=== PATIENT | female | born 1965 | race Caucasian/White ===

== ENCOUNTER 2017-06-21 11:00 | Outpatient (RCR) | payer OTHER, SELFPAY ==
--- NOTE | 2017-03-16 16:15 | HP.PTEVAL_ITS ---
Patient's Visit Information YVES INMAN is a 51 year old F referred to Physical Therapy by Kiara Justice with a diagnosis of Left Hip. Date of Evaluation: 03/16/17 Physical Therapist: Mary Lou Scott - Visit Plan Frequency: 2x /Week Duration: 4 Weeks Plan: Dry Needling and Aquatic Therapy for core s/s. - Subjective Subjective: 3 years ago she was having to use a walker due to what they thought was back pain- had several injections, normal EMG- 1/5 years of pain and was diagnosed with L5-S1 radiculopathy. Ended up with a torn hip labrum on the left oneal with radiating pain. Had surgery in December [address] Cordero and she had no idea the recovery. She can now walk but does her hip exercises at least 2x a week or it pops. She has hamstring tightness and glut tightness and her PCP sent her here for dry needling. Still had pain down the leg when her hip is really tight but not all the time and its nerve pain when it happens. Agg: stair climbing and walking long distances. Worst: 5/10 Best: 0/10 Eases: massage (every 3 weeks), tennis ball in her gluts. From surgery patient feels that she is 40% better. Sleep: disturbed toss/turn a lot at night. Surgeon has discharged her and suggested PT and aquatic therapy. - Objective Posture: FH, RS, Increased kyphosis- can correct with verbal cues. Gait: no deviation notes. HR/TR: able without incidence. SLS: 30 sec but incresed muscle activation left>right. ROM: WFL in all planes. Strength: Ankle: 5/5, Knee: 5/5, Hip: 4/5. Core: fair minus. FABBIR: positive, FELIX: Positive. Flexibility: HS: moderate, Gastroc: moderate - Goals Goal 1:: Patient will be I with HEP and progression Goal Time Frame: 4-6 Weeks Goal 2:: Patient will maintain proper posture t/o tx session to demo increased core s/s. Goal Time Frame: 4-6 Weeks Goal 3:: Patient will report 0/10 pain for 1 week Goal Time Frame: 4-6 Weeks Goal 4:: Patient will demo negative special tests for hip tightness Goal Time Frame: 4-6 Weeks - Rehabilitation Potential Physical Therapy Diagnosis: Patient present with hypmobility- she has decreased strength and muscular endurnace Rehabilitation Potential: Good - Anticipated Interventions Patient/Client Instruction: Educate patient on: Benefits of Fitness Program For the Purpose of:: To increase tolerance to activity/condition/position Therapeutic Exercise to Include: Strength training, Endurance training, Balance training, Body mechanics, Postural training, Flexibilty training, Gait and locomotor training, Dynamic Lumbar Stabilization For the Purpose of:: To improve muscle performance and motor function Manual Therapy Techniques to Include: Functional dry needling, Soft tissue mobilization For the Purpose of:: To improve nutrient delivery to tissue TENS: Yes Cryotherapy (ice pack, ice massage): Yes Thermo therapy (hot pack): Yes Ultrasound (thermal/non thermal): Yes For the Purpose of:: To decrease pain Thank you for the opportunity to evaluate your patient. For Medicare and Medicare HMO plans, please review the plan of care and approve it. It will need to be FAXED BACK to us at [phone] for Medicare purposes. Please let me know if there are questions or concerns regarding this plan of care. Physician Signature: Date:
--- NOTE | 2017-04-13 11:27 | HP.PTREVAL_ITS ---
Kiara Justice, It has been my pleasure to treat YVES INMAN over the last 10 visits for Left Hip. Please see the progress note below for an update on the physical therapy plan of care! Subjective: In pain from Tuesday did a lot more in the pool and it was just to much and then stood for 14 hours in [place] for an event on Tuesday so she is flared up today. Before the flare up she was making progress. The needling helpiing and was working towards goals in the pool. Wants to be able to stand from commode without the use of her hands and going up the stairs without pain. Feels that she is 30% towards her goals- but was able to picture herself being able to do land exercises again. Objective/Function: Patient was able to complete without incidence. She does have some bruising along her right hip but it is not painful. She had less pain at end of session- Posture is improving throughout physical therapy- she has incresase strength by one manual muscle grade. Plan Plan: Cont with POC- 2x a week for pool and 1 x for aquatics Goals Goal 1:: Patient will be I with HEP and progression Goal Time Frame: 4-6 Weeks Goal Progress: Progressing Goal 2:: Patient will maintain proper posture t/o tx session to demo increased core s/s. Goal Time Frame: 4-6 Weeks Goal Progress: Progressing Goal 3:: Patient will report 0/10 pain for 1 week Goal Time Frame: 4-6 Weeks Goal Progress: Progressing Goal 4:: Patient will demo negative special tests for hip tightness Goal Time Frame: 4-6 Weeks Goal Progress: Progressing Anticipated Interventions Patient/Client Instruction: Educate patient on: Benefits of Fitness Program For the Purpose of:: To increase tolerance to activity/condition/position Therapeutic Exercise to Include: Strength training, Endurance training, Balance training, Body mechanics, Postural training, Flexibilty training, Gait and locomotor training, Dynamic Lumbar Stabilization For the Purpose of:: To improve muscle performance and motor function Manual Therapy Techniques to Include: Functional dry needling, Soft tissue mobilization For the Purpose of:: To improve nutrient delivery to tissue TENS: Yes Cryotherapy (ice pack, ice massage): Yes Thermo therapy (hot pack): Yes Ultrasound (thermal/non thermal): Yes For the Purpose of:: To decrease pain Please do not hesitate to contact me at [phone] by phone or Fax: if you have questions or concerns regarding this new plan of care! Sincerely, Mary Lou Scott
== END 2017-06-21 11:30 | disposition home or self-care (01) ==
LOC: PT 11:00
PROVIDERS: Family Provider Internal Medicine; PCP Internal Medicine; Visit Provider Internal Medicine
DX: M25.552 Pain in left hip (principal); M79.605 Pain in left leg
CPT/HCPCS: 97113; 97140; 97161; 97530

== ENCOUNTER → 2017-10-25 08:48 | Outpatient (CLI) | payer OTHER, SELFPAY ==
[2017-10-25 10:51] LABS: ALB/GLOB Ratio 1.3 RATIO (0.9-2.4); AST(SGOT) 14 U/L (15-37); Alanine Aminotransfer ALT/SGPT 21 U/L (13-56); Albumin, Serum 3.8 g/dL (3.2-5.0); Alkaline Phosphatase 94 U/L (45-117); Anion Gap 8 (5-15); BUN 16 mg/dL (7-18); BUN/Creat Ratio 22.1 RATIO (10-20); Calcium,Total 8.7 mg/dL (8.5-10.1); Chloride 106 mmol/L (98-107); Cholesterol 243 mg/dL (200); Creatinine, Serum 0.72 mg/dL (0.55-1.02); EST Glomerular Filtration Rate 90 mL/min (>60); Est Glom Filt Rate - Afr Amer 109 mL/min (>60); Glucose 86 mg/dL (74-106); High Density Lipoprotein 73 mg/dL; Potassium 4.2 mmol/L (3.5-5.1); Protein, Total 6.8 g/dL (6.4-8.2); Sodium Level 142 mmol/L (136-145); Thyroid Stim Hormone (TSH) 1.89 uIU/mL (0.358-3.74); Triglycerides 60 mg/dL; Very Low Density Lipoprotein 12 mg/dL (5-40)
[2017-10-26 09:44] LABS: PTHIN 33.3 pg/mL (18.4-80.1)
[2017-10-26 09:53] LABS: Vitamin D,25 Hydroxy 52.6 ng/mL (29.95-100.01)
[2017-10-26 16:11] LABS: Endomysial Antibody IgA Negative (Negative); Immunoglobulin A 114 mg/dL (87-352)
[2017-10-27 12:52] LABS: t-Transglutaminase IgA <2 U/mL (0-3)
== END ==
PROVIDERS: Family Provider Internal Medicine; PCP Internal Medicine; Visit Provider Internal Medicine
DX: R10.84 Generalized abdominal pain (principal); E04.2 Nontoxic multinodular goiter; E55.9 Vitamin D deficiency, unspecified; E78.2 Mixed hyperlipidemia; R68.82 Decreased libido; E21.5 Disorder of parathyroid gland, unspecified
CPT/HCPCS: 36415; 80053; 80061; 82306; 82627; 82784; 83516; 83970; 84443; 86255; 82626

== ENCOUNTER 2017-12-28 16:30 | Outpatient (RCR) | payer SELFPAY ==
--- NOTE | 2017-12-19 13:45 | HP.PTEVAL_ITS ---
Patient's Visit Information YVES INMAN is a 52 year old F referred to Physical Therapy by Out of Town Doctor with a diagnosis of L hip pain. Date of Evaluation: 12/14/17 Physical Therapist: Mian Mayo - Visit Plan Frequency: 1x/Week Duration: 4 Weeks Plan: DN to inferior glute, ischial tuberosity, piriformis. - Subjective Subjective: Pt. is here today for her initial evaluation with diagnosis of L hip pain. Pt. is known to this PT from previous PT episodes. 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 Pt. reports having improved symptoms since starting PT at alternate facility with light core stability exercises. Pt. has had injections into her glute without improvement. Pt. denies N/T and no groin pain. Pt. did have MRI of hip labrum without issues , no tear noted. Pt. continues to have pain with prolonged sitting and with aggressive exercises. Pt. is hopeful to break up her scar tissue with DN reducing symptoms. - Pain L posterior hip Pain Intensity (Out of 10): 2 Pain Intensity Range: 1, 4 - Objective POSTURE: PT. has normal posture in sitting and standing. Pt. has slight increased lumbar lordosis. PALPATION: Pt. has increased tenderness at inferior L glute, at ischial tuberosity. NO lumbar spine issues. NEUROLOGICAL: Normal, all intact. ROM: Pt. has normal ROM of lumbar spine. Slight reduction in hip IR on L side. normal HS length and hip flexor length. - Goals Goal 1:: Pt. to be I with HEP. Goal Time Frame: 4-6 Weeks Goal 2:: Pt. to have icnreased hip IR without increase in symptoms. Goal Time Frame: 4-6 Weeks Goal 3:: Pt. to be able to sit without issues for unlimited time. - Rehabilitation Potential Physical Therapy Diagnosis: Pt. has signs and symptoms consitent with L hip pain. Pt. and physician are hopeful to decrease L gluteal scar tissue with DN allowing for reduce pressure to sciatic nerve. Rehabilitation Potential: Fair - Anticipated Interventions Patient/Client Instruction: Educate patient on: Condition, Plan of Care, Risk Factors, Benefits of Fitness Program For the Purpose of:: To improve health and function, To foster healthy habits, To improve decision making, To facilitate caregiver knowledge, To improve self management, To prevent re-injury, To improve ability to perform tasks related to life management, To improve tolerance to ADL's Manual Therapy Techniques to Include: Functional dry needling, Soft tissue mobilization For the Purpose of:: To improve health of tissue, To decrease soft tissue restriction, To increase flexibility/ROM Thank you for the opportunity to evaluate your patient. For Medicare and Medicare HMO plans, please review the plan of care and approve it. It will need to be FAXED BACK to us at [phone] for Medicare purposes. Please let me know if there are questions or concerns regarding this plan of care. Physician Signature: Date:
--- NOTE | 2018-04-28 14:07 | HP.PT.NRP ---
HP - Discharge Summary (1) - Patient Information YVES INMAN was seen in my office for initial evaluation on 12/14/17. The following Plan of Care was established for this patient: Initial Frequency: 1x/Week Initial Duration: 4 Weeks - Anticipated Interventions Patient/Client Instruction: Educate patient on: Condition, Plan of Care, Risk Factors, Benefits of Fitness Program For the Purpose of:: To improve health and function, To foster healthy habits, To improve decision making, To facilitate caregiver knowledge, To improve self management, To prevent re-injury, To improve ability to perform tasks related to life management, To improve tolerance to ADL's Manual Therapy Techniques to Include: Functional dry needling, Soft tissue mobilization For the Purpose of:: To improve health of tissue, To decrease soft tissue restriction, To increase flexibility/ROM This patient was last seen in our office 12/28/17. Pertinent comments regarding their Physical therapy will appear below: Pt. was seen for self pay dry needling of her hip. Pt. was doing well, but did not attend her last visit. Pt. has not been seen in ~4 months and will be DC from PT at this point in time. At this point I will be discontinuing this patient from physical therapy. I would be happy to see this patient again in the future if found appropriate by the physician. Thank you! Mian Mayo
== END 2017-12-28 19:00 | disposition home or self-care (01) ==
LOC: PT 16:30
PROVIDERS: Family Provider Internal Medicine; PCP Internal Medicine
DX: R69 Illness, unspecified (principal)

== ENCOUNTER 2018-05-08 19:56 | Observation (INO) | payer OTHER, SELFPAY ==
[2018-05-08] VITALS (7 sets, daily range): BP systolic 118–169; BP diastolic 79–111; PULSE 83–106; RESP 12–23; TEMP 36.5; O2SAT 94–100; BMI 28.8
--- NOTE | 2018-05-08 20:15 | RAD_ITS ---
STUDY: X-RAY CHEST REASON FOR EXAM: Female, 52 years old. Left arm numbness TECHNIQUE: Frontal and lateral views of the chest. COMPARISON: None. FINDINGS: Lungs are hyperaerated. The lungs are clear and expanded. There is no demonstrated pleural abnormality. Normal size heart. Normal mediastinum and terry. Normal visualized pulmonary arteries. Normal visualized aortic arch and descending thoracic aorta. Normal visualized thoracic spine. Normal visualized ribs, clavicles, and shoulders. There is no demonstrated abnormality of the visualized soft tissue structures of the upper abdomen. IMPRESSION: COPD otherwise Normal x-ray examination of the chest. Electronically Signed: Elio Garvin MD at 21:31 EST , Service support , RAD/Chest PA and Lateral
--- NOTE | 2018-05-08 20:15 | EKG12_ITS ---
Test Reason : Blood Pressure : / mmHG Vent. Rate : 095 BPM Atrial Rate : 095 BPM P-R Int : 146 ms QRS Dur : 078 ms QT Int : 368 ms P-R-T Axes : 059 042 041 degrees QTc Int : 462 ms Normal sinus rhythm Possible Left atrial enlargement Nonspecific T wave abnormality Prolonged QT Abnormal ECG Confirmed by JORGE WATTS, JAILYN ([id number]), writer editor SIDDHARTH COOK ([id number]) on 05/11/2018 3:36:23 PM Referred By: BEVERLY Confirmed By:JAILYN PATEL MD
--- NOTE | 2018-05-08 20:28 | CT_ITS ---
STUDY: CT BRAIN WITHOUT CONTRAST REASON FOR EXAM: Female, 52 years old. Left-sided facial numbness and weakness RADIATION DOSAGE (If Supplied By Facility): CTDIvol = ( 44.99 ) mGy, DLP = ( 745.49 ) mGycm TECHNIQUE: Transaxial CT imaging of the brain was performed without administration of intravenous contrast material. Individualized dose optimization techniques were used for this CT. COMPARISON: MR brain December 07, 2019 3916 FINDINGS: Normal soft tissue structures. Normal calvarium. Normal size ventricles and extra-axial spaces for the patient's age. Normal white matter tracts of the cerebral hemispheres. Normal basal ganglia and thalami. Normal brainstem. Normal cerebellum. There is no intracranial hemorrhage. There are no findings of an acute ischemic infarction. Normal visualized paranasal sinuses. CT/Brain/Head without Contrast IMPRESSION: Normal unenhanced CT scan of the brain. Electronically Signed: Elio Garvin MD at 21:17 EST , Service support ,
[2018-05-08 20:34] LABS: Absolute Lymphocyte Count 3.83 X10^3/ul (0.83-4.51); Absolute Neutrophil Count 2.3 X10^3/uL (2.0-7.7); Basophil# 0.04 X10^3/uL; Basophil% 0.6 % (0-1); Eosinophil# 0.14 X10^3/uL; Hematocrit 42.5 % (37-47); Hemoglobin 14.3 g/dl (12.0-15.0); International Normalized Ratio 0.9; Lymphocyte # 3.83 X10^3/ul (4.0); Lymphocyte % 55.8 % (19-41); Mean Corp Hgb Conc 33.6 g/gl (32-36); Mean Corpuscular Hgb 31.9 pg (27.0-32.0); Mean Corpuscular Volume 94.9 fL (81-99); Mean Platelet Vol. 10.8 fl (6.2-12.0); Monocyte# 0.53 X10^3/uL; Monocyte% 7.7 % (0-10); Neutrophil # 2.31 X10^3/uL (2.7-7.7); Neutrophil % 33.8 % (47-70); Partial Thromboplast Time 26.8 Seconds (24.1-36.2); Platelet Count 215 K/mm3 (150-450); RBC Distribution Width CV 12.2 % (11.6-14.6); RBC Distribution Width SD 41.7 fl (35.1-43.9); Red Blood Count 4.48 M/mm3 (4.2-5.4); White Blood Count 6.9 K/mm3 (4.4-11.0)
[2018-05-08 20:37] LABS: POSITIVE COUNT NO; POSITIVE DIFFERENTIAL NO; POSITIVE MORPHOLOGY NO
[2018-05-08 20:38] LABS: Anion Gap 7 (5-15); BUN 14 mg/dL (7-18); BUN/Creat Ratio 15.1 RATIO (10-20); Calcium,Total 9.1 mg/dL (8.5-10.1); Chloride 101 mmol/L (98-107); Creatinine, Serum 0.93 mg/dL (0.55-1.02); EST Glomerular Filtration Rate 68 mL/min (>60); Est Glom Filt Rate - Afr Amer 82 mL/min (>60); Glucose 101 mg/dL (74-106); Potassium 3.4 mmol/L (3.5-5.1); Sodium Level 137 mmol/L (136-145)
[2018-05-08] MEDS: 0.9% Normal Saline 1,000 ML 50 ML IV (20:43)
[2018-05-08 20:51] LABS: Bedside Glucose 113 mg/dL (70-110)
--- NOTE | 2018-05-08 21:42 | ED.RN ---
PER DR. JOINER NO LONGER NEED TO DO NIH SCALE ASSESSMENT.
--- NOTE | 2018-05-08 22:53 | ED.RN ---
DR ROSALES PAGED FOR DR JOINER
--- NOTE | 2018-05-08 23:00 | ED.VISSUMM ---
- ER Visit Summary Date of Service: 05/08/18 Chief Complaint: Paresthesias History of Present Illness: The patient is a 52 F who reports left TMJ pain for the past couple days. She did not feel well yesterday and had a headache around the right judaism area. Today she noted some tingling and numbness to her left face. She also noted some slight tingling to her left forearm. She has not had any weakness or difficulty with speech. She reports her sinuses feel congested and full. Physical Examination: Blood pressure on arrival is 169/111, other vitals normal. Patient sitting upright in bed no acute distress. Head neck examination was TMs to be clear bilaterally. Posterior pharynx examination is normal. No tenderness of the mastoid air cells. Heart is regular rate and rhythm. Lungs sounds clear. Abdomen is soft nontender. Neuro exam reveals an NIH score of 1 for decreased sensation to light touch. This is noted over the left forearm and left forehead only. Test Results: EKG is sinus at 95 with diffuse 1/[address] depression. CBC and chemistry studies significant only for potassium 3.4. Coags normal. CT head is normal. Two-view chest x-ray is normal. Emergency Department Course and Treatment: Patient was given IV fluids. Repeat evaluation reveals very minimal remaining symptoms. Blood pressure is 127/83. We discussed possibility of stroke and further workup. I did speak with the patient's primary care physician. At this time we are in agreement to air on the side of caution and bring her in for further evaluation including MRI. Treatment Plan: [] Disposition: Admit Impression: Left facial paresthesias This note was generated with [employer] dictation software. It may contain incorrect words, spelling, and punctuation that were not noted in review of the chart prior to signing ED Disposition - Plan for ED Patient: Disposition: Acute Care Hospital [facility] Chief Complaint: Neuro S/Sx
--- NOTE | 2018-05-08 23:14 | PCM.HP.STD ---
Problem List (1) Paresthesia of left arm Status: Acute (2) Lt facial numbness Status: Acute History of Present Illness Date of Admission: 05/08/18 Chief Complaint: left facial numbness, left arm weakness The patient is a 52 year old female patient with chief complaint of left facial numbness and left arm weakness. The onset of this was earlier today. 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 The numbness in her face is described in a distribution that emanates from the TMJ area. She later developed a sensation of weakness in her left arm so she came to the ER for evaluation. Initial NIH was [address] scan head is normal. She says hse has had some neck pain recently as well. She will be kept overnight for observation and MRI of head and neck in am. Past Medical History Allergies latex Allergy (Verified 05/08/18 20:12) Hives meloxicam Allergy (Verified 05/08/18 20:12) Anaphylaxis nickel Allergy (Verified 05/08/18 20:12) Hives esomeprazole [From Nexium] Adverse Reaction (Verified 05/08/18 20:21) Upset Stomach Smoking Status: Never smoker - *Family History Maternal History Items: No pertinent history Review of Systems Constitutional: Denies: Chills, Fever, Weight Change HEENT: Denies: Head Aches, Sinus Congestion, Sinus Drainage Cardiovascular: Denies: Chest Pain, Palpitations Respiratory: Denies: Cough, Shortness of breath at rest, Sputum production Gastrointestinal: Denies: Abdominal Pain, Nausea, Vomiting Genitourinary: Denies: Dysuria Musculoskeletal: Denies: Joint Pain, Joint Tenderness Skin: Denies: Rash, Wounds Neurological: Reports: Focal weakness, Numbness, Tingling Psychiatric: Denies: Anxiety, Depression, Homicidal Ideations, Suicidal Ideations Hematologic/ Lymphatic: Denies: Easy Bruising, Easy Bleeding VTE Information - Inpt Only VTE Present on Admission: No VTE Mechan Device Prophylaxis: None VTE Pharm Prophylaxis ordered?: Yes Patient Problems: Active and Suspected Problems Paresthesia of left arm (Acute) Lt facial numbness (Acute) - Physical Exam General: Alert, Oriented x3, Cooperative HEENT: Atraumatic, PERRLA, EOMI, Normocephalic Neck: Supple, No JVD, Negative Carotid Bruits Lungs: Clear to auscultation, Normal air movement Cardiovascular: Regular rate, No murmurs Abdomen: Bowel Sounds Present, Soft, Non Tender Extremities: No edema, Capillary Refill Less than 3 Seconds Skin: No rashes, No breakdown Musculoskeletal: No Tenderness to Palpation of Joints or Extremities Neurological: Cranial nerves II-XII grossly intact Psych/Mental Status: Normal Affect, Appropriate Vital Signs Temp Pulse Resp BP Pulse Ox 97.7 F L 94 16 127/83 H 95 05/08/18 19:57 05/08/18 22:23 05/08/18 22:23 05/08/18 22:23 05/08/18 22:23 Oxygen Delivery Method Room Air Weight: 173 lb 4.533 oz Body Mass Index (BMI) 28.8 Finger Stick Blood Glucose 113 Laboratory Tests Past 24 Hrs 05/08/18 05/08/18 05/08/18 20:05 20:05 20:05 WBC 6.9 RBC 4.48 Hgb 14.3 Hct 42.5 MCV 94.9 MCH 31.9 MCHC 33.6 RDW 12.2 RDW Differential 41.7 Plt Count 215 MPV 10.8 Immature Gran % (Auto) 0.100 Neut % (Auto) 33.8 L Lymph % (Auto) 55.[address] [place] % (Auto) 7.7 Eos % (Auto) 2.0 Baso % (Auto) 0.6 Absolute Neuts (auto) 2.3 Absolute Lymphs (auto) 3.83 Total Counted Not Reportable PT 12.0 INR 0.9 APTT 26.8 Sodium 137 Potassium 3.4 L Chloride 101 Carbon Dioxide 29.0 Anion Gap 7 BUN 14 Creatinine 0.93 Estim Creat Clear Calc 64.40 Est GFR (MDRD) Af Amer 82 Est GFR (MDRD) Non-Af 68 BUN/Creatinine Ratio 15.1 Glucose 101 Calcium 9.1 POC Glucose 05/08/18 20:35 POC Glucose 113 H Assessment/Plan All Active Problems Paresthesia of left arm (Acute) Lt facial numbness (Acute) Plan - admit to PCU for observation - neuro checks q 4 hrs - aspirin per routine - MRI head and neck in am - continue routine home medications - LMWH for DVT prophylaxis Code Visit OBSV E&M: 77228 Initial observation care L2
[2018-05-09] VITALS (11 sets, daily range): BP systolic 100–119; BP diastolic 61–78; PULSE 70–91; RESP 16–18; TEMP 36.6–37.2; O2SAT 94–96; BMI 28.0
--- NOTE | 2018-05-09 00:21 | MRI_ITS ---
STUDY: MRI BRAIN WITHOUT CONTRAST REASON FOR EXAM: Female, 52 years old. Numbness and tingling in left face. Weakness in left arm. Headache. Blurred vision. TECHNIQUE: Standardized multiplanar fat and water weighted pulse sequences were obtained. COMPARISON: 12/06/2016. FINDINGS: No restricted diffusion to suspect acute or subacute ischemic infarct. No focal signal abnormalities throughout the brain parenchyma. All of the pulse sequences are normal. Normal size of the ventricles and extra-axial spaces for the patient's age. Normal white matter tracts of the supratentorial brain. Normal bilateral basal ganglia. Normal thalami. There is no extra-axial fluid accumulation. Normal flow voids within the major intracranial circulation suggesting patency by spin echo criteria. Normal sella turcica, pituitary gland, infundibular stalk, optic chiasm and hypothalamus. Normal tectal plate and pineal gland. Normal midbrain, sandra and medulla. Normal cerebellum. Normal basal cisterns. Normal bilateral temporal bones. Normal bilateral internal auditory canals. No demonstrated orbital abnormality, within the constraints of a routine brain study. Air-fluid level in the left sphenoid sinus is unchanged. Benign mucus retention cyst in the left maxillary sinus is unchanged. Normal calvarium and skull base. Normal visualized soft tissue structures. Normal visualized upper cervical spine. MRI/Brain without Contrast IMPRESSION: 1. Normal MRI of the brain without contrast. 2. Persistent air-fluid level in the left sphenoid sinus is suspicious for acute sinusitis. 3. Small benign mucus retention cyst in the left maxillary sinus. 4. No interval change when compared to 12/06/2016. Electronically Signed: Avtar Allen MD at 12:55 EST , Service support ,
--- NOTE | 2018-05-09 00:21 | MRI_ITS ---
STUDY: MRA NECK WITHOUT CONTRAST REASON FOR EXAM: Female, 52 years old. Numbness and tingling left facial and weakness in left arm. Headache. Left blurred vision. TECHNIQUE: Source images were obtained, MIPs were performed. The study was performed unenhanced. COMPARISON: None. FINDINGS: RIGHT CAROTID ARTERIES: Normal right common carotid artery (CCA). Normal right internal carotid bulb. Normal origin of the right internal carotid (ICA) artery without a hemodynamically significant stenosis. Normal visualized cervical portion of the right internal carotid artery. Normal origin of the right external carotid artery (ECA). LEFT CAROTID ARTERIES: Normal left common carotid artery (CCA). Normal left internal carotid bulb. Normal origin of the left internal carotid (ICA) artery without a hemodynamically significant stenosis. Normal visualized cervical portion of the left internal carotid artery. Normal origin of the left external carotid artery (ECA). VERTEBRAL ARTERIES: Normal antegrade flow within the bilateral vertebral artery without a hemodynamically significant stenosis. The left vertebral artery is dominant. MRI/MRA Neck without Contrast IMPRESSION: Normal bilateral cervical carotid and vertebral arteries. Electronically Signed: Avtar Allen MD at 10:42 EST , Service support ,
[2018-05-09 07:22] LABS: Cholesterol 246 mg/dL (200); High Density Lipoprotein 67 mg/dL; Triglycerides 100 mg/dL; Very Low Density Lipoprotein 20 mg/dL (5-40)
[2018-05-09] MEDS: Acetaminophen 325 MG Tablet 650 MG PO (10:57)
[2018-05-09] MEDS: Aspirin 81 MG TAB.CHEW PO (10:57)
[2018-05-09] MEDS: 0.9% NaCl Peripheral Flush Adult/Peds IV (10:58)
--- NOTE | 2018-05-09 14:46 | CT_ITS ---
STUDY: CTA OF THE BRAIN REASON FOR EXAM: Female, 52 years old. Headache RADIATION DOSAGE (If Supplied By Facility): CTDIvol = ( 17.32 ) mGy, DLP = ( 390.41 ) mGycm TECHNIQUE: CT angiography was performed with a multi-detector CT scanner. Data acquisition was obtained from the skull base through the vertex following intravenous administration of 100 ml of Isovue-370. MIP images were reconstructed from the axial data set. Post-processing of the angiographic images was performed, with multiplanar reformation and 3D reconstruction. Individualized dose optimization techniques were used for this CT. COMPARISON: None. FINDINGS: Normal bilateral petrous carotid arteries. Normal right cavernous carotid artery with a normal supraclinoid bifurcation. Normal left cavernous carotid artery with a normal supraclinoid bifurcation. Normal right A1 segments of the anterior cerebral artery. Normal left A1 segments of the anterior cerebral artery. Normal intact anterior communicating artery (ACOM). Normal bilateral A2 segments of the anterior cerebral arteries. Normal right M1 and M2 segments of the middle cerebral arteries, with a normal M1 bifurcation. Normal left M1 and M2 segments of the middle cerebral arteries, with a normal M1 bifurcation. Normal right posterior communicating artery (PCOM). Normal left posterior communicating artery (PCOM). Normal bilateral vertebral arteries. Normal basilar artery with a normal basilar bifurcation. The visualized bilateral superior cerebellar (SCA) arteries are normal. Normal bilateral P1, P2 and visualized P3 segments of the posterior cerebral arteries. There is no demonstrated aneurysm of the [place] of [place]. There is no demonstrated abnormality of the visualized brain. CT/CTA Head W/WO Contrast IMPRESSION: Normal [place] of [place] without a demonstrated aneurysm or hemodynamically significant stenosis. Electronically Signed: Lamin Parada MD at 15:33 EST , Service support ,
[2018-05-09] MEDS: Acetaminophen/Butalbital/Caffe 1 Tablet 2 TABLET PO (15:34)
--- NOTE | 2018-05-09 15:44 | DCINST_ITS ---
- Discharge Diagnoses Current Active Problems: Current Active and Chronic Problems Paresthesia of left arm (Acute) Lt facial numbness (Acute) You will use the following diet at home:: No restrictions Your food should be the consistency of: Regular Your liquids should be the consistency of: Regular/Thin Discharge Activity: Return to Normal Activity Weight Bearing Status: Full weight bearing Allergies/Adverse Reactions: Allergies latex Allergy (Verified 05/08/18 20:12) Hives meloxicam Allergy (Verified 05/08/18 20:12) Anaphylaxis nickel Allergy (Verified 05/08/18 20:12) Hives esomeprazole [From Nexium] Adverse Reaction (Verified 05/08/18 20:21) Upset Stomach thimerosal Adverse Reaction (Verified 05/09/18 00:39) Angioedema Medications to take at Discharge Acetaminophen [Tylenol Tablet] 650 mg PO Q4H PRN PRN tablet 05/09/18 Valacyclovir HCl [Valtrex] 500 mg PO DAILY 05/09/18 Primary Care Physician: Kiara Justice DO [Primary Care Provider] - Please follow up with your Primary Care Physician in: in one week Test Results: Test results from this visit will be discussed in further detail at your follow- up appointment, if applicable.
--- NOTE | 2018-05-10 10:30 | PCM.DC.SUM ---
Discharge Date and Diagnosis Date of Admission: 05/08/18 Date of Discharge: 05/09/18 - Primary Discharge Diagnosis #1 left-sided facial paresthesia-etiology unknown #2 hypokalemia #3 cephalgia-type unknown Hospital Course and Treatment Operations: None Procedures: None Summary of Care Provided: The patient is a 52 year old F seen in the emergency room at [facility] with complaints of paresthesias over the left side of her face. She also complained of cephalgia. Workup in the emergency room included an EKG which showed a normal sinus rhythm along with diffuse 1/[address] depression in multiple leads, CBC and chemistry studies were significant for potassium of 3.4-, CT of the head was unremarkable, chest x-ray was unremarkable. Initially the patient was hypertensive in the emergency room but repeat blood pressure was 127/83. Patient was placed and observation status on PCU, an MRI of the brain and an MRA of the neck were obtained and were unremarkable. MRA of the head however was not carried out and in place of this, patient had a CTA of her head which was unremarkable. The exact cause of her left facial paresthesias was unknown. Patient was given Fioricet for her headache. She was given oral potassium replacement. On 05/09/18, patient was seen and examined: On examination she appeared in good health and spirits. Vital signs as documented. Skin warm and dry and without overt rashes. Neck without JVD. Lungs clear. Heart exam notable for regular rhythm, normal sounds and absence of murmurs, rubs or gallops. Abdomen unremarkable and without evidence of organomegaly, masses, or abdominal aortic enlargement. Extremities nonedematous. Neuro: Cranial nerves II through XII are grossly intact, light touch and pinprick sensation is intact, no focal motor deficits were noted. Psych: Patient is alert and oriented x3, she does not appear anxious or depressed. On 05/09/18, patient was seen and examined and felt to be in stable condition for discharge home - Physical Exam Vital Signs Temp Pulse Resp BP Pulse Ox 98.1 F 70 16 106/68 96 05/09/18 16:25 05/09/18 16:25 05/09/18 16:25 05/09/18 16:25 05/09/18 16:25 Oxygen Delivery Method Room Air Weight: 76.4 kg Body Mass Index (BMI) 28.0 Finger Stick Blood Glucose 113 Intake and Output for Last 24 Hours 05/08/18 05/09/18 05/10/18 23:59 23:59 23:59 Intake Total 1130 / 1130 Balance 1130 / 1130 Discharge Activity: Return to Normal Activity Weight Bearing Status: Full weight bearing Home Medications: Medications to take at Discharge Acetaminophen [Tylenol Tablet] 650 mg PO Q4H PRN PRN tablet 05/09/18 Valacyclovir HCl [Valtrex] 500 mg PO DAILY 05/09/18 Primary Care Physician: Kiara Justice DO [Primary Care Provider] - Please follow up with your Primary Care Physician in: in one week Disposition: Home Minutes spent on discharge:: 30 Patient Condition:: Stable Medical Necessity - Tobacco Use Smoking Status: Never smoker Meaningful Use Info Meaningful Use Diagnoses (Choose all that apply): None applicable Code Visit OBSV E&M: 60841 Observation care discharge
== END 2018-05-09 15:43 | disposition home or self-care (01) ==
LOC: ED 20:33 → PCU 23:37
PROVIDERS: Admitting Provider Family Medicine; Emergency Provider Emergency Medicine; Family Provider Internal Medicine; PCP Internal Medicine; Visit Provider Internal Medicine
DX: R20.2 Paresthesia of skin (principal); E87.6 Hypokalemia; R51 Headache; R29.701 NIHSS score 1; M54.2 Cervicalgia; R53.1 Weakness
CPT/HCPCS: 36415; 70450; 70496; 70547; 70551; 71046; 80048; 80061; 82962; 85025; 85610; 85730; 93005; 99218; 99283; J7030; Q9967; A4216; G0378

== ENCOUNTER → 2018-06-06 10:49 | Outpatient (CLI) | payer OTHER, SELFPAY ==
[2018-05-09 00:28] VITALS: BMI 28.0
--- NOTE | 2018-06-06 10:53 | RAD_ITS ---
STUDY: X-RAY CHEST REASON FOR EXAM: Female, 52 years old. Follow-up COPD TECHNIQUE: Frontal and lateral views of the chest were obtained. COMPARISON: May 08, 2018 FINDINGS: The lungs are hyperinflated. There are no focal airspace opacities. There is no demonstrated pleural abnormality. The cardiac silhouette is normal in size. The mediastinum and hilar regions are unremarkable. Normal visualized pulmonary arteries. Normal visualized aortic arch and descending thoracic aorta. The thoracic spine is unremarkable. The visualized ribs, clavicles, and shoulders are unremarkable. There is no demonstrated abnormality of the visualized upper abdomen. RAD/Chest PA and Lateral IMPRESSION: No acute cardiopulmonary abnormalities. Stable hyperinflation. Electronically Signed: Carlene Azul MD at 23:58 EST Tel Direct: [phone], Service support ,
== END ==
PROVIDERS: Family Provider Internal Medicine; PCP Internal Medicine; Referring Provider Internal Medicine; Visit Provider Internal Medicine
DX: R91.8 Other nonspecific abnormal finding of lung field (principal)
CPT/HCPCS: 71046

== ENCOUNTER → 2019-01-18 08:51 | Outpatient (CLI) | payer OTHER, SELFPAY ==
[2018-05-09 00:28] VITALS: BMI 28.0
[2019-01-18 10:38] LABS: ALB/GLOB Ratio 1.2 RATIO (0.9-2.4); AST(SGOT) 13 U/L (15-37); Alanine Aminotransfer ALT/SGPT 21 U/L (13-56); Albumin, Serum 3.7 g/dL (3.2-5.0); Alkaline Phosphatase 95 U/L (45-117); Anion Gap 6 (5-15); BUN 16 mg/dL (7-18); BUN/Creat Ratio 21.7 RATIO (10-20); Chloride 105 mmol/L (98-107); Cholesterol 237 mg/dL (200); Creatinine, Serum 0.74 mg/dL (0.55-1.02); EST Glomerular Filtration Rate 88 mL/min (>60); Est Glom Filt Rate - Afr Amer 106 mL/min (>60); Globulin 3.2 g/dL (2.2-4.2); Glucose 98 mg/dL (74-106); High Density Lipoprotein 72 mg/dL; Potassium 4.2 mmol/L (3.5-5.1); Protein, Total 6.9 g/dL (6.4-8.2); Sodium Level 140 mmol/L (136-145); Thyroid Stim Hormone (TSH) 1.02 uIU/mL (0.358-3.74); Triglycerides 72 mg/dL; Very Low Density Lipoprotein 14 mg/dL (5-40)
== END ==
PROVIDERS: Family Provider Internal Medicine; PCP Internal Medicine; Referring Provider Internal Medicine Endocrinology, Diabetes & Metabolism; Visit Provider Internal Medicine Endocrinology, Diabetes & Metabolism
DX: E04.2 Nontoxic multinodular goiter (principal); E78.2 Mixed hyperlipidemia; E55.9 Vitamin D deficiency, unspecified
CPT/HCPCS: 36415; 80053; 80061; 82306; 84443

== ENCOUNTER → 2019-03-01 08:34 | Outpatient (CLI) | payer OTHER, SELFPAY ==
--- NOTE | 2019-03-01 08:36 | BI_ITS ---
MAMMOGRAPHY - BILATERAL SCREENING REASON FOR EXAM: Female, 53 years old. Routine annual screening examination. PERTINENT HISTORY: Non-contributory. TECHNIQUE: Digital bilateral breast rachel (3D mammographic acquisition) in the CC and MLO projections. 2-D mediolateral oblique (MLO) and craniocaudad (CC) views of both breasts were obtained. CAD: Full Field Digital Mammography with Computer Added Detection was performed. COMPARISON: Comparison is made with prior examination dated December 09, 2016. FINDINGS: Breast Composition: The breasts are heterogeneously dense, which may obscure small masses. There are no dominant masses or suspicious calcifications. Stable appearance of the benign appearing bilateral axillary lymph nodes. No other significant abnormalities are identified. There has been no significant change since the prior study. BI/SCREEN MAMM (CAD) W/RACHEL BILAT IMPRESSION: Stable bilateral screening mammogram. Yearly follow-up mammogram recommended. (A) ASSESSMENT CATEGORY: BIRADS Category 2: Benign. A letter regarding these results will be sent to the patient by the facility within 30 days. Approximately 10% of breast cancers are not detected by mammography. A normal mammogram should not delay biopsy of a clinically suspicious abnormality. [id number] Electronically Signed: Martir Guerrero, at 10:22 EDT , Service support ,
== END ==
PROVIDERS: Family Provider Internal Medicine; PCP Internal Medicine; Referring Provider Obstetrics & Gynecology; Visit Provider Obstetrics & Gynecology
DX: Z12.31 Encounter for screening mammogram for malignant neoplasm of breast (principal)
CPT/HCPCS: 77063; 77067

== ENCOUNTER 2019-07-06 12:01 | Inpatient (IN) | payer OTHER, SELFPAY ==
[2019-07-06] VITALS (10 sets, daily range): BP systolic 106–137; BP diastolic 67–87; PULSE 62–95; RESP 13–18; TEMP 36.5–36.8; O2SAT 96–100; BMI 29.1; BMI 29.5
--- NOTE | 2019-07-06 13:22 | EKG12_ITS ---
Test Reason : DIZZINESS Blood Pressure : / mmHG Vent. Rate : 053 BPM Atrial Rate : 053 BPM P-R Int : 158 ms QRS Dur : 084 ms QT Int : 414 ms P-R-T Axes : 064 050 039 degrees QTc Int : 388 ms Sinus bradycardia Otherwise normal ECG Confirmed by JORGE WATTS, JAILYN ([id number]), photography editor ELLI SUTHERLAND ([id number]) on 07/10/2019 9:03:48 AM Referred By: EFREN Confirmed By:JAILYN PATEL MD
--- NOTE | 2019-07-06 13:27 | CT_ITS ---
STUDY: CTA HEAD AND NECK WITH CONTRAST REASON FOR EXAM: Female, 53 years old. DIZZY, LT FACIAL NUMBNESS, LT ARM N/T, NECK PAIN, POSS INJURY TO NECK DEC . NEURO DEFICITS RADIATION DOSAGE (If Supplied By Facility): CTDIvol = ( 27.71 ) mGy, DLP = ( 1353.82 ) mGycm TECHNIQUE: CT angiography was performed with a multi-detector CT scanner. Data acquisition was obtained from the skull base through the vertex following intravenous administration of 100ML ISOVUE 370. MIP images were reconstructed from the axial data set. Post-processing of the angiographic images was performed, with multiplanar reformation and 3D reconstruction. Individualized dose optimization techniques were used for this CT. COMPARISON: MRA dated May 09, 2018 and CTA of the head dated May 09, 2018 FINDINGS: There are coarse calcifications associated with low-attenuation foci within the right lobe of the thyroid gland. There is persistent opacification of the sphenoid sinuses consistent with a history of sinusitis. There is a stable rounded opacity within the left maxillary sinus which likely reflects a mucous retention cyst or polyp. Normal bilateral petrous carotid arteries. Normal right cavernous carotid artery with a normal supraclinoid bifurcation. Normal left cavernous carotid artery with a normal supraclinoid bifurcation. Normal right A1 segments of the anterior cerebral artery. Normal left A1 segments of the anterior cerebral artery. Normal intact anterior communicating artery (ACOM). Normal bilateral A2 segments of the anterior cerebral arteries. Normal right M1 and M2 segments of the middle cerebral arteries, with a normal M1 bifurcation. Normal left M1 and M2 segments of the middle cerebral arteries, with a normal M1 bifurcation. Normal right posterior communicating artery (PCOM). Normal left posterior communicating artery (PCOM). Normal bilateral vertebral arteries. Normal basilar artery with a normal basilar bifurcation. The visualized bilateral superior cerebellar (SCA) arteries are normal. Normal bilateral P1, P2 and visualized P3 segments of the posterior cerebral arteries. There is no demonstrated aneurysm of the morongo of [place]. There is no demonstrated abnormality of the visualized brain. AORTIC ARCH: Normal visualized aortic arch. Normal origins of the brachiocephalic, left common carotid, and left subclavian arteries. RIGHT CAROTID ARTERIES: Normal right common carotid artery (CCA). Normal right common carotid bulb. Normal origin of the right internal carotid (ICA) artery without a hemodynamically significant stenosis. Normal visualized cervical portion of the right internal carotid artery. Normal origin of the right external carotid artery (ECA). LEFT CAROTID ARTERIES: Normal left common carotid artery (CCA). Normal left common carotid bulb. Normal origin of the left internal carotid (ICA) artery without a hemodynamically significant stenosis. Normal visualized cervical portion of the left internal carotid artery. Normal origin of the left external carotid artery (ECA). VERTEBRAL ARTERIES: Normal bilateral vertebral arteries. CT/CTA Head AND Neck W/ Contrast IMPRESSION: Within normal limits CTA Head and neck with contrast. Electronically Signed: Dory Zepeda MD at 15:15 EST Tel , Service support ,
--- NOTE | 2019-07-06 13:28 | ED.DCSUM_ITS ---
History of Present Illness Chief Complaint: Dizziness Detail of Chief Complaint: aubree lyon -- see below Informant: Patient Current Severity: Mild Maximum Severity: Severe Associated Symptoms: Headache - off and on x 3 weeks; bitemporal. Negative for: Nausea, Vomiting, Chest Pain Narrative: Patient states she potentially had a neck injury about 3 weeks ago [facility] she sat in the chair at the sink/basin and they extended her neck into the basin to wash it, as usual, but she states that it was uncomfortable and she was looking forward to it ending. There were no acute neurologic symptoms at that point, but after walking out she noticed some type of snap-feeling and pain and she points to her left TMJ and neck area around her ear. Since then, she has been noticing trouble with word finding. She thought she laid on her pillow wrong and then wanted to buy a new pillow because it was uncomfortable, she wrote down the word pillow and it came out total. She also wrote some other things down and they all came out different. She has had numbness under her chin for the past 3 weeks. Yesterday evening, she woke up and her right upper extremity was heavy and numb and she remembers thinking why is there someone else's arm in my bed? She then realized it was hers and it seemed . Since last night she is also had some off balance/vertigo symptoms without any hari spinning. Headaches have been off and on. She went to the chiropractor a couple times and had her C1 and C2 adjusted in the past 3 weeks, since the initial episode of discomfort. She denies any loss of consciousness or or involvement in her legs although she admits she has had off-and-on numbness below the left knee for longer than this due to a different medical issue. She denies having a history of migraines. No head injury. No history of seizures or obvious seizure activity. Past Medical History - Allergies and Home Meds Allergies/Adverse Reactions: Allergies latex Allergy (Verified 07/06/19 12:06) Hives meloxicam Allergy (Verified 07/06/19 12:06) Anaphylaxis nickel Allergy (Verified 07/06/19 12:06) Hives esomeprazole [From Nexium] Adverse Reaction (Verified 07/06/19 12:06) Upset Stomach thimerosal Adverse Reaction (Verified 07/06/19 12:06) Angioedema Primary Care Physician: Kiara Justice DO [Primary Care Provider] - Past Medical History: None Lives: Spouse/ Significant Other Smoking Status: Never smoker - Family History Maternal Family History: Reports: No pertinent history Review of Systems General: Denies: Chills, Fever, Sweats Eyes: Reports: Visual changes - bilaterally - This morning prior to coming, she looked down at her contacts and 1 of them did not appear to be there but a short while later it clearly was present. She cannot tell where this visual disturbance was but it seemed like she was having trouble with part of her vis ual field temporarily., - - No eye pain. Denies: Diplopia ENT: Denies: Bilateral ear pain, Rhinorrhea, Sore throat Cardiovascular: Denies: Chest pain, Palpitations Respiratory: Denies: Dyspnea, Cough, Dyspnea on exertion Gastrointestinal: Denies: Abdominal pain, Nausea, Vomiting, Diarrhea, Melena, Hematochezia Genitourinary: Denies: Dysuria, Hematuria, Frequency Musculoskeletal: Reports: Neck pain. Denies: Back pain, Extremity Pain Skin: Denies: Rash, Wounds Neurological: Reports: Headache, Numbness - Beneath the chin and mildly left side of face, - - Speech difficulty. See HPI.. Denies: Weakness STROKE Vital Signs/Narrative: Vital Signs Temp Pulse Resp BP Pulse Ox 07/06/19 12:02 97.8 F 95 18 137/87 H 98 Inital Vital Signs reviewed: Yes - NIHSS Initial 1a Level of Consciousness: 0 1b LOC Questions (Score 2 if aphasic/stupor): 0 1c LOC Commands (Only score 1st attempt): 0 2 Best Gaze (If aphasic, use reflexive mvmts.): 0 3 Visual: 0 4 Facial Palsy: 0 5 Motor Arm Right (UN = amputation/fusion): 0 5 Motor Arm Left: 0 6 Motor Leg Right: 0 6 Motor Leg Left: 0 7 Limb ataxia (Only + if out of proportion): 0 8 Sensory (Aphasia/stupor=0 or 1, coma=2): 1 9 Best Language: 0 10 Dysarthria (mute, coma=2, intubated=UN): 0 11 Extinction and Inattention (only scored if +): 0 Total Score: 1 General: Well nourished, Well developed Head: Normocephalic, Atraumatic Eyes: Perrl, EOMI ENT: Moist mucous membranes, No rhinorrhea Neck: Supple, Nontender, - - no carotid bruits Cardiovascular: Regular rate, Regular rhythm, No murmurs Respiratory: No distress, CTA bilaterally, Chest nontender Abdomen: Soft, Nontender, Nondistended, Normal bowel sounds Back: Nontender, Normal Inspection Extremities: Nontender, No edema. Negative for: Calf Tenderness Skin: Normal color, No rash, No Trauma Neurological: Alert, Oriented x3, Cranial nerves II-XII grossly intact, Normal Strength, Normal Sensation, Normal DTR Psychological: Normal affect, Normal Mood Diagnostic/Tx/Re-eval Impressions Head/Neck CTA 07/06/19 13:27 IMPRESSION: Within normal limits CTA Head and neck with contrast. Electronically Signed: Dory Zepeda MD at 15:15 EST Tel , Service support , Chest X-Ray 07/06/19 13:30 IMPRESSION: No acute cardiopulmonary process. Electronically Signed: Dory Zepeda MD at 14:36 EST Tel , Service support , 07/06/19 13:27 CTA Head AND Neck W/ Contrast [CT] Stat 07/06/19 13:30 Chest 1 View [RAD] Stat Laboratory Results 07/06/19 07/06/19 07/06/19 13:43 13:50 13:50 WBC 5.8 RBC 4.36 Hgb 13.7 Hct 41.8 MCV 95.9 MCH 31.4 MCHC 32.8 RDW Std Deviation 44.0 H RDW Coeff of Gabriel 12.2 Plt Count 215 MPV 10.9 Immature Gran % (Auto) 0.300 Neut % (Auto) 51.2 Lymph % (Auto) 40.2 [place] % (Auto) 6.8 Eos % (Auto) 1.0 Baso % (Auto) 0.5 Absolute Neuts (auto) 2.9 Absolute Lymphs (auto) 2.31 Nucleated RBC % 0 PT 13.1 INR 1.0 APTT 26.1 Sodium Potassium Chloride Carbon Dioxide Anion Gap BUN Creatinine Estim Creat Clear Calc Est GFR (MDRD) Af Amer Est GFR (MDRD) Non-Af BUN/Creatinine Ratio Glucose Calcium Troponin I POC Glucose 78 07/06/19 13:50 WBC RBC Hgb Hct MCV MCH MCHC RDW Std Deviation RDW Coeff of Gabriel Plt Count MPV Immature Gran % (Auto) Neut % (Auto) Lymph % (Auto) [place] % (Auto) Eos % (Auto) Baso % (Auto) Absolute Neuts (auto) Absolute Lymphs (auto) Nucleated RBC % PT INR APTT Sodium 140 Potassium 4.4 Chloride 107 Carbon Dioxide 30.0 Anion Gap 3 L BUN 16 Creatinine 0.80 Estim Creat Clear Calc 74.02 Est GFR (MDRD) Af Amer 97 Est GFR (MDRD) Non-Af 80 BUN/Creatinine Ratio 20.0 Glucose 91 Calcium 9.5 Troponin I < 0.015 POC Glucose - Rhythm Strip Rhythm Strip: Sinus Rhythm Rate: 53 Ectopy: None - EKG Initial EKG Interpretation: Sinus Rhythm, No Acute Injury Pattern - normal EKG - Medical Decision Making Stroke Team Activated: No - currently no neuro deficits Was Patient considered for Endovascular Intervention?: No - neg CTA Initial work-up included CT angiography is negative. Consulted neurology given the symptoms. Differential includes stroke, migraine, subclinical seizure activity, and other neurologic disorders. They agree she should have an MRI with and without contrast in addition to checking folate, B12, TSH levels, and agree with further observation as an inpatient. Discussed with hospitalist. She is outside of TPA windows and had negative CTA so does not require consideration for intervention at this time. We suspect acute stroke is less likely here given the duration of some of the symptoms and negative plain CT and CT angiography. When further discussion her symptoms with the , he states that she has constantly been wanting things to be quiet and turning the lights off in rooms, signifying this may be migraine in nature. ED Disposition - Plan for ED Patient: Disposition: Acute Care Hospital [facility] Diagnosis: Cephalgia, Word finding difficulty Referrals: Kiara Justice DO [Primary Care Provider] -
--- NOTE | 2019-07-06 13:28 | ED.RN ---
PATIENT STATES SINCE June HAS BEEN HAVING EPISODES OF APHASIA AND BEING UNABLE TO COMPREHEND THINGS SHE READS. PATIENT STATES I KNOW THERE ARE WORDS THERE BUT I DON'T KNOW WHAT THEY SAY.
--- NOTE | 2019-07-06 13:30 | RAD_ITS ---
STUDY: X-RAY CHEST REASON FOR EXAM: Female, 53 years old. DIZZINESS TECHNIQUE: Single frontal view of the chest. COMPARISON: June 06, 2018 FINDINGS: There is no new focal consolidation. There is a stable calcified nodule within the left mid lung. Normal size heart. Normal mediastinum and terry. Normal visualized pulmonary arteries. Normal visualized aortic arch and descending thoracic aorta. Normal visualized thoracic spine. Normal visualized ribs, clavicles, and shoulders. There is no demonstrated abnormality of the visualized soft tissue structures of the upper abdomen. RAD/Chest 1 View IMPRESSION: No acute cardiopulmonary process. Electronically Signed: Dory Zepeda MD at 14:36 EST Tel , Service support ,
[2019-07-06] MEDS: 0.9% Normal Saline 1,000 ML 999 ML IV (13:48)
[2019-07-06 13:55] LABS: Bedside Glucose 78 mg/dL (70-110)
[2019-07-06 13:59] LABS: Absolute Lymphocyte Count 2.31 X10^3/uL (0.83-4.51); Absolute Neutrophil Count 2.9 X10^3/uL (2.0-7.7); Basophil# 0.03 X10^3/uL; Basophil% 0.5 % (0-1); Eosinophil# 0.06 X10^3/uL; Hematocrit 41.8 % (37-47); Hemoglobin 13.7 g/dL (12.0-15.0); Lymphocyte # 2.31 X10^3/ul (4.0); Lymphocyte % 40.2 % (19-41); Mean Corp Hgb Conc 32.8 g/dL (32-36); Mean Corpuscular Hgb 31.4 pg (27.0-32.0); Mean Corpuscular Volume 95.9 fL (81-99); Mean Platelet Vol. 10.9 fl (6.2-12.0); Monocyte# 0.39 X10^3/uL; Monocyte% 6.8 % (0-10); NRBC Flagged by Analyzer 0 % (0-5); Neutrophil # 2.94 X10^3/uL (2.7-7.7); Neutrophil % 51.2 % (47-70); Platelet Count 215 K/mm3 (150-450); RBC Distribution Width CV 12.2 % (11.6-14.6); Red Blood Count 4.36 M/mm3 (4.2-5.4); White Blood Count 5.8 K/mm3 (4.4-11.0)
[2019-07-06 14:09] LABS: Prothrombin Time (Protime)PT. 13.1 SECONDS (11.7-14.9)
[2019-07-06 14:10] LABS: Partial Thromboplast Time 26.1 Seconds (24.1-36.2)
[2019-07-06 14:16] LABS: Anion Gap 3 (5-15); BUN 16 mg/dL (7-18); Calcium,Total 9.5 mg/dL (8.5-10.1); Chloride 107 mmol/L (98-107); EST Glomerular Filtration Rate 80 mL/min (>60); Est Glom Filt Rate - Afr Amer 97 mL/min (>60); Estimated Creatinine Clearance 74.02 ml/min; Glucose 91 mg/dL (74-106); Potassium 4.4 mmol/L (3.5-5.1); Sodium Level 140 mmol/L (136-145)
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
--- NOTE | 2019-07-06 17:28 | NURSING ---
124 OBS HEADACHE, INTERMITTENT APSHASIA
--- NOTE | 2019-07-06 17:52 | MRI_ITS ---
STUDY: MRI CERVICAL SPINE WITH AND WITHOUT CONTRAST REASON FOR EXAM: Female, 53 years old. Dysarthria, H/A neck pain, left arm weakness TECHNIQUE: Standardized fat and water weighted pulse sequences were obtained in the sagittal and axial following administration of Pt received 16ml Dotarem via IV. COMPARISON: None FINDINGS: Normal foramen magnum and brainstem-cervical cord junction. Normal craniovertebral junction. Normal anterior atlantoaxial articulation. Normal odontoid process. Normal cervical lordosis. Normal vertebral bodies and posterior osseous elements. C2-3: Normal endplates. Normal disc height, signal and morphology. Normal central canal and intervertebral neural foramina. C3-4: Normal endplates. Normal disc height, signal and morphology. Normal central canal and intervertebral neural foramina. C4-5: Mild endplate spurring.. Normal disc height, signal and morphology. Normal central canal and intervertebral neural foramina. C5-6: Narrowed disc space and endplate spurring. Mild bulging disc osteophyte complex.. Mild narrowing of the central canal. Moderate right neuroforaminal stenosis and more severe narrowing on the left secondary to disc and bony hypertrophy C6-7: Narrowed disc space and mild bulging disc osteophyte complex. Mild narrowing of the central canal. Moderate right neuroforaminal stenosis and moderate to severe narrowing on the left secondary to disc and bony hypertrophy. C7-T1: Normal endplates. Normal disc height, signal and morphology. Normal central canal and intervertebral neural foramina. Normal cervical cord. Normal visualized soft tissue structures. No enhancing lesions are observed following contrast injection MRI/Spine Cervical W/WO Contrast IMPRESSION: No evidence for acute fracture or other significant bony pathology. Mild spondylosis most severe at C5-6 and C6-7. Spinal stenosis at C5-6 and C6-7 greater on the left secondary to disc disease and bony hypertrophy Electronically Signed: Dru Chance MD at 21:14 EST , Service support ,
--- NOTE | 2019-07-06 17:52 | MRI_ITS ---
We are attempting to reach an attending provider to discuss findings. An addendum with communication details will be sent when the communication is complete. STUDY: MRI BRAIN WITH AND WITHOUT CONTRAST REASON FOR EXAM: Female, 53 years old. H/A, dysarthria,dizziness TECHNIQUE: Standardized multiplanar fat and water weighted pulse sequences were obtained. Pt received 16ml Dotarem via IV was administered for the contrast portion of the examination. COMPARISON: MRI of the brain May 09, 2018 FINDINGS: Normal size of the ventricles and extra-axial spaces for the patient''s age. There is very subtle gliosis in the left medial temporal lobe and frontal temporal region demonstrating restricted diffusion consistent with acute ischemic changes.. Normal bilateral basal ganglia. Normal thalami. There is no extra-axial fluid accumulation. Normal flow voids within the major intracranial circulation suggesting patency by spin echo criteria. Normal venous enhancement. There is no enhancing intra-axial or extra-axial abnormality. Normal sella turcica, pituitary gland, infundibular stalk, optic chiasm and hypothalamus. Normal tectal plate and pineal gland. Normal midbrain, sandra and medulla. Normal cerebellum. Normal basal cisterns. Normal bilateral temporal bones. Normal bilateral internal auditory canals. No demonstrated orbital abnormality, within the constraints of a routine brain study. Small mucous retention cyst in left maxillary sinus and minor mucosal thickening of the ethmoid air cells with moderate mucosal thickening left sphenoid sinus. Normal calvarium and skull base. Normal visualized soft tissue structures. Normal visualized upper cervical spine. MRI/Brain W/WO Contrast IMPRESSION: Findings consistent with mild focal acute ischemic changes in the medial left temporal lobe and left frontal temporal region. Electronically Signed: Dru Chance MD at 20:42 EST , Service support ,
[2019-07-06] MEDS: Ketorolac 15 MG/ML Vial IV ×2 (18:29→22:54)
[2019-07-06] MEDS: 0.9% Normal Saline 1,000 ML 125 ML IV (18:29)
[2019-07-06 18:35] LABS: Vitamin B12 726 pg/mL (211-911)
[2019-07-06 19:11] LABS: Magnesium 2.3 mg/dL (1.6-2.6); Thyroid Stim Hormone (TSH) 1.51 uIU/mL (0.358-3.74)
[2019-07-06] MEDS: Atorvastatin Calcium 80 MG Tablet PO (22:54)
[2019-07-06] MEDS: Clopidogrel Bisulfate 75 MG Tablet PO (22:54)
[2019-07-06] MEDS: Acyclovir 200 MG Capsule 400 MG PO (22:54)
[2019-07-06] MEDS: Aspirin 81 MG TAB.CHEW PO (22:54)
--- NOTE | 2019-07-06 23:14 | PCM.PN.BLA ---
Progress Note Discussed MRI results of findings consistent with mild focal acute ischemic changes in the medial left temporal lobe and left frontal region of patient. Will start patient on aspirin Plavix and high intensity statin. STROKE Vital Signs/Narrative: Vital Signs Temp Pulse Resp BP Pulse Ox 07/06/19 20:39 98.3 F 78 16 116/80 100 07/06/19 20:32 74
[2019-07-07] VITALS (11 sets, daily range): BP systolic 115–122; BP diastolic 63–83; PULSE 70–99; RESP 12–18; TEMP 36.6–36.8; O2SAT 94–98; BMI 29.5
--- NOTE | 2019-07-07 03:55 | NURSING ---
entered room to check on patient, patient awake and tearful about new diagnosis of stroke, provided emotional support and prayer with patient. Provided handout and discussion with patient regarding stroke, therapy, and new medications. Patient in agreeance with POC, will cont to monitor.
[2019-07-07] MEDS: Ketorolac 15 MG/ML Vial IV (05:54)
[2019-07-07] MEDS: 0.9% Normal Saline 1,000 ML 125 ML IV ×3 (06:06→21:00)
[2019-07-07 06:55] LABS: Absolute Lymphocyte Count 3.41 X10^3/uL (0.83-4.51); Basophil# 0.03 X10^3/uL; Basophil% 0.5 % (0-1); Eosinophil# 0.11 X10^3/uL; Eosinophils% 1.8 % (0-5); Hematocrit 36.5 % (37-47); Hemoglobin 11.8 g/dL (12.0-15.0); Lymphocyte # 3.41 X10^3/ul (4.0); Lymphocyte % 56.6 % (19-41); Mean Corp Hgb Conc 32.3 g/dL (32-36); Mean Corpuscular Hgb 31.1 pg (27.0-32.0); Mean Corpuscular Volume 96.1 fL (81-99); Mean Platelet Vol. 10.7 fl (6.2-12.0); Monocyte# 0.45 X10^3/uL; Monocyte% 7.5 % (0-10); NRBC Flagged by Analyzer 0 % (0-5); Neutrophil # 2.02 X10^3/uL (2.7-7.7); Neutrophil % 33.4 % (47-70); Platelet Count 189 K/mm3 (150-450); RBC Distribution Width CV 12.5 % (11.6-14.6); RBC Distribution Width SD 43.8 fl (35.1-43.9)
[2019-07-07 07:40] LABS: ALB/GLOB Ratio 1.1 RATIO (0.9-2.4); AST(SGOT) 19 U/L (15-37); Alanine Aminotransfer ALT/SGPT 36 U/L (13-56); Albumin, Serum 3.1 g/dL (3.2-5.0); Alkaline Phosphatase 77 U/L (45-117); Anion Gap 6 (5-15); BUN 13 mg/dL (7-18); BUN/Creat Ratio 18.6 RATIO (10-20); Calcium,Total 8.1 mg/dL (8.5-10.1); Chloride 110 mmol/L (98-107); Cholesterol 250 mg/dL (200); EST Glomerular Filtration Rate 93 mL/min (>60); Est Glom Filt Rate - Afr Amer 113 mL/min (>60); Globulin 2.9 g/dL (2.2-4.2); Glucose 88 mg/dL (74-106); High Density Lipoprotein 65 mg/dL; Potassium 4.1 mmol/L (3.5-5.1); Sodium Level 142 mmol/L (136-145); Triglycerides 68 mg/dL; Very Low Density Lipoprotein 14 mg/dL (5-40)
--- NOTE | 2019-07-07 08:41 | ECHOD_ITS ---
Reason For Study: TIA/CVA Procedure This was a 2D Doppler, Color Flow transthoracic echocardiogram. Exam performed portable in patient room. Left Ventricle Normal LV size. Left ventricular systolic function is normal. The estimated ejection fraction is 60 %. No regional wall motion abnormalities noted. Right Ventricle Normal RV size. Normal systolic function. Atria Normal left atrium. Normal right atrium. Bubble contrast study negative for right to left interatrial shunt. Mitral Valve Normal mitral valve. Tricuspid Valve Normal tricuspid valve. Aortic Valve Normal aortic valve. Pulmonic Valve Normal pulmonic valve. Great Vessels Normal aortic root. The pulmonary artery is normal size. Normal inferior vena cava. Pericardium/Pleural No pericardial effusion. Medication Performed a rapid injection of agitated mix of 9 cc saline and 1cc air to assess for atrial septal defect. MMode/2D Measurements & Calculations LVIDd: 4.5 cm IVSd: 1.0 cm Ao root diam: 2.8 cm LVIDs: 3.1 cm LVPWd: 0.92 cm RVDd: 3.1 cm FS: 30.4 % LAV(MOD-bp): 37.3 ml LVAd ap4: 25.8 cm2 SV(MOD-sp4): 44.5 ml LAV(MOD-bp) Indexed: 19.9 ml/m2 EDV(MOD-sp4): 74.6 ml LAV(MOD-sp2): 45.3 ml EDV(sp4-el): 76.6 ml LAV(MOD-sp4): 30.6 ml LVAs ap4: 14.6 cm2 ESV(MOD-sp4): 30.2 ml ESV(sp4-el): 29.7 ml EF(MOD-sp4): 59.6 % EF(sp4-el): 61.3 % SV(sp4-el): 47.0 ml LA A4 area: 13.6 cm2 LA dimension(2D): 3.2 cm RA A4 area: 13.1 cm2 Doppler Measurements & Calculations MV E max klaus: 91.6 cm/sec Lat Peak E' Klaus: 11.2 cm/sec Med Peak E' Klaus: 13.7 cm/sec MV A max klaus: 80.2 cm/sec E/E' lat: 8.2 E/E' med: 6.7 MV E/A: 1.1 Ao V2 max: 126.7 cm/sec LV V1 max: 107.0 cm/sec PA V2 max: 82.8 cm/sec Ao max P.4 mmHg LV V1 max P.6 mmHg Ao V2 mean: 93.3 cm/sec Ao mean P.7 mmHg Ao V2 VTI: 28.8 cm TR max klaus: 196.8 cm/sec TR max P.5 mmHg Interpretation Summary Normal LV size. Left ventricular systolic function is normal. The estimated ejection fraction is 60 %. Bubble contrast study negative for right to left interatrial shunt. Structurally normal valves. Ordering Physician: Jacinta Leary Referring Physician: Kiara Justice Performed By: Roberta Chambers, AGNIESZKA, RVT
[2019-07-07] MEDS: Enoxaparin 40 MG/0.4 ML Syringe SC (09:01)
[2019-07-07] MEDS: Acyclovir 200 MG Capsule 400 MG PO ×2 (09:01→21:01)
[2019-07-07] MEDS: Clopidogrel Bisulfate 75 MG Tablet PO (09:05)
[2019-07-07] MEDS: Aspirin 81 MG TAB.CHEW PO (09:05)
--- NOTE | 2019-07-07 13:15 | PN_ITS ---
<Jacinta Leary - Last Filed: 07/07/19 13:30> Patient Problems: Active and Suspected Problems Cephalgia (Acute) Word finding difficulty (Acute) Subjective: Patient seen and examined. Family at bedside. MRI demonstrating acute left temporal and left frontal infarcts. Discussed findings and plan of care with patient and family. Patient denies new neurologic symptoms overnight. - Physical Exam Vitals/I&O's: Vital Signs Temp Pulse Resp BP Pulse Ox 97.8 F 70 12 118/81 H 95 07/07/19 13:00 07/07/19 13:00 07/07/19 13:00 07/07/19 13:00 07/07/19 13:00 Oxygen Delivery Method Room Air Weight: 179 lb 12.8 oz Body Mass Index (BMI) 29.5 Finger Stick Blood Glucose 78 Intake and Output for Last 24 Hours 07/05/19 07/06/19 07/07/19 23:59 23:59 23:59 Intake Total 1268.33 / 1268.33 2492.92 / 2492.92 Balance 1268.33 / 1268.33 2492.92 / 2492.92 General: Alert, Oriented x3, Cooperative HEENT: Atraumatic, PERRLA, EOMI, Normocephalic Neck: Supple, No JVD, Negative Carotid Bruits Lungs: Clear to auscultation, Normal air movement Cardiovascular: Regular rate, Regular Rhythm, Normal S1, Normal S2, No murmurs Abdomen: Bowel Sounds Present, Soft, Non Tender, Non-Distended Extremities: No clubbing, No cyanosis, No edema, Capillary Refill Less than 3 Se conds Skin: No rashes, No breakdown Musculoskeletal: No Tenderness to Palpation of Joints or Extremities Neurological: Cranial nerves II-XII grossly intact, Neuro grossly intact Psych/Mental Status: Normal Affect, Appropriate Laboratory Results 07/06/19 13:43: POC Glucose 78 07/06/19 13:50: WBC 5.8, RBC 4.36, Hgb 13.7, Hct 41.8, MCV 95.9, MCH 31.4, MCHC 32.8, RDW Std Deviation 44.0 H, RDW Coeff of Gabriel 12.2, Plt Count 215, MPV 10.9, Immature Gran % (Auto) 0.300, Neut % (Auto) 51.2, Lymph % (Auto) 40.2, [place] % (Auto) 6.8, Eos % (Auto) 1.0, Baso % (Auto) 0.5, Absolute Neuts (auto) 2.9, Absolute Lymphs (auto) 2.31, Nucleated RBC % 0 07/06/19 13:50: PT 13.1, INR 1.0, APTT 26.1 07/06/19 13:50: Sodium 140, Potassium 4.4, Chloride 107, Carbon Dioxide 30.0, A nion Gap 3 L, BUN 16, Creatinine 0.80, Estim Creat Clear Calc 74.02, Est GFR (MDRD) Af Amer 97, Est GFR (MDRD) Non-Af 80, BUN/Creatinine Ratio 20.0, Glucose 91, Calcium 9.5, Troponin I < 0.015 07/06/19 13:50: Magnesium 2.3, Folate 52.20, TSH 1.51 07/06/19 13:50: Vitamin B12 726 07/07/19 06:27: WBC 6.0, RBC 3.80 L, Hgb 11.8 L, Hct 36.5 L, MCV 96.1, MCH 31.1, MCHC 32.3, RDW Std Deviation 43.8, RDW Coeff of Gabriel 12.5, Plt Count 189, MPV 1 0.7, Immature Gran % (Auto) 0.200, Neut % (Auto) 33.4 L, Lymph % (Auto) 56.6 H, [place] % (Auto) 7.5, Eos % (Auto) 1.8, Baso % (Auto) 0.5, Absolute Neuts (auto) 2.0, Absolute Lymphs (auto) 3.41, Nucleated RBC % 0 07/07/19 06:27: Sodium 142, Potassium 4.1, Chloride 110 H, Carbon Dioxide 26.0, Anion Gap 6, BUN 13, Creatinine 0.70, Estim Creat Clear Calc 84.60, Est GFR (MDRD) Af Amer 113, Est GFR (MDRD) Non-Af 93, BUN/Creatinine Ratio 18.6, Glucose 88, Calcium 8.1 L, Total Bilirubin 0.50, AST 19, ALT 36, Alkaline Phosphatase 77, Total Protein 6.0 L, Albumin 3.1 L, Globulin 2.9, Albumin/Globulin Ratio 1.1, Triglycerides 68, Cholesterol 250 H, LDL Cholesterol 171 H, VLDL Cholesterol 14, HDL Cholesterol 65 Current Medications Acetaminophen (Tylenol) 650 mg PO Q6H PRN PRN PRN Reason: Non-cardiac pain (-04/12) Acyclovir (Zovirax) 400 mg PO BID [facility] Last Admin: 07/07/19 09:01 Dose: 400 mg Documented by: Al Hydroxide/Mg Hydroxide (Mylanta Ii) 15 - 30 ml PO Q4H PRN PRN PRN Reason: INDIGESTION Albuterol Sulfate (Ventolin Aerosols) 2.5 mg INHALATION Q2H PRN PRN PRN Reason: dyspnea, wheezing Aspirin (Aspirin, Baby) 81 mg PO DAILY@0800 [facility] Last Admin: 07/07/19 09:05 Dose: 81 mg Documented by: Atorvastatin Calcium (Lipitor) 80 mg PO QHS [facility] Last Admin: 07/06/19 22:54 Dose: 80 mg Documented by: Clopidogrel Bisulfate (Plavix) 75 mg PO DAILY [facility] Last Admin: 07/07/19 09:05 Dose: 75 mg Documented by: Enoxaparin Sodium (Lovenox) 40 mg SC DAILY [facility] Last Admin: 07/07/19 09:01 Dose: 40 mg Documented by: Glucagon () 1 mg IM .X1 PRN PRN Reason: Hypoglycemia Guaifenesin (Robitussin) 20 ml PO Q4H PRN PRN PRN Reason: COUGH Hydralazine HCl (Apresoline Iv) 10 mg IV Q4H PRN PRN PRN Reason: SBP > 160 Sodium Chloride () 1,000 mls @ 125 mls/hr IV .Q8H [facility] Last Admin: 07/07/19 13:15 Dose: 125 mls/hr Documented by: Dextrose (Dextrose 10%-Water) 250 mls @ 999 mls/hr IV .Q16M PRN; Protocol PRN Reason: HYPOGLYCEMIA Magnesium Hydroxide (Milk Of Magnesia) 30 ml PO DAILY PRN PRN Reason: Constipation Melatonin (Melatonin) 3 mg PO QHS PRN PRN PRN Reason: INSOMNIA Ondansetron HCl (Zofran) 4 mg IV Q8H PRN PRN PRN Reason: NAUSEA/VOMITING Sodium Chloride () 10 - 40 ml IV UD PRN PRN Reason: SALINE FLUSH Throat Lozenges (Cepacol Sore Throat Lozenge) 1 lozenge MUCOUS MEM Q2H PRN PRN PRN Reason: Sore Throat/Cough Medical Necessity - Tobacco Use Smoking Status: Never smoker Tobacco Use: Non-smoker Assessment/Plan All Active Problems Paresthesia of left arm (Acute) Lt facial numbness (Acute) Cephalgia (Acute) Word finding difficulty (Acute) 1. Acute stroke-MRI demonstrates small acute ischemia left temporal and posterior frontal lobe. CTA of head and neck on admission normal. Echocardiogram demonstrates an EF of 60%, bubble contrast study negative for right to left intra-atrial shunt. Follow-up tele-neurology consult placed given MRI findings. Neurology recommending dual antiplatelet therapy with aspirin and Plavix for 90 days followed by aspirin alone. Continue high-dose statin. Additionally recommending TYLOR, hypercoagulable work-up and event recorder at discharge. Also of concern is patient's numbness of chin area. Recommend follow-up as outpatient with neurology as well as PCP as this may represent other underlying concerns such as malignancy per neurology. PT/OT/ST. 2. Cephalgia-improved. Do not feel this is related to #1. Continue as needed Tylenol. 3. Chronic neck pain/cervical radiculopathy-MRI of cervical spine shows mild spondylosis most severe at C5-C6 and C6-C7. Spinal stenosis at C5-C6 and C6-C7 greater on the left. Continue outpatient follow-up. Recommend referral to spine surgeon as outpatient. 4. Thyroid nodules-on iodine supplementation. TSH within normal limits. 5. Hyperlipidemia-initiated on high-dose statin. DVT prophylaxis-Lovenox subcu This patient was seen by CAPRI Li under the supervision of Dr. Berumen. <Mando Berumen - Last Filed: 07/07/19 13:51> - Physical Exam Vitals/I&O's: Vital Signs Temp Pulse Resp BP Pulse Ox 97.8 F 70 12 118/81 H 95 07/07/19 13:00 07/07/19 13:00 07/07/19 13:00 07/07/19 13:00 07/07/19 13:00 Oxygen Delivery Method Room Air Weight: 81.556 kg Body Mass Index (BMI) 29.5 Finger Stick Blood Glucose 78 Intake and Output for Last 24 Hours 07/05/19 07/06/19 07/07/19 23:59 23:59 23:59 Intake Total 1268.33 / 1268.33 2492.92 / 2492.92 Balance 1268.33 / 1268.33 2492.92 / 2492.92 Laboratory Results 07/06/19 13:43: POC Glucose 78 07/06/19 13:50: WBC 5.8, RBC 4.36, Hgb 13.7, Hct 41.8, MCV 95.9, MCH 31.4, MCHC 32.8, RDW Std Deviation 44.0 H, RDW Coeff of Gabriel 12.2, Plt Count 215, MPV 10.9, Immature Gran % (Auto) 0.300, Neut % (Auto) 51.2, Lymph % (Auto) 40.2, [place] % (Auto) 6.8, Eos % (Auto) 1.0, Baso % (Auto) 0.5, Absolute Neuts (auto) 2.9, Absolute Lymphs (auto) 2.31, Nucleated RBC % 0 07/06/19 13:50: PT 13.1, INR 1.0, APTT 26.1 07/06/19 13:50: Sodium 140, Potassium 4.4, Chloride 107, Carbon Dioxide 30.0, Anion Gap 3 L, BUN 16, Creatinine 0.80, Estim Creat Clear Calc 74.02, Est GFR (MDRD) Af Amer 97, Est GFR (MDRD) Non-Af 80, BUN/Creatinine Ratio 20.0, Glucose 91, Calcium 9.5, Troponin I < 0.015 07/06/19 13:50: Magnesium 2.3, Folate 52.20, TSH 1.51 07/06/19 13:50: Vitamin B12 726 07/07/19 06:27: WBC 6.0, RBC 3.80 L, Hgb 11.8 L, Hct 36.5 L, MCV 96.1, MCH 31.1, MCHC 32.3, RDW Std Deviation 43.8, RDW Coeff of Gabriel 12.5, Plt Count 189, MPV 10.7, Immature Gran % (Auto) 0.200, Neut % (Auto) 33.4 L, Lymph % (Auto) 56.6 H, [place] % (Auto) 7.5, Eos % (Auto) 1.8, Baso % (Auto) 0.5, Absolute Neuts (auto) 2.0, Absolute Lymphs (auto) 3.41, Nucleated RBC % 0 07/07/19 06:27: Sodium 142, Potassium 4.1, Chloride 110 H, Carbon Dioxide 26.0, Anion Gap 6, BUN 13, Creatinine 0.70, Estim Creat Clear Calc 84.60, Est GFR (MDRD) Af Amer 113, Est GFR (MDRD) Non-Af 93, BUN/Creatinine Ratio 18.6, Glucose 88, Calcium 8.1 L, Total Bilirubin 0.50, AST 19, ALT 36, Alkaline Phosphatase 77, Total Protein 6.0 L, Albumin 3.1 L, Globulin 2.9, Albumin/Globulin Ratio 1.1, Triglycerides 68, Cholesterol 250 H, LDL Cholesterol 171 H, VLDL Cholesterol 14, HDL Cholesterol 65 Current Medications Acetaminophen (Tylenol) 650 mg PO Q6H PRN PRN PRN Reason: Non-cardiac pain (-04/12) Last Admin: 07/07/19 13:17 Dose: 650 mg Documented by: Acyclovir (Zovirax) 400 mg PO BID [facility] Last Admin: 07/07/19 09:01 Dose: 400 mg Documented by: Al Hydroxide/Mg Hydroxide (Mylanta Ii) 15 - 30 ml PO Q4H PRN PRN PRN Reason: INDIGESTION Albuterol Sulfate (Ventolin Aerosols) 2.5 mg INHALATION Q2H PRN PRN PRN Reason: dyspnea, wheezing Aspirin (Aspirin, Baby) 81 mg PO DAILY@0800 [facility] Last Admin: 07/07/19 09:05 Dose: 81 mg Documented by: Atorvastatin Calcium (Lipitor) 80 mg PO QHS [facility] Last Admin: 07/06/19 22:54 Dose: 80 mg Documented by: Clopidogrel Bisulfate (Plavix) 75 mg PO DAILY [facility] Last Admin: 07/07/19 09:05 Dose: 75 mg Documented by: Enoxaparin Sodium (Lovenox) 40 mg SC DAILY [facility] Last Admin: 07/07/19 09:01 Dose: 40 mg Documented by: Glucagon () 1 mg IM .X1 PRN PRN Reason: Hypoglycemia Guaifenesin (Robitussin) 20 ml PO Q4H PRN PRN PRN Reason: COUGH Hydralazine HCl (Apresoline Iv) 10 mg IV Q4H PRN PRN PRN Reason: SBP > 160 Sodium Chloride () 1,000 mls @ 125 mls/hr IV .Q8H [facility] Last Admin: 07/07/19 13:15 Dose: 125 mls/hr Documented by: Dextrose (Dextrose 10%-Water) 250 mls @ 999 mls/hr IV .Q16M PRN; Protocol PRN Reason: HYPOGLYCEMIA Magnesium Hydroxide (Milk Of Magnesia) 30 ml PO DAILY PRN PRN Reason: Constipation Melatonin (Melatonin) 3 mg PO QHS PRN PRN PRN Reason: INSOMNIA Ondansetron HCl (Zofran) 4 mg IV Q8H PRN PRN PRN Reason: NAUSEA/VOMITING Sodium Chloride () 10 - 40 ml IV UD PRN PRN Reason: SALINE FLUSH Throat Lozenges (Cepacol Sore Throat Lozenge) 1 lozenge MUCOUS MEM Q2H PRN PRN PRN Reason: Sore Throat/Cough Assessment/Plan This patient was seen in conjunction with CAPRI Li . I have i ndependently interviewed and examined the patient and reviewed pertinent historical, laboratory, and other data. Please refer to CAPRI Li note for details of this patient's presentation, findings, and recommendations. I have reviewed CAPRI Li note and concur with documented findings. In brief, patient is a 53-year-old admitted with neck pain, subjective right up per extremity weakness as well as speech difficulty. MRI obtained demonstrated Findings consistent with mild focal acute ischemic changes in the medial left temporal lobe and left frontal temporal region admitted to monitored bed where patient is currently undergoing evaluation Physical Examination: GENERAL: cooperative HEENT: Atraumatic; EYES; Anicteric, Normal Conjunctiva NECK; supple, normal thyroid, RESPIRATORY: Diminished to auscultation CARDIOVASCULAR: Regular S1 S2, GI: soft, normoactive bowel sounds, MUSCULOSKELETAL: no muscle waisting NEURO: Awake; no lateralizing signs. SKIN: No Rash PSYCH; Flat affect Assessment: 1. Acute ischemic CVA 2. Spinal stenosis involving the cervical spine 3. Dyslipidemia 4. Thyroid nodules Recommendations: 1. I have discussed the results of my overview and impressions with the patient 2. Options for management were reviewed Clinical Impression(s) from Imaging Studies Head/Neck CTA 07/06/19 13:27 IMPRESSION: Within normal limits CTA Head and neck with contrast. Electronically Signed: Dory Zepeda MD at 15:15 EST Tel , Service support , Chest X-Ray 07/06/19 13:30 IMPRESSION: No acute cardiopulmonary process. Electronically Signed: Dory Zepeda MD at 14:36 EST Tel , Service support , Brain MRI 07/06/19 17:52 IMPRESSION: Findings consistent with mild focal acute ischemic changes in the medial left temporal lobe and left frontal temporal region. Electronically Signed: Dru Chance MD at 20:42 EST , Service support , ADDENDUM: 07/06/192055 IMPRESSION: Findings consistent with mild focal acute ischemic changes in the medial left temporal lobe and left frontal temporal region. N.B. : The above information has been verbally conveyed by Dru Chance MD to [employer] passenger train- MINI Lopez, on 07/06/2019 20:49:05 (ET). Electronically Signed: Dru Chance MD at 20:42 EST , Service support , Cervical Spine MRI 07/06/19 17:52 IMPRESSION: No evidence for acute fracture or other significant bony pathology. Mild spondylosis most severe at C5-6 and C6-7. Spinal stenosis at C5-6 and C6-7 greater on the left secondary to disc disease and bony hypertrophy Electronically Signed: Dru Chance MD at 21:14 EST , Service support , Code Visit Inpatient E&M: 65191 Subs Hosp L3
[2019-07-07] MEDS: Acetaminophen 325 MG Tablet 650 MG PO ×2 (13:17→20:58)
--- NOTE | 2019-07-07 13:30 | ECHOTEE_ITS ---
Reason For Study: TIA/ CVA Medication TYLOR probe 6VT-D (SN [id number]) passed without difficulty. No complications were noted. Cetacaine Topical [place] given X3 orally. Versed 1.0 mg given slow IVP. Fentanyl 50 mcg given slow IVP. Performed a rapid injection of agitated mix of 9 cc saline and 1cc air to assess for atrial septal defect. Left Ventricle Normal LV size. Left ventricular systolic function is normal. The estimated ejection fraction is 60 %. No regional wall motion abnormalities noted. Right Ventricle Normal RV size. Normal systolic function. Atria Patent foramen ovale. Normal left atrium. No thrombus is detected in the left atrial appendage. Normal right atrium. Mitral Valve Normal mitral valve. Trivial eccentric mitral valve insufficiency. Tricuspid Valve Normal tricuspid valve. Aortic Valve Normal aortic valve. Trisinus/trileaflet aortic valve. Pulmonic Valve Normal pulmonic valve. Vessels Normal aortic root. Pericardium No pericardial effusion. Interpretation Summary No cardiac source of emboli noted. Normal LV size. Left ventricular systolic function is normal. The estimated ejection fraction is 60 %. Patent foramen ovale. Ordering Physician: Jacinta Leary Referring Physician: JUSTIN ROSALES Performed By: Bonnie Brody, AGNIESZKA, RVT
[2019-07-07 16:12] LABS: Amphetamine Urine VISTA NEGATIVE (<1000 ng/mL); Barbiturate Urine VISTA NEGATIVE (< 200 ng/mL); Benzodiazepine Urine VISTA NEGATIVE (< 200 ng/mL); Cocaine Urine VISTA NEGATIVE (< 300 ng/mL); Ecstacy Urine VISTA NEGATIVE (< 500 ng/mL); Methadone Urine VISTA NEGATIVE (< 300 ng/mL); PCP Urine VISTA NEGATIVE (< 25 ng/mL); THC Urine VISTA NEGATIVE (< 50 ng/mL); Vista UDS pH Range 6
--- NOTE | 2019-07-07 18:44 | CASEMGMT ---
Social Work Consult: Positive for Stroke, completing PHQ-9 Informant: Self Referral Met with patient in room. Introduced self as well as delinquency prevention social worker role. Broached topic of emotions and how a stroke can affect mood and change a person's life. 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 Patient noted to have difficulty finding words at times but able to understand and communicate with this delinquency prevention social worker. Patient stating to have support from family and friends. Patient stating to have been tearful yesterday but to now have hope. Patient stating to have started to be hopeful after speaking with the neurologist. Plan is for patient to return to the community with continued outpatient speech therapy. Patient unsure where patient would like to go for speech therapy services. Spoke with patient for some time offering verbal and emotional support. Patient presenting with a positive affect. Patient with a PHQ-9 score of 08/30. Encouraged patient to continue to be open with family and friends. Patient stating main frustration is speech and difficulty finding works at times. Mustapha Brannon MSW, LIZZETH
[2019-07-07] MEDS: Atorvastatin Calcium 80 MG Tablet PO (21:00)
[2019-07-08] VITALS (9 sets, daily range): BP systolic 97–120; BP diastolic 63–75; PULSE 60–86; RESP 16–18; TEMP 36.6–37.1; O2SAT 95–98; BMI 29.5
[2019-07-08] MEDS: 0.9% Normal Saline 1,000 ML 125 ML IV ×3 (04:49→21:40)
[2019-07-08] MEDS: Acyclovir 200 MG Capsule 400 MG PO ×2 (09:09→21:41)
[2019-07-08] MEDS: Clopidogrel Bisulfate 75 MG Tablet PO (09:09)
[2019-07-08] MEDS: Aspirin 81 MG TAB.CHEW PO (09:10)
[2019-07-08] MEDS: Enoxaparin 40 MG/0.4 ML Syringe SC (09:10)
--- NOTE | 2019-07-08 11:37 | PCM.PROGNOTE ---
<Jacinta Leary - Last Filed: 07/08/19 11:41> Patient Problems: Active and Suspected Problems Cephalgia (Acute) Word finding difficulty (Acute) Subjective: Patient seen and examined. Reports she feels overall improved and has better mental clarity. Requesting referral to [facility] neurology at discharge for outpatient follow-up. Plan for TYLOR in a.m. - Physical Exam Vitals/I&O's: Vital Signs Temp Pulse Resp BP Pulse Ox 97.8 F 60 16 120/75 96 07/08/19 09:00 07/08/19 09:00 07/08/19 09:00 07/08/19 09:00 07/08/19 09:00 Oxygen Delivery Method Room Air Weight: 179 lb 12.8 oz Body Mass Index (BMI) 29.5 Finger Stick Blood Glucose 78 Intake and Output for Last 24 Hours 07/06/19 07/07/19 07/08/19 23:59 23:59 23:59 Intake Total 1268.33 / 1268.33 3821.67 / 4061.67 1217.08 / 1217.08 Balance 1268.33 / 1268.33 3821.67 / 4061.67 1217.08 / 1217.08 General: Alert, Oriented x3, Cooperative HEENT: Atraumatic, PERRLA, EOMI, Normocephalic Neck: Supple, No JVD, Negative Carotid Bruits Lungs: Clear to auscultation, Normal air movement Cardiovascular: Regular rate, Regular Rhythm, Normal S1, Normal S2, No murmurs Abdomen: Bowel Sounds Present, Soft, Non Tender, Non-Distended Extremities: No clubbing, No cyanosis, No edema, Capillary Refill Less than 3 Seconds Skin: No rashes, No breakdown Musculoskeletal: No Tenderness to Palpation of Joints or Extremities Neurological: Cranial nerves II-XII grossly intact, Neuro grossly intact Psych/Mental Status: Normal Affect, Appropriate Laboratory Results 07/07/19 15:30: Urine Opiates Screen NEGATIVE, Urine Methadone Screen NEGATIVE, Ur Barbiturates Screen NEGATIVE, Ur Phencyclidine Scrn NEGATIVE, Ur Amphetamines Screen NEGATIVE, U Methamphetamin-MDMA NEGATIVE, U Benzodiazepines Scrn NEGATIVE, Urine Cocaine Screen NEGATIVE, U Cannabinoids Screen NEGATIVE, Ur Drug Screen Comment 07/07/19 16:45: Protein C Antigen Pending, Functional Protein C Pending, Prot C Funct Activity Pending, Antithrombin III Ag Pending, Func Antithrombin III Pending, Factor V Leiden Mutat Pending, Beta-2-GPI IgG Ab Pending, Beta-2-GPI IgA Ab Pending, Beta-2-GPI IgM Ab Pending, Anti-Cardiolipin IgG Ab Pending, Anti-Cardiolipin IgM Ab Pending, Factor II DNA Analysis Pending Current Medications Acetaminophen (Tylenol) 650 mg PO Q6H PRN PRN PRN Reason: Non-cardiac pain (-04/12) Last Admin: 07/07/19 20:58 Dose: 650 mg Documented by: Acyclovir (Zovirax) 400 mg PO BID [facility] Last Admin: 07/08/19 09:09 Dose: 400 mg Documented by: Al Hydroxide/Mg Hydroxide (Mylanta Ii) 15 - 30 ml PO Q4H PRN PRN PRN Reason: INDIGESTION Albuterol Sulfate (Ventolin Aerosols) 2.5 mg INHALATION Q2H PRN PRN PRN Reason: dyspnea, wheezing Aspirin (Aspirin, Baby) 81 mg PO DAILY@0800 [facility] Last Admin: 07/08/19 09:10 Dose: 81 mg Documented by: Atorvastatin Calcium (Lipitor) 80 mg PO QHS [facility] Last Admin: 07/07/19 21:00 Dose: 80 mg Documented by: Clopidogrel Bisulfate (Plavix) 75 mg PO DAILY [facility] Last Admin: 07/08/19 09:09 Dose: 75 mg Documented by: Enoxaparin Sodium (Lovenox) 40 mg SC DAILY [facility] Last Admin: 07/08/19 09:10 Dose: 40 mg Documented by: Glucagon () 1 mg IM .X1 PRN PRN Reason: Hypoglycemia Guaifenesin (Robitussin) 20 ml PO Q4H PRN PRN PRN Reason: COUGH Hydralazine HCl (Apresoline Iv) 10 mg IV Q4H PRN PRN PRN Reason: SBP > 160 Sodium Chloride () 1,000 mls @ 125 mls/hr IV .Q8H [facility] Last Admin: 07/08/19 04:49 Dose: 125 mls/hr Documented by: Dextrose (Dextrose 10%-Water) 250 mls @ 999 mls/hr IV .Q16M PRN; Protocol PRN Reason: HYPOGLYCEMIA Magnesium Hydroxide (Milk Of Magnesia) 30 ml PO DAILY PRN PRN Reason: Constipation Melatonin (Melatonin) 3 mg PO QHS PRN PRN PRN Reason: INSOMNIA Ondansetron HCl (Zofran) 4 mg IV Q8H PRN PRN PRN Reason: NAUSEA/VOMITING Sodium Chloride () 10 - 40 ml IV UD PRN PRN Reason: SALINE FLUSH Throat Lozenges (Cepacol Sore Throat Lozenge) 1 lozenge MUCOUS MEM Q2H PRN PRN PRN Reason: Sore Throat/Cough Medical Necessity - Tobacco Use Smoking Status: Never smoker Tobacco Use: Non-smoker Assessment/Plan All Active Problems Paresthesia of left arm (Acute) Lt facial numbness (Acute) Cephalgia (Acute) Word finding difficulty (Acute) 1. Acute ischemic stroke-MRI demonstrates small acute ischemia left temporal and posterior frontal lobe. CTA of head and neck on admission normal. Echocardiogram demonstrates an EF of 60%, bubble contrast study negative for right to left intra-atrial shunt. Follow-up tele-neurology consult placed given MRI findings. Neurology recommending dual antiplatelet therapy with aspirin and Plavix for 90 days followed by aspirin alone. Continue high-dose statin. Additionally recommending TYLOR, hypercoagulable work-up and event recorder at discharge. Also of concern is patient's numbness of chin area. Recommend follow-up as outpatient with neurology as well as PCP as this may represent other underlying concerns such as malignancy per neurology. PT/OT/ST. Anticipate discharge home tomorrow following TYLOR and placement of event recorder. 2. Cephalgia-improved. Do not feel this is related to #1. Continue as needed Tylenol. 3. Chronic neck pain/cervical radiculopathy-MRI of cervical spine shows mild spondylosis most severe at C5-C6 and C6-C7. Spinal stenosis at C5-C6 and C6-C7 greater on the left. Continue outpatient follow-up. Patient has followed with spine surgeon in the past for lumbar issues. Recommended returning for further follow-up. 4. Thyroid nodules-on iodine supplementation. TSH within normal limits. 5. Hyperlipidemia-initiated on high-dose statin. DVT prophylaxis-Lovenox subcu This patient was seen by CAPRI Li under the supervision of Dr. Berumen. <Mando Berumen - Last Filed: 07/08/19 12:16> - Physical Exam Vitals/I&O's: Vital Signs Temp Pulse Resp BP Pulse Ox 97.8 F 60 16 120/75 96 07/08/19 09:00 07/08/19 09:00 07/08/19 09:00 07/08/19 09:00 07/08/19 09:00 Oxygen Delivery Method Room Air Weight: 81.556 kg Body Mass Index (BMI) 29.5 Finger Stick Blood Glucose 78 Intake and Output for Last 24 Hours 07/06/19 07/07/19 07/08/19 23:59 23:59 23:59 Intake Total 1268.33 / 1268.33 3821.67 / 4061.67 1457.08 / 1457.08 Balance 1268.33 / 1268.33 3821.67 / 4061.67 1457.08 / 1457.08 Laboratory Results 07/07/19 15:30: Urine Opiates Screen NEGATIVE, Urine Methadone Screen NEGATIVE, Ur Barbiturates Screen NEGATIVE, Ur Phencyclidine Scrn NEGATIVE, Ur Amphetamines Screen NEGATIVE, U Methamphetamin-MDMA NEGATIVE, U Benzodiazepines Scrn NEGATIVE, Urine Cocaine Screen NEGATIVE, U Cannabinoids Screen NEGATIVE, Ur Drug Screen Comment 07/07/19 16:45: Protein C Antigen Pending, Functional Protein C Pending, Prot C Funct Activity Pending, Antithrombin III Ag Pending, Func Antithrombin III Pending, Factor V Leiden Mutat Pending, Beta-2-GPI IgG Ab Pending, Beta-2-GPI IgA Ab Pending, Beta-2-GPI IgM Ab Pending, Anti-Cardiolipin IgG Ab Pending, Anti-Cardiolipin IgM Ab Pending, Factor II DNA Analysis Pending Current Medications Acetaminophen (Tylenol) 650 mg PO Q6H PRN PRN PRN Reason: Non-cardiac pain (4-04/12) Last Admin: 07/07/19 20:58 Dose: 650 mg Documented by: Acyclovir (Zovirax) 400 mg PO BID [facility] Last Admin: 07/08/19 09:09 Dose: 400 mg Documented by: Al Hydroxide/Mg Hydroxide (Mylanta Ii) 15 - 30 ml PO Q4H PRN PRN PRN Reason: INDIGESTION Albuterol Sulfate (Ventolin Aerosols) 2.5 mg INHALATION Q2H PRN PRN PRN Reason: dyspnea, wheezing Aspirin (Aspirin, Baby) 81 mg PO DAILY@0800 [facility] Last Admin: 07/08/19 09:10 Dose: 81 mg Documented by: Atorvastatin Calcium (Lipitor) 80 mg PO QHS [facility] Last Admin: 07/07/19 21:00 Dose: 80 mg Documented by: Clopidogrel Bisulfate (Plavix) 75 mg PO DAILY [facility] Last Admin: 07/08/19 09:09 Dose: 75 mg Documented by: Enoxaparin Sodium (Lovenox) 40 mg SC DAILY [facility] Last Admin: 07/08/19 09:10 Dose: 40 mg Documented by: Glucagon () 1 mg IM .X1 PRN PRN Reason: Hypoglycemia Guaifenesin (Robitussin) 20 ml PO Q4H PRN PRN PRN Reason: COUGH Hydralazine HCl (Apresoline Iv) 10 mg IV Q4H PRN PRN PRN Reason: SBP > 160 Sodium Chloride () 1,000 mls @ 125 mls/hr IV .Q8H [facility] Last Admin: 07/08/19 04:49 Dose: 125 mls/hr Documented by: Dextrose (Dextrose 10%-Water) 250 mls @ 999 mls/hr IV .Q16M PRN; Protocol PRN Reason: HYPOGLYCEMIA Magnesium Hydroxide (Milk Of Magnesia) 30 ml PO DAILY PRN PRN Reason: Constipation Melatonin (Melatonin) 3 mg PO QHS PRN PRN PRN Reason: INSOMNIA Ondansetron HCl (Zofran) 4 mg IV Q8H PRN PRN PRN Reason: NAUSEA/VOMITING Sodium Chloride () 10 - 40 ml IV UD PRN PRN Reason: SALINE FLUSH Throat Lozenges (Cepacol Sore Throat Lozenge) 1 lozenge MUCOUS MEM Q2H PRN PRN PRN Reason: Sore Throat/Cough Assessment/Plan This patient was seen in conjunction with CAPRI Li . I have independently interviewed and examined the patient and reviewed pertinent historical, laboratory, and other data. Please refer to CAPRI Li note for details of this patient's presentation, findings, and recommendations. I have reviewed CAPRI Li note and concur with documented findings. In brief, patient is a 53-year-old admitted with neck pain, subjective right upper extremity weakness as well as speech difficulty. MRI obtained demonstrated Findings consistent with mild focal acute ischemic changes in the medial left temporal lobe and left frontal temporal region admitted to monitored bed where patient is currently undergoing evaluation 07/08/2019: Patient seen admitted improvement in his symptoms including his subjective right upper extremity weakness. She was also seen in consultation by telemetry neurology recommendations reviewed. Patient to undergo TYLOR on 07/09/2019. Physical Examination: GENERAL: cooperative HEENT: Atraumatic; EYES; Anicteric, Normal Conjunctiva NECK; supple, normal thyroid, RESPIRATORY: Diminished to auscultation CARDIOVASCULAR: Regular S1 S2, GI: soft, normoactive bowel sounds, MUSCULOSKELETAL: no muscle waisting NEURO: Awake; no lateralizing signs. SKIN: No Rash PSYCH; Flat affect Assessment: 1. Acute ischemic CVA 2. Spinal stenosis involving the cervical spine 3. Dyslipidemia 4. Thyroid nodules Recommendations: 1. I have discussed the results of my overview and impressions with the patient 2. Options for management were reviewed Code Visit Inpatient E&M: 93043 Subs Hosp L2
[2019-07-08] MEDS: Acetaminophen 325 MG Tablet 650 MG PO (18:53)
[2019-07-08] MEDS: Atorvastatin Calcium 80 MG Tablet PO (21:41)
[2019-07-09] VITALS (7 sets, daily range): BP systolic 122–147; BP diastolic 74–80; PULSE 57–68; RESP 16–18; TEMP 36.7–37.2; O2SAT 98–100
[2019-07-09] MEDS: 0.9% Normal Saline 1,000 ML 125 ML IV (05:08)
--- NOTE | 2019-07-09 11:23 | CASEMGMT ---
This RN CM to room to complete CM assessment and pt is out of the dept at this time. Will attempt again later. SStaten RN CM
--- NOTE | 2019-07-09 11:52 | DCINST_ITS ---
- Discharge Diagnoses Current Active Problems: Current Active and Chronic Problems 1. Acute left temporal and left frontal stroke 2. Hyperlipidemia You will use the following diet at home:: No restrictions Discharge Activity: Return to Normal Activity Call your doctor if you observe: Numbness or Tingling, Chest pain, Increased palpitations (irregular heartbeat) Additional Instructions: You requested follow up with neurology at [facility]. There are multiple neuro providers at [facility] and you may choose an alternative provider other than the physician listed below if you choose. Allergies/Adverse Reactions: Allergies latex Allergy (Verified 07/06/19 12:06) Hives meloxicam Allergy (Verified 07/06/19 12:06) Anaphylaxis nickel Allergy (Verified 07/06/19 12:06) Hives esomeprazole [From Nexium] Adverse Reaction (Verified 07/06/19 12:06) Upset Stomach thimerosal Adverse Reaction (Verified 07/06/19 12:06) Angioedema Medications to take at Discharge Valacyclovir HCl [Valtrex] 500 mg PO DAILY 05/09/18 Acetaminophen [Tylenol Arthritis] 650 mg PO Q4H PRN PRN 07/06/19 Cholecalciferol (Vitamin D3) [Vitamin D3] 2,000 unit PO DAILY 07/06/19 Fish Oil/Dha/Epa [Fish Oil 1,200 mg Fish Oil] 3 cap PO DAILY 07/06/19 Iodine [Kelp] 300 mcg PO DAILY 07/06/19 L.acidoph,Paracasei, B.lactis [Probiotic] 1 cap PO DAILY 07/06/19 Multivitamins,Therapeutic [Multivitamin] 1 tab PO DAILY 07/06/19 Turmeric/Turmeric Root Extract [Turmeric 500 mg Capsule] 1 cap PO BID 07/06/19 Vitamin B Complex [B Complex] 1 tab PO DAILY 07/06/19 Aspirin [Aspirin, Baby] 81 mg PO DAILY@0800 #60 tab.chew 07/09/19 Atorvastatin Calcium [Lipitor] 80 mg PO QHS #60 tab 07/09/19 Clopidogrel Bisulfate [Plavix] 75 mg PO DAILY #60 tab 07/09/19 The following prescriptions were given: Aspirin [Aspirin, Baby] 81 mg PO DAILY@0800 #60 tab.chew Transmission Status: Pending to [facility]/pharmacy #[id number] Atorvastatin Calcium [Lipitor] 80 mg PO QHS #60 tab Transmission Status: Pending to [facility]pharmacy #[id number] Clopidogrel Bisulfate [Plavix] 75 mg PO DAILY #60 tab Transmission Status: Pending to [facility]acy #[id number] Orders to be completed after discharge: 30-Day Event Recorder [[facility]] Location: None Selected Primary Care Physician: Kiara Justice DO [Primary Care Provider] - Please follow up with your Primary Care Physician in: 1 Week Test Results: Test results from this visit will be discussed in further detail at your follow- up appointment, if applicable. Please Follow Up With: Dr. Zenobia Velasquez - [facility] neuro [facility] When: [phone]- call for follow up 1-2 weeks Please Follow Up With: Dr. Michael Hernandez When: Call for follow up regarding cervical spine stenosis- non-urgent Proposed Discharge Date: 07/09/19
--- NOTE | 2019-07-09 12:02 | DS.PCM_ITS ---
<Jacinta Leary - Last Filed: 07/09/19 12:16> Discharge Date and Diagnosis Date of Admission: 07/06/19 Date of Discharge: 07/09/19 - Primary Discharge Diagnosis Active and Suspected Problems 1. Acute ischemic stroke 2. Cephalgia 3. Chronic neck pain/cervical radiculopathy/spinal stenosis 4. Thyroid nodules 5. Hyperlipidemia Hospital Course and Treatment Imaging Results: Diagnostic Data Head/Neck CTA 07/06/19 13:27 IMPRESSION: Within normal limits CTA Head and neck with contrast. Electronically Signed: Dory Zepeda MD at 15:15 EST Tel , Service support , Chest X-Ray 07/06/19 13:30 IMPRESSION: No acute cardiopulmonary process. Electronically Signed: Dory Zepeda MD at 14:36 EST Tel , Service support , Brain MRI 07/06/19 17:52 IMPRESSION: Findings consistent with mild focal acute ischemic changes in the medial left temporal lobe and left frontal temporal region. Electronically Signed: Dru Chance MD at 20:42 EST , Service support , ADDENDUM: 07/06/192055 IMPRESSION: Findings consistent with mild focal acute ischemic changes in the medial left temporal lobe and left frontal temporal region. N.B. : The above information has been verbally conveyed by Dru Chance MD to block captainVALENTINO Lopez RN, on 07/06/2019 20:49:05 (ET). Electronically Signed: Dru Chance MD at 20:42 EST , Service support , Cervical Spine MRI 07/06/19 17:52 IMPRESSION: No evidence for acute fracture or other significant bony pathology. Mild spondylosis most severe at C5-6 and C6-7. Spinal stenosis at C5-6 and C6-7 greater on the left secondary to disc disease and bony hypertrophy Electronically Signed: Dru Chance MD at 21:14 EST , Service support , Tele-neurology consult Operations: None Procedures: 2-D Echocardiogram, Transesophageal Echo Summary of Care Provided: The patient is a 53 year old F admitted 07/06/2019 due to multiple neurologic complaints and headache. 1. Acute ischemic stroke-MRI demonstrates small acute ischemia left temporal and posterior frontal lobe. CTA of head and neck on admission normal. Echocardiogram demonstrates an EF of 60%, bubble contrast study negative for right to left intra-atrial shunt. Follow-up tele-neurology consult placed given MRI findings. Neurology recommending dual antiplatelet therapy with aspirin and Plavix for 90 days followed by aspirin alone. Continue high-dose statin. Additionally recommending TYLOR, hypercoagulable work-up and event recorder at discharge. Also of concern is patient's numbness of chin area. Recommend fo llow-up as outpatient with neurology as well as PCP as this may represent other underlying concerns such as malignancy, specifically lymphoma, per neurology. Hypercoagulable panel pending at discharge. 30-day event recorder ordered at discharge as well and will be read by Dr. Laguerre, results will be sent to PCP as well. TYLOR completed, report pending however based on discussion with cardiology, no significant findings. Patient requested referral to [facility] neurology, instructed patient to call for first available appointment. Follow-up with primary care provider in 1 week. 2. Cephalgia-improved. Do not feel this is related to #1. No further headache during admission. Follow-up with PCP. 3. Chronic neck pain/cervical radiculopathy/spinal stenosis-MRI of cervical spine shows mild spondylosis most severe at C5-C6 and C6-C7. Spinal stenosis at C5-C6 and C6-C7 greater on the left. Continue outpatient follow-up. Patient has followed with Dr. Michael Hernandze, neurosurgeon at [facility] for lumbar back issues. Recommend returning for further evaluation regarding cervical spine stenosis. 4. Thyroid nodules-on iodine supplementation. TSH within normal limits. 5. Hyperlipidemia-initiated on high-dose statin. General: Alert, Oriented x3, Cooperative HEENT: Atraumatic, PERRLA, EOMI, Normocephalic Neck: Supple, No JVD, Negative Carotid Bruits Lungs: Clear to auscultation, Normal air movement Cardiovascular: Regular rate, Regular Rhythm, Normal S1, Normal S2, No murmurs Abdomen: Bowel Sounds Present, Soft, Non Tender, Non-Distended Extremities: No clubbing, No cyanosis, No edema, Capillary Refill Less than 3 Seconds Skin: No rashes, No breakdown Musculoskeletal: No Tenderness to Palpation of Joints or Extremities Neurological: Cranial nerves II-XII grossly intact, Neuro grossly intact Psych/Mental Status: Normal Affect, Appropriate Patient seen and examined prior to discharge. Physical assessment as noted above. Patient is stable for discharge with follow up recommendations as noted above. This patient was seen by CAPRI Li under the supervision of Dr. Kwan. - Physical Exam Vitals/I&O's: Vital Signs Temp Pulse Resp BP Pulse Ox 98.0 F 57 L 17 137/76 H 99 07/09/19 10:00 07/09/19 10:50 07/09/19 10:00 07/09/19 10:00 07/09/19 10:00 Oxygen Delivery Method Room Air Weight: 179 lb 12.8 oz Body Mass Index (BMI) 29.5 Finger Stick Blood Glucose 78 Intake and Output for Last 24 Hours 07/07/19 07/08/19 07/09/19 23:59 23:59 23:59 Intake Total 3821.67 / 4061.67 3937.08 / 3937.08 1743.33 / 1743.33 Balance 3821.67 / 4061.67 3937.08 / 3937.08 1743.33 / 1743.33 Current Medications Acetaminophen (Tylenol) 650 mg PO Q6H PRN PRN PRN Reason: Non-cardiac pain () Last Admin: 07/08/19 18:53 Dose: 650 mg Documented by: Acyclovir (Zovirax) 400 mg PO BID JI Last Admin: 07/08/19 21:41 Dose: 400 mg Documented by: Al Hydroxide/Mg Hydroxide (Mylanta Ii) 15 - 30 ml PO Q4H PRN PRN PRN Reason: INDIGESTION Albuterol Sulfate (Ventolin Aerosols) 2.5 mg INHALATION Q2H PRN PRN PRN Reason: dyspnea, wheezing Aspirin (Aspirin, Baby) 81 mg PO DAILY@0800 [facility] Last Admin: 07/08/19 09:10 Dose: 81 mg Documented by: Atorvastatin Calcium (Lipitor) 80 mg PO QHS [facility] Last Admin: 07/08/19 21:41 Dose: 80 mg Documented by: Clopidogrel Bisulfate (Plavix) 75 mg PO DAILY [facility] Last Admin: 07/08/19 09:09 Dose: 75 mg Documented by: Enoxaparin Sodium (Lovenox) 40 mg SC DAILY [facility] Last Admin: 07/08/19 09:10 Dose: 40 mg Documented by: Glucagon () 1 mg IM .X1 PRN PRN Reason: Hypoglycemia Guaifenesin (Robitussin) 20 ml PO Q4H PRN PRN PRN Reason: COUGH Hydralazine HCl (Apresoline Iv) 10 mg IV Q4H PRN PRN PRN Reason: SBP > 160 Sodium Chloride () 1,000 mls @ 125 mls/hr IV .Q8H [facility] Last Infusion: 07/09/19 11:08 Dose: 0 mls/hr Documented by: Dextrose (Dextrose 10%-Water) 250 mls @ 999 mls/hr IV .Q16M PRN; Protocol PRN Reason: HYPOGLYCEMIA Magnesium Hydroxide (Milk Of Magnesia) 30 ml PO DAILY PRN PRN Reason: Constipation Melatonin (Melatonin) 3 mg PO QHS PRN PRN PRN Reason: INSOMNIA Ondansetron HCl (Zofran) 4 mg IV Q8H PRN PRN PRN Reason: NAUSEA/VOMITING Sodium Chloride () 10 - 40 ml IV UD PRN PRN Reason: SALINE FLUSH Throat Lozenges (Cepacol Sore Throat Lozenge) 1 lozenge MUCOUS MEM Q2H PRN PRN PRN Reason: Sore Throat/Cough Discharge Diet: Low fat/ Low Cholesterol Discharge Activity: Return to Normal Activity Call your doctor if you observe: Numbness or Tingling, Chest pain, Increased palpitations (irregular heartbeat) Home Medications: Medications to take at Discharge Valacyclovir HCl [Valtrex] 500 mg PO DAILY 05/09/18 Acetaminophen [Tylenol Arthritis] 650 mg PO Q4H PRN PRN 07/06/19 Cholecalciferol (Vitamin D3) [Vitamin D3] 2,000 unit PO DAILY 07/06/19 Fish Oil/Dha/Epa [Fish Oil 1,200 mg Fish Oil] 3 cap PO DAILY 07/06/19 Iodine [Kelp] 300 mcg PO DAILY 07/06/19 L.acidoph,Paracasei, B.lactis [Probiotic] 1 cap PO DAILY 07/06/19 Multivitamins,Therapeutic [Multivitamin] 1 tab PO DAILY 07/06/19 Turmeric/Turmeric Root Extract [Turmeric 500 mg Capsule] 1 cap PO BID 07/06/19 Vitamin B Complex [B Complex] 1 tab PO DAILY 07/06/19 Aspirin [Aspirin, Baby] 81 mg PO DAILY@0800 #60 tab.chew 07/09/19 Atorvastatin Calcium [Lipitor] 80 mg PO QHS #60 tab 07/09/19 Clopidogrel Bisulfate [Plavix] 75 mg PO DAILY #60 tab 07/09/19 Following Prescrptions Were Given to Patient: Aspirin [Aspirin, Baby] 81 mg PO DAILY@0800 #60 tab.chew Transmission Status: [id number] Atorvastatin Calcium [Lipitor] 80 mg PO QHS #60 tab Transmission Status: Re[id number] Clopidogrel Bisulfate [Plavix] 75 mg PO DAILY #60 tab Transmission Status: [id number] Other Amb Orders: 30-Day Event Recorder [[facility]] Location: None Selected Primary Care Physician: Kiara Justice DO [Primary Care Provider] - Please follow up with your Primary Care Physician in: 1 Week Please Follow Up With: Dr. Zenobia Velasquez - [facility] When: [phone]- call for follow up 1-2 weeks Please Follow Up With: Dr. Michael Hernandez When: Call for follow up regarding cervical spine stenosis- non-urgent Disposition: Home Minutes spent on discharge:: 35 Patient Condition:: Stable Medical Necessity - Tobacco Use Smoking Status: Never smoker Tobacco Use: Non-smoker Meaningful Use Info Meaningful Use Diagnoses (Choose all that apply): Ischemic CVA - CVA Therapy Assessed for PT,OT and/or ST?: Yes - Ischemic Stroke Antithrombotic order at d/c?: Yes Dx of Atrial fib/flutter?: No Statins at discharge?: Yes Primary Dx Acute Ischemic CVA?: Yes IV tPA ordered during stay?: No Reason IV t-PA not ordered: Medical Contraindication <Koram,Katie Dipti - Last Filed: 07/09/19 16:54> Hospital Course and Treatment Summary of Care Provided: Patient seen by Jacinta FAROOQ under my supervision The patient is a 53 year old F admitted with a complaint of bilateral upper extremity paresthesias and facial paresthesias as well as difficulty in word finding. She was found to have an acute ischemic stroke per MRI which showed small acute ischemia in the left temporal and posterior frontal lobe. CT of the head and neck done were normal. 2D echo done showed EF of 60% with a negative bubble study for right to left intra-atrial shunt. Neurology was consulted and she was placed on aspirin and Plavix for 90 days followed by aspirin alone after that. She was also to continue on high intensity statin. Patient had a TYLOR which showed a small PFO but was otherwise normal. Patient continued complaining of numbness in her chin area and per neurology she should follow-up with outpatient neurology as this could represent underlying concern such as malignancy specifically lymphoma which could present with numb chin syndrome. Patient was also to have a hypercoagulable panel done upon discharge. She remained stable and PT OT on board. She was discharged home on 07/09/2019 with a 30-day event recorder. Results will be read by Dr. Rao and results also be sent to her PCP. Per patient's request, she was referred to [facility] neurology clinic and is to call for an appointment. She is to follow-up with her primary care doctor within 1 week. Patient seen and examined prior to discharge. She was alert and oriented and had no complaints. Patient did tend to ramble in her speech, but otherwise had no complaints. Review of symptoms otherwise negative. Labs and vitals reviewed. Home medication reviewed and reconciled. o/e: Vital Signs Height 5 ft 5.5 in Weight: 179 lb 12.8 oz Weight in Pounds 179.8 lbs Pulse Ox 99 Temperature 98.1 F Pulse Rate 68 Respiratory Rate 16 Blood Pressure 122/80 Blood Pressure Position Semi-Fowlers [] General: Alert, Oriented x3, Cooperative HEENT: Atraumatic, PERRLA, EOMI, Normocephalic Neck: Supple, No JVD, Negative Carotid Bruits Lungs: Clear to auscultation, Normal air movement Cardiovascular: Regular rate, Regular Rhythm, Normal S1, Normal S2, No murmurs Abdomen: Bowel Sounds Present, Soft, Non Tender, Non-Distended Extremities: No clubbing, No cyanosis, No edema, Capillary Refill Less than 3 Seconds Skin: No rashes, No breakdown Musculoskeletal: No Tenderness to Palpation of Joints or Extremities Neurological: Cranial nerves II-XII grossly intact, Neuro grossly intact Psych/Mental Status: Normal Affect, Appropriate Of note, MRI of cervical spine also showed mild cervical spondylosis mainly at C5-C6 and C6-C7 and also spinal stenosis at C5-6 6 and C6-C7 and greater on the left. Patient is to continue following with Dr. Michael Lopez, neurosurgeon at [facility] for the cervical stenosis and cervical spondylosis. She is continued on the aspirin and Plavix and after 90 days continue with aspirin only. Rest of management as per CAPRI Li's notes which I reviewed and endorsed. - Physical Exam Vitals/I&O's: Vital Signs Temp Pulse Resp BP Pulse Ox 98.1 F 68 16 122/80 H 99 07/09/19 12:37 07/09/19 13:13 07/09/19 12:37 07/09/19 12:37 07/09/19 12:37 Oxygen Flow Rate (L/min) 2 Oxygen Delivery Method Nasal Cannula Weight: 179 lb 12.8 oz Body Mass Index (BMI) 29.5 Finger Stick Blood Glucose 78 Intake and Output for Last 24 Hours 07/07/19 07/08/19 07/09/19 23:59 23:59 23:59 Intake Total 3821.67 / 4061.67 3937.08 / 3937.08 1857.91 / 1857.91 Balance 3821.67 / 4061.67 3937.08 / 3937.08 185. / 185.91 Code Visit Inpatient E&M: 75558 Disch Hosp
--- NOTE | 2019-07-09 12:55 | CASEMGMT ---
MINI PALOMINO assessment: Face to Face with patient for initial transition planning/care coordination assessment. RN CANDELARIO introduced self and role at [facility], pt voices understanding and consents to assessment at this time. Pt is lying in bed in no distress at this time. Pt is A/Ox4 at this time and answers all questions appropriately at this time. Pt with a family member at bedside during assessment. Care providers, pharmacy, and demographics verified at this time. Presentation: Pt c/o numbness under chin/dizziness, weakness since neck injury on 06/11/19. Admitting dx: Headache, paresthesias, possible complex migraine then pt dx with Acute CVA s/p MRI PCP: [facility] Specialists: Sung, endocrinology [facility] Insurance: MMO Prescription Benefit: MMO Living Will/HPOA: Pt states does not have LW/HPOA but is interested in completing at this time. Jodee QUARLES aware, voices understanding. LNOK: Chris Wellington, ; Kyra Rice, mother Living Arrangements: Pt states lives with in home and states no concerns at home at this time. Pt states is independent with ADL's. Transportation: Pt states drives self and states no transportation concerns at this time. DME/HHC: Pt states has a shower chair and no further DME at this time. Pt states no need for any further DME at this time. Pt states no hx of HHC or SNF in the past. Speech therapy is recommending further therapy for pt at this time and pt would like OP speech therapy also at this time. Script for OP speech therapy provided to pt at this time as she would like to take it to a [facility] facility of her choosing. PT/OT did not recommend any further therapy for pt at this time. Pt states no concerns with going home at time of discharge. Pt does state some concerns with setting up neuro f/u and this RN CANDELARIO attempted to answer all questions for pt at this time. Mari, PCU secretary to board of commissioners, aware that pt would like to sign a release of info at this time, voices understanding. Pt states that she would like to shower and CHEIKH Hancock, aware and states will get pt set up at this time. 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 Pt states does not smoke but does drink ETOH occasionally. Pt voices no further concerns/needs at this time. CM to follow for any further discharge planning/needs. Advised pt to ask for CM if any further questions/concerns/needs arise, voices understanding. Pt Goal: Home Plan: Home Terri MORSE CM
[2019-07-13 20:07] LABS: Antithrombin 3 Function 68 % (75-135); Protein C Antigen 117 % (60-150); Protein C, Functional 162 % (73-180)
[2019-07-14 15:35] LABS: Anti-Cardiolipin Ab, IgG, Qn < 9 GPL U/mL (0-14); Anti-Cardiolipin Ab, IgM, Qn < 9 MPL U/mL (0-12); Anti-Thrombin 3 AG, Immunol 98 % (72-124); Beta-2-Glycoprotein I IgA <9 (0-25); Beta-2-Glycoprotein I IgG <9 (0-20); Beta-2-Glycoprotein I IgM <9 (0-32)
== END 2019-07-09 13:37 | disposition home or self-care (01) | DRG 65 ==
LOC: ED 17:22 → PCU 17:52
PROVIDERS: Nurse Practitioner Family; Admitting Provider Family Medicine; Emergency Provider Emergency Medicine; Family Provider Internal Medicine; PCP Internal Medicine; Visit Provider Student in an Organized Health Care Education/Training Program
DX: I63.9 Cerebral infarction, unspecified (principal); Q21.1 Atrial septal defect; R47.01 Aphasia; R29.810 Facial weakness; G83.24 Monoplegia of upper limb affecting left nondominant side; M54.12 Radiculopathy, cervical region; M48.02 Spinal stenosis, cervical region; G89.29 Other chronic pain; R68.84 Jaw pain; E04.2 Nontoxic multinodular goiter; E78.5 Hyperlipidemia, unspecified; Z79.02 Long term (current) use of antithrombotics/antiplatelets; Z79.82 Long term (current) use of aspirin; Z79.899 Other long term (current) drug therapy; Z90.710 Acquired absence of both cervix and uterus
CPT/HCPCS: 36415; 70496; 70498; 70553; 71045; 72156; 80048; 80053; 80061; 80307; 81240; 81241; 82607; 82746; 82962; 83735; 84443; 84484; 85025; 85300; 85301; 85302; 85303; 85379; 85610; 85730; 86146; 86147; 92523; 93005; 93306; 93312; 93320; 93325; 97161; 97165; 97802; 99284; 99285; A9575; J7030; J7040; Q9967; A4216

== ENCOUNTER 2019-07-11 17:25 | Emergency (ER) | payer OTHER, SELFPAY ==
[2019-07-08 23:57] VITALS: BMI 29.5
[2019-07-11 17:25] VITALS: BP 157/95; PULSE 85; RESP 20; O2SAT 99
[2019-07-11 17:26] VITALS: BP 143/92; PULSE 78; RESP 16; TEMP 36.6; O2SAT 100; BMI 31.7
--- NOTE | 2019-07-11 17:34 | EKG12_ITS ---
Test Reason : CP Blood Pressure : / mmHG Vent. Rate : 069 BPM Atrial Rate : 069 BPM P-R Int : 146 ms QRS Dur : 076 ms QT Int : 390 ms P-R-T Axes : 054 050 045 degrees QTc Int : 417 ms Normal sinus rhythm with sinus arrhythmia Normal ECG Confirmed by HORTENSIA WATTS, DARLING ([id number]), newspaper editor managing SIDDHARTH COOK ([id number]) on 07/12/2019 11:28:56 AM Referred By: MISTY/EWA Confirmed By:BULL BAZAN MD
--- NOTE | 2019-07-11 17:58 | ED.DCSUM_ITS ---
History of Present Illness Chief Complaint: Chest Pain Informant: Patient Onset: Hours - 3 Activity at onset: Rest - after eating. reclined back in chair and noticed. Timing: Continuous Quality: - - sore Location: Left Chest - just left of lower sternum Current Severity: Mild Maximum Severity: Mild Worsened By: Palpation, Breathing. Not Worsened By: Exertion Relieved By: Nothing Associated Symptoms: Negative for: Nausea, Vomiting, Diaphoresis, Dyspnea, Cough, Fever, Lightheadedness, Acid Reflux, Palpitations Narrative: Patient was just seen and admitted to the hospital and diagnosed with a stroke. She has some speech issues, right upper extremity tingling, and numbness under her chin. Those symptoms are stable. She was put on aspirin and Plavix and has been compliant with that in addition to Lipitor. She started having chest dis comfort this afternoon after eating and going into a chair to recline. She has had some mild stomach upset without any vomiting or major abdominal pain, states that she is wondering if these 3 medications that are new do not agree with her stomach. She denies any syncope or near syncopal symptoms. She has no known history of heart problems but during her stroke work-up recently she had a transesophageal echocardiogram that showed a minor PFO that they thought was probably not causing her stroke but now she is on a monitoring tech at home to rule out dysrhythmias. Patient also states she has been having some discomfort in her left lower leg without swelling, it goes down into her big toe. She states my doctor was going to get an ultrasound. No history of DVTs or PE. States she also has a history of sciatica in this leg in the past, it is off and on. - Past Medical History (1) Ischemic stroke Status: Chronic (2) Low back pain with left-sided sciatica Status: Chronic Past Medical History - Allergies and Home Meds Allergies/Adverse Reactions: Allergies latex Allergy (Verified 07/11/19 17:27) Hives meloxicam Allergy (Verified 07/11/19 17:27) Anaphylaxis nickel Allergy (Verified 07/11/19 17:27) Hives esomeprazole [From Nexium] Adverse Reaction (Verified 07/11/19 17:27) Upset Stomach thimerosal Adverse Reaction (Verified 07/11/19 17:27) Angioedema Primary Care Physician: Kiara Justice DO [Primary Care Provider] - Surgical History: - - Left labrum tear repair, 2 left knee scopes, hysterectomy, tonsillectomy. Lives: With Family Smoking Status: Never smoker - Family History Maternal Family History: Reports: - - Low sodium, thyroid issues Paternal Family History: Reports: Heart Disease Review of Systems General: Denies: Chills, Fever, Sweats Eyes: Denies: Visual changes - bilaterally, Diplopia ENT: Denies: Rhinorrhea, Sore throat Cardiovascular: Reports: Chest pain - no radiation. Denies: Palpitations Respiratory: Reports: Dyspnea on exertion - Mild after flight of stairs. Denies: Dyspnea, Cough Gastrointestinal: Reports: Abdominal pain. Denies: Nausea, Vomiting, Diarrhea, Melena, Hematochezia Genitourinary: Denies: Dysuria, Hematuria, Frequency Musculoskeletal: Reports: Extremity Pain - Left lower, mild. Denies: Neck pain, Back pain Skin: Denies: Rash, Wounds Neurological: Reports: Headache - off and on, not now, Numbness. Denies: Weakness Physical Exam Vital Signs/Narrative: Vital Signs Temp Pulse Resp BP Pulse Ox 07/11/19 17:26 98 F 78 16 143/92 H 100 07/11/19 17:25 85 20 H 157/95 H 99 Inital Vital Signs reviewed: Yes General: Well nourished, Well developed, No Acute Distress Head: Normocephalic, Atraumatic Eyes: Perrl, EOMI ENT: Moist mucous membranes, No rhinorrhea Neck: Supple, Nontender Cardiovascular: Regular rate, Regular rhythm, No murmurs Respiratory: No distress, CTA bilaterally, Chest nontender Abdomen: Soft, Nontender, Nondistended, Normal bowel sounds Back: Nontender, Normal Inspection Extremities: Nontender, No edema. Negative for: Calf Tenderness Skin: Normal color, No rash, No Trauma Neurological: Alert, Oriented x3, Cranial nerves II-XII grossly intact, Normal Strength, Parasthesia - RUE, chin, - - mild expressive aphasia Psychological: Normal affect, Normal Mood Diagnostic/Tx/Re-eval Laboratory Results 07/11/19 07/11/19 07/11/19 18:08 18:08 18:08 WBC 6.1 RBC 4.56 Hgb 14.8 Hct 42.9 MCV 94.1 MCH 32.5 H MCHC 34.5 RDW Std Deviation 41.2 RDW Coeff of Gabriel 12.0 Plt Count 219 MPV 11.0 Immature Gran % (Auto) 0.500 Neut % (Auto) 44.6 L Lymph % (Auto) 44.2 H [place] % (Auto) 8.2 Eos % (Auto) 2.0 Baso % (Auto) 0.5 Absolute Neuts (auto) 2.7 Absolute Lymphs (auto) 2.70 Nucleated RBC % 0 D-Dimer Quant (PE/DVT) 0.30 Sodium 141 Potassium 3.8 Chloride 107 Carbon Dioxide 27.0 Anion Gap 7 BUN 17 Creatinine 0.89 Estim Creat Clear Calc 66.54 Est GFR (MDRD) Af Amer 86 Est GFR (MDRD) Non-Af 71 BUN/Creatinine Ratio 19.1 Glucose 92 Calcium 9.6 Troponin I < 0.015 - Rhythm Strip Rhythm Strip: Sinus Rhythm Rate: 69 Ectopy: None - EKG Initial EKG Interpretation: Sinus Rhythm, No Acute Injury Pattern - Normal, nonischemic EKG Prior: Unchanged Treatment: GI Cocktail - No significant change. See below. - Medical Decision Making Work-up is unremarkable. Her enzymes are negative. I do not think we need to do another set. Patient actively sits up and realizes that is making the pain a little worse. It is reproducible on palpation. Her d-dimer is negative, ruling out DVT and pulmonary embolus acutely in context. I think this is musculoskeletal in nature. Furthermore, it is very close to where her monitoring tech is. It is possible this is something to do with it, either way I do not think there is anything dangerous going on. Her vital signs are normal, her blood pressure is 125, and she has no dyspnea or severe pains. The GI cocktail helped her stomach upset. She was offered Tylenol, but she declines and states she can take some at home. I advised avoiding NSAIDs given her Plavix. She is comfortable with discharge and will follow-up or return if worse. All questions answered at the bedside with family present. ED Disposition - Plan for ED Patient: Disposition: Home or Assisted Living Diagnosis: Acute chest wall pain Instructions: CHEST WALL PAIN, Costochondritis Referrals: Kiara Justice, [Primary Care Provider] - 3-5 Days if not improving
[2019-07-11] MEDS: Mag Hydrox/Al Hydrox/Simeth 30 ML UDC PO (18:16)
[2019-07-11 18:18] LABS: Absolute Neutrophil Count 2.7 X10^3/uL (2.0-7.7); Basophil# 0.03 X10^3/uL; Basophil% 0.5 % (0-1); Eosinophil# 0.12 X10^3/uL; Hematocrit 42.9 % (37-47); Hemoglobin 14.8 g/dL (12.0-15.0); Lymphocyte % 44.2 % (19-41); Mean Corp Hgb Conc 34.5 g/dL (32-36); Mean Corpuscular Hgb 32.5 pg (27.0-32.0); Mean Corpuscular Volume 94.1 fL (81-99); Monocyte% 8.2 % (0-10); NRBC Flagged by Analyzer 0 % (0-5); Neutrophil # 2.73 X10^3/uL (2.7-7.7); Neutrophil % 44.6 % (47-70); Platelet Count 219 K/mm3 (150-450); RBC Distribution Width SD 41.2 fl (35.1-43.9); Red Blood Count 4.56 M/mm3 (4.2-5.4); White Blood Count 6.1 K/mm3 (4.4-11.0)
[2019-07-11 18:25] VITALS: BP 137/92; PULSE 68; RESP 16; O2SAT 96
[2019-07-11 18:36] LABS: Anion Gap 7 (5-15); BUN 17 mg/dL (7-18); BUN/Creat Ratio 19.1 RATIO (10-20); Calcium,Total 9.6 mg/dL (8.5-10.1); Chloride 107 mmol/L (98-107); Creatinine, Serum 0.89 mg/dL (0.55-1.02); EST Glomerular Filtration Rate 71 mL/min (>60); Est Glom Filt Rate - Afr Amer 86 mL/min (>60); Estimated Creatinine Clearance 66.54 ml/min; Glucose 92 mg/dL (74-106); Potassium 3.8 mmol/L (3.5-5.1); Sodium Level 141 mmol/L (136-145)
[2019-07-11 19:14] VITALS: BP 138/86; PULSE 71; RESP 19; O2SAT 95
[2019-07-11 20:00] VITALS: BP 123/86; PULSE 74; RESP 16; O2SAT 96
[2019-07-11 20:01] VITALS: BP 123/86; PULSE 72; RESP 18; O2SAT 96
== END 2019-07-11 20:07 | disposition home or self-care (01) ==
PROVIDERS: Emergency Provider Emergency Medicine; Family Provider Internal Medicine; PCP Internal Medicine
DX: R07.89 Other chest pain (principal); Q21.1 Atrial septal defect; M54.42 Lumbago with sciatica, left side; I69.320 Aphasia following cerebral infarction; Z79.02 Long term (current) use of antithrombotics/antiplatelets; Z79.82 Long term (current) use of aspirin; Z91.040 Latex allergy status; Z88.8 Allergy status to other drugs, medicaments and biological substances
CPT/HCPCS: 80048; 84484; 85025; 85379; 93005; 99284; A4216

== ENCOUNTER → 2019-07-19 13:29 | Outpatient (CLI) | payer OTHER, SELFPAY ==
[2019-07-11 17:26] VITALS: BMI 31.7
[2019-07-19 15:44] LABS: Erythrocyte Sedimentation Rate < 1 mm/hr (0-30)
[2019-07-19 16:03] LABS: CRP < 2.90 mg/L (0.0-3.0); Rheumatoid Factor < 10.0 IU/mL (<15); Uric Acid 4.6 mg/dL (2.6-6.0)
[2019-07-23 16:31] LABS: ANTINUCLEAR ANTIBODIES DIRECT Negative (Negative)
== END ==
PROVIDERS: PCP Internal Medicine; Referring Provider Psychiatry & Neurology Neurology
DX: Z86.73 Personal history of transient ischemic attack (TIA), and cerebral infarction without residual deficits (principal)
CPT/HCPCS: 36415; 84550; 85652; 86038; 86140; 86225; 86235; 86431

== ENCOUNTER 2019-07-30 11:30 | Outpatient (RCR) | payer OTHER, SELFPAY ==
[2019-07-08 23:57] VITALS: BMI 29.5
--- NOTE | 2019-07-16 09:59 | HP.SP.AD ---
History - History Date of Eval: 07/16/19 Date of Onset of Diagnosis: 07/06/19 Other Relevant Medical History/Diagnoses/Surgery: Pt to [facility] ED 07/06/19 with complaints of headache, expressive aphasia/reading and writing difficulty, and bilateral upper and lower extremity weakness. MRI revealed subtle acute ischemic changes of left medial temporal lobe and frontal lobe. Pt additionally has diagnosis of sphenoid sinusitis. Complains of dizziness since 07/14/19. Medications related to this diagnosis: Lipitor, Plavix, Aspirin, and Valtrex. 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 Living Arrangements: With Significant Other Patient Allergies - Allergies Allergies latex Allergy (Verified 07/11/19 17:27) Hives meloxicam Allergy (Verified 07/11/19 17:27) Anaphylaxis nickel Allergy (Verified 07/11/19 17:27) Hives esomeprazole [From Nexium] Adverse Reaction (Verified 07/11/19 17:27) Upset Stomach thimerosal Adverse Reaction (Verified 07/11/19 17:27) Angioedema CLQT - CLQT CLQT Administered: Yes CLQT: Cognitive Linguistic Quick Test (CLQT) is a criterion - referenced assessment designed for adults between the ages of 18 and 89 with known or suspected neurological dysfuntions. The CLQT is to assess strength and weaknesses in five cognitive domains. Severity ratings are within normal limits, mild, moderate, severe deficits. The subtests are as follows: Date: 07/16/19 - Language Language: WNL - CLQT Comments Comments Due to time restraints and patient's reported symptoms, the Language Cognitive Domain subtests were administered only. The patient received the following scores: Personal Facts: 8, Criterion Cut Score (CCS): 8. Confrontation Namin, CCS: 10. Story Retellin, CCS: 6. Generative Namin, CCS: 5. All subtest scores were WNL. Other Impressions - Comments Language -: Despite scoring within the normal range on standardized testing, Kathy demonstrates mild expressive aphasia during conversational speech, characterized by bradyphrenia, slowed rate of speech, shortened phrase length, and instances of anomia which worsen with fatigue. She has made significant spontaneous improvement since her acute stay, but would benefit from therapy to further guide improvement on the aforementioned symptoms. Plan - Plan Plan: Skilled speech-language therapy is warranted at this time to improve Kathy's expressive language skills, as deficits in this area impede the patient's ability to clearly and effectively express her wants, needs, thoughts, and ideas in personal and professional environments. - Recommendations Treatment Warranted: Yes - Frequency Frequency: 1x/Week Duration: 6 Weeks - Prognosis Prognosis: Excellent - Goals that are Established: Determination:: Goals will be added/modified as deemed necessary and appropriate. Therapy will be discontinued when results of re-evaluation indicate therapy is no longer needed or lack of progress has been documented. - Goal #1-5 Goal #1: Kathy will independently utilize strategies to improve word-finding in instances of anomia in 90% of opportunities across 3 consecutive sessions. Goal #2: Kathy will demonstrate improved word-finding by independently completing confrontation and generative naming tasks of increasing complexity in less time and with a greater number of responses across 3 consecutive sessions. Education - Patient Instruction Patient Education: Diagnosis, Treatment Plan, Goals Person Taught: Patient, Significant Other
--- NOTE | 2019-07-30 12:57 | HP.SP.DC ---
ST Discharge Summary - Discharged: Discharge: Kathy Flores is discharged from outpatient speech-language therapy effective 07/30/2019. Kathy participated in two therapy sessions following her initial evaluation targeting mild anomic aphasia. She demonstrated independent use of strategies during conversation and improved her word recall on generative and confrontation naming tasks. Please reconsult as necessary.
== END 2019-07-30 19:00 | disposition home or self-care (01) ==
LOC: SP 11:30
PROVIDERS: Family Provider Internal Medicine; PCP Internal Medicine; Referring Provider Nurse Practitioner Family; Visit Provider Nurse Practitioner Family
DX: R47.01 Aphasia (principal); Z86.73 Personal history of transient ischemic attack (TIA), and cerebral infarction without residual deficits
CPT/HCPCS: 92507; 92523

== ENCOUNTER 2019-08-27 21:25 | Observation (INO) | payer OTHER, SELFPAY ==
[2019-08-17 09:22] VITALS: BMI 27.9
[2019-08-27] VITALS (7 sets, daily range): BP systolic 108–143; BP diastolic 76–84; PULSE 64–74; RESP 15–16; TEMP 36.6; O2SAT 95–99; BMI 28.3
--- NOTE | 2019-08-27 22:18 | EKG12_ITS ---
Test Reason : DYSRHYTHMIA Blood Pressure : / mmHG Vent. Rate : 068 BPM Atrial Rate : 068 BPM P-R Int : 152 ms QRS Dur : 078 ms QT Int : 404 ms P-R-T Axes : 064 059 051 degrees QTc Int : 429 ms Normal sinus rhythm Normal ECG Confirmed by ELSA WATTS, LEXIE ([id number]), supervising film or videotape editor ELLI SUTHERLAND ([id number]) on 08/29/2019 1:53:45 PM Referred By: ANGELA Confirmed By:LEXIE HUNTER MD
--- NOTE | 2019-08-27 22:18 | CT_ITS ---
STUDY: CTA HEAD AND NECK WITH CONTRAST REASON FOR EXAM: Female, 53 years old. RT HAND/ARM TINGLING SINCE THIS AM/CVA 07/2019 RADIATION DOSAGE (If Supplied By Facility): CTDIvol = ( 27.68 ) mGy, DLP = ( 1326.00 ) mGycm TECHNIQUE: CT angiography was performed with a multi-detector CT scanner. Data acquisition was obtained from the skull base through the vertex following intravenous administration of Isovue 300 100ml. MIP images were reconstructed from the axial data set. Post-processing of the angiographic images was performed, with multiplanar reformation and 3D reconstruction. Individualized dose optimization techniques were used for this CT. COMPARISON: July 06, 2019 FINDINGS: Normal bilateral petrous carotid arteries. Normal right cavernous carotid artery with a normal supraclinoid bifurcation. Normal left cavernous carotid artery with a normal supraclinoid bifurcation. Normal right A1 segments of the anterior cerebral artery. Normal left A1 segments of the anterior cerebral artery. Normal intact anterior communicating artery (ACOM). Normal bilateral A2 segments of the anterior cerebral arteries. Normal right M1 and M2 segments of the middle cerebral arteries, with a normal M1 bifurcation. Normal left M1 and M2 segments of the middle cerebral arteries, with a normal M1 bifurcation. Normal right posterior communicating artery (PCOM). Normal left posterior communicating artery (PCOM). Normal bilateral vertebral arteries. Normal basilar artery with a normal basilar bifurcation. The visualized bilateral superior cerebellar (SCA) arteries are normal. Normal bilateral P1, P2 and visualized P3 segments of the posterior cerebral arteries. There is no demonstrated aneurysm of the [place]. No acute intracranial hemorrhage identified. There is new area of low-attenuation is noted within the left frontal lobe not seen on prior examination. There is no midline shift. AORTIC ARCH: There is a bovine origin of the great vessels arising from the aortic arch with a common origin of the brachiocephalic and left common carotid artery. Normal origin of the left subclavian artery. RIGHT CAROTID ARTERIES: Normal right common carotid artery (CCA). Normal right common carotid bulb. Normal origin of the right internal carotid (ICA) artery without a hemodynamically significant stenosis. Normal visualized cervical portion of the right internal carotid artery. Normal origin of the right external carotid artery (ECA). LEFT CAROTID ARTERIES: Normal left common carotid artery (CCA). Normal left common carotid bulb. Normal origin of the left internal carotid (ICA) artery without a hemodynamically significant stenosis. Normal visualized cervical portion of the left internal carotid artery. Normal origin of the left external carotid artery (ECA). VERTEBRAL ARTERIES: Normal bilateral vertebral arteries. Multilevel degenerative changes of the spine. Cannot evaluate adequately for fracture due to reason for mass on the coronal and sagittal images. These are nondiagnostic for evaluation of the osseous structures. If there is concern for fracture recommend dedicated CT of the cervical spine. There is no acute displaced fracture identified on the axial images. Low-attenuation within the thyroid with calcifications recommend nonemergent thyroid ultrasound. Nonspecific subcentimeter short axis cervical chain lymph nodes. CT/CTA Head AND Neck W/ Contrast IMPRESSION: Normal CTA Head and neck with contrast. There is a new area of low attenuation noted within the left frontal lobe this was not seen on prior CT scan, age-indeterminate. Patient does report history of CVA July 2019. If there is concern for an acute event correlate with MRI. There is no CT evidence for a large acute territorial infarct. No acute intracranial hemorrhage identified. Electronically Signed: Jose M Hi, at 23:35 EST Tel , Service support ,
--- NOTE | 2019-08-27 22:24 | ED.VISSUMM ---
- ER Visit Summary Date of Service: 08/27/19 Chief Complaint: Right arm tingling and feels slightly weak History of Present Illness: The patient is a 53 F. Prior CVA and high cholesterol. Patient states that she woke up 6:00 this morning forearm felt odd and tingling. This is now been going on about 15 hours. Has not gotten any better. She is normally right-hand dominant. Says her right hand does not feel as strong as it normally would. She denies any ataxia. No visual change. No speech change. She did have a prior stroke with symptoms such as arm weakness and tingling. And also speech abnormality. She denies any weakness or numbness to her lower extremities. Denies any trouble walking. No headache. She is currently on Plavix for a prior stroke. Physical Examination: Middle-aged female accompanied by her vital signs are stable afebrile. H EENT exam normal. Pupils round reactive light. Extra motions are intact. No facial droop. Normal speech. No numbness. Neck nontender. Lungs clear to auscultation bilaterally. Heart regular rhythm rate about 73 no murmur. Abdomen soft and nontender normal bowel sounds no peritoneal signs. Extremities moves all 4. Neurovascular intact. 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 No drift. Fingertip to nose within normal limits. Rapid hand movements within normal limits bilaterally. Normal radial pulse bilaterally. Dorsi plantarflexion intact. Fingertip to nose and [id number] within normal limits. No drift. Back exam unremarkable. Neurologically she is awake and alert with no focal motor deficits. Subjectively she feels like she has numbness in her right arm and weakness but objectively she has 5 out of 5 strength and sensation.. Test Results: CBC normal. Chemistries normal. PT/INR PTT unremarkable. Troponin normal. EKG normal sinus rhythm rate of 68 no acute signs of PR or ischemia. No dysrhythmia. Portable chest x-ray one view no acute abnormality. CT of the brain shows a low attenuation in the left frontal lobe that is new from the last most recent CAT scans. No bleed. CTA head neck otherwise unremarkable. Read by the radiologist. Emergency Department Course and Treatment: No a work-up for possible recurrent stroke. Her exam at this time is benign. Her NIH is 0. Treatment Plan: Repeat exam patient is doing well at 11:59 PM. Exam is unchanged. NIH is 0. I spoke to her neurologist out of [facility]. Patient will be admitted I spoke to our hospitalist. They get an MRI in the morning. Disposition: admit Impression: Subjective right arm weakness and tingling History of prior stroke This note was generated with [employer] dictation software. It may contain incorrect words, spelling, and punctuation that were not noted in review of the chart prior to signing ED Disposition - Plan for ED Patient: Referrals: Kiara Justice DO [Primary Care Provider] -
[2019-08-27 22:35] LABS: Bedside Glucose 93 mg/dL (70-110)
[2019-08-27 22:41] LABS: Absolute Lymphocyte Count 2.91 X10^3/uL (0.83-4.51); Absolute Neutrophil Count 2.1 X10^3/uL (2.0-7.7); Basophil# 0.02 X10^3/uL; Basophil% 0.4 % (0-1); Eosinophil# 0.11 X10^3/uL; Hematocrit 41.2 % (37-47); Hemoglobin 13.9 g/dL (12.0-15.0); Lymphocyte # 2.91 X10^3/ul (4.0); Lymphocyte % 52.2 % (19-41); Mean Corp Hgb Conc 33.7 g/dL (32-36); Mean Corpuscular Hgb 32.2 pg (27.0-32.0); Mean Corpuscular Volume 95.4 fL (81-99); Mean Platelet Vol. 11.2 fl (6.2-12.0); Monocyte% 7.2 % (0-10); NRBC Flagged by Analyzer 0 % (0-5); Neutrophil # 2.13 X10^3/uL (2.7-7.7); Platelet Count 197 K/mm3 (150-450); RBC Distribution Width CV 11.7 % (11.6-14.6); RBC Distribution Width SD 40.5 fl (35.1-43.9); Red Blood Count 4.32 M/mm3 (4.2-5.4); White Blood Count 5.6 K/mm3 (4.4-11.0)
[2019-08-27 22:45] LABS: Prothrombin Time (Protime)PT. 13.3 SECONDS (11.7-14.9)
[2019-08-27 22:46] LABS: Partial Thromboplast Time 26.4 Seconds (24.1-36.2)
--- NOTE | 2019-08-27 22:48 | RAD_ITS ---
STUDY: X-RAY CHEST REASON FOR EXAM: Female, 53 years old. PT STATES HER RIGHT HAND AND ARM ARE TINGLING AND NUMB WHEN SHE WOKE UP THIS MORNING. STATES IT IS STARTING TO HAPPEN AGAIN AROUND 2029. HAS A HX OF STROKE IN JUL WITH THE SAME TYPE SYMPTOMS. TECHNIQUE: Single frontal view of the chest. COMPARISON: July 06, 2019 FINDINGS: The lungs are clear and expanded. There is no demonstrated pleural abnormality. Normal size heart. Normal mediastinum and terry. Normal visualized pulmonary arteries. Normal visualized aortic arch and descending thoracic aorta. Normal visualized thoracic spine. Normal visualized ribs, clavicles, and shoulders. There is no demonstrated abnormality of the visualized soft tissue structures of the upper abdomen. RAD/Chest 1 View IMPRESSION: Normal x-ray examination of the chest. Electronically Signed: Jose M Hi, at 23:10 EST Tel , Service support ,
[2019-08-27 22:53] LABS: Anion Gap 5 (5-15); BUN 12 mg/dL (7-18); Calcium,Total 9.1 mg/dL (8.5-10.1); Chloride 107 mmol/L (98-107); Creatinine, Serum 0.86 mg/dL (0.55-1.02); EST Glomerular Filtration Rate 74 mL/min (>60); Est Glom Filt Rate - Afr Amer 89 mL/min (>60); Estimated Creatinine Clearance 68.86 ml/min; Glucose 94 mg/dL (74-106); Potassium 4.2 mmol/L (3.5-5.1); Sodium Level 142 mmol/L (136-145)
--- NOTE | 2019-08-27 23:56 | ED.RN ---
PATIENT STATES TINGLING IN RIGHT ARM IS IMPROVING AND IS BARELY THERE.
[2019-08-28] VITALS (7 sets, daily range): BP systolic 103–118; BP diastolic 56–68; PULSE 56–78; RESP 14–17; TEMP 36.3–36.6; O2SAT 93–97; BMI 27.8
--- NOTE | 2019-08-28 00:10 | PCM.HP.STD ---
Problem List (1) History of stroke Status: Chronic (2) Arm paresthesia, right Status: Acute (3) History of tonsillectomy Status: Resolved (4) H/O: hysterectomy Status: Resolved History of Present Illness Date of Admission: 08/28/19 Chief Complaint: right arm numbness The patient is a 53 year old female patient with a history of cerebrovascular accident early July 2019 presents to the emergency room after 15 hours onset of symptoms of right arm numbness and tingling. She states she woke up at about 6:00 AM this morning with her right arm completely numb and felt that she had slept on it funny, however, throughout the day continued and never got better so this evening she decided to seek medical attention with concerned that she may be having another stroke, no other neurologic deficits are reported in history. Patient has no dysarthria no lack of arm movement or leg movement. She did however report when eating some applesauce this evening feeling a little difficulty with swallowing. CT report shows low attenuation in the left frontal lobe area which is likely due to previous event,however, due to previous history and current symptoms of paresthesia in the right upper extremity she will be admitted overnight for observation and MRI in the morning to rule out new stroke. She denies any chest pain shortness of breath fever chills no nausea vomiting or diarrhea. Of note the patient has had cardiac work-up done by Dr. Laguerre and is scheduled to have a stress test later this week along with a CT calcium study of her chest for heart disease. She has had a loop recorder on and has had no evidence of A. fib at this point. Past Medical History Past Medical History (Chronic Problems): Chronic Problems (Last Reviewed 08/17/19 @ 09:[address] 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 Theo Laguerre MD) Ischemic stroke (Chronic) I63.9 Allergies latex Allergy (Verified 07/11/19 17:27) Hives meloxicam Allergy (Verified 07/11/19 17:27) Anaphylaxis nickel Allergy (Verified 07/11/19 17:27) Hives esomeprazole [From Nexium] Adverse Reaction (Verified 07/11/19 17:27) Upset Stomach thimerosal Adverse Reaction (Verified 07/11/19 17:27) Angioedema Home Medications: Ambulatory Orders Medication Instructions Recorded Valacyclovir HCl [Valtrex] 500 mg PO DAILY 05/09/18 Acetaminophen [Tylenol Arthritis] 650 mg PO Q4H PRN PRN 07/06/19 Cholecalciferol (Vitamin D3) 2,000 unit PO DAILY 07/06/19 [Vitamin D3] Fish Oil/Dha/Epa [Fish Oil 1,200 2 cap PO QHS 07/06/19 mg Fish Oil] Iodine [Kelp] 1,200 mcg PO DAILY 07/06/19 L.acidoph,Paracasei, B.lactis 1 cap PO DAILY 07/06/19 [Probiotic] Multivitamins,Therapeutic 1 tab PO DAILY 07/06/19 [Multivitamin] Vitamin B Complex [B Complex] 1 tab PO DAILY 07/06/19 Aspirin [Aspirin, Baby] 81 mg PO DAILY@0800 #60 tab.chew 07/09/19 Atorvastatin Calcium [Lipitor] 80 mg PO QHS #60 tab 07/09/19 Calcium Carb/D3/Magnesium/Zinc 2 ea PO QHS 07/11/19 [Okfjkev-Bxt-Ndwh-Vit D Tablet] Vitamin E Mixed [Vitamin E] 400 unit PO QHS 07/11/19 metoprolol succinate 25 mg 25 mg PO DAILY #30 tab 08/02/19 tablet,extended release 24 hr clopidogrel 75 mg tablet 75 mg PO DAILY #60 tab 08/17/19 Surgical History: Surgical History (Last Reviewed 08/17/19 @ 09:[address] Teho Laguerre MD) History of tonsillectomy (Resolved) Z90.89 H/O: hysterectomy (Resolved) Z90.710 S/P left knee arthroscopy (Resolved) Z98.890 x2 Surgical History: - - Left labrum tear repair, 2 left knee scopes, hysterectomy, tonsillectomy. Psychiatric History: No pertinent psych hx COOPERATIVE MANAGER History: No pertinent COOPERATIVE MANAGER history Smoking Status: Never smoker - *Family History Maternal Family History: Family History (Last Reviewed 08/17/19 @ 09:[address] Theo Laguerre MD) Father Myocardial infarction History Items: - - Low sodium, thyroid issues Paternal Family History: Family History (Last Reviewed 08/17/19 @ 09:[address] Theo Laguerre MD) Father Myocardial infarction History Items: Heart Disease Review of Systems Constitutional: Denies: Chills, Fever, Weight Change HEENT: Denies: Head Aches, Sinus Congestion, Sinus Drainage Cardiovascular: Denies: Chest Pain, Palpitations Respiratory: Denies: Cough, Shortness of breath at rest, Sputum production Gastrointestinal: Denies: Abdominal Pain, Nausea, Vomiting Genitourinary: Denies: Dysuria Musculoskeletal: Denies: Joint Pain, Joint Tenderness Skin: Denies: Rash, Wounds Neurological: Reports: Numbness - right arm, Tingling - right arm. Denies: Focal weakness Psychiatric: Denies: Anxiety, Depression, Homicidal Ideations, Suicidal Ideations Hematologic/ Lymphatic: Denies: Easy Bruising, Easy Bleeding VTE Information - Inpt Only VTE Present on Admission: No VTE Mechan Device Prophylaxis: None VTE Pharm Prophylaxis ordered?: No Patient Problems: Active and Suspected Problems (Last Reviewed 08/17/19 @ 09:[address] Theo Laguerre MD) Arm paresthesia, right (Acute) - Physical Exam Vitals/I&O's: Vital Signs Temp Pulse Resp BP Pulse Ox 97.8 F 74 16 112/76 96 08/27/19 21:26 08/27/19 23:26 08/27/19 23:26 08/27/19 23:26 08/27/19 23:26 Oxygen Delivery Method Room Air Weight: 170 lb Body Mass Index (BMI) 28.3 Finger Stick Blood Glucose 93 General: Alert, Oriented x3, Cooperative HEENT: Atraumatic, PERRLA, EOMI, Normocephalic Neck: Supple, No JVD Lungs: Clear to auscultation, Normal air movement, No rhonchi, No wheeze, No rales Cardiovascular: Regular rate, Regular Rhythm, Normal S1, Normal S2, No murmurs Abdomen: Bowel Sounds Present, Soft, Non Tender Extremities: No edema, Capillary Refill Less than 3 Seconds Skin: No rashes, No breakdown Musculoskeletal: No Tenderness to Palpation of Joints or Extremities Neurological: Cranial nerves II-XII grossly intact, Motor Exam 5/5 strength throughout, - - right arm numb compared to left but range of motion and strength are intact Psych/Mental Status: Normal Affect, Appropriate Laboratory Results 08/27/19 22:24: WBC 5.6, RBC 4.32, Hgb 13.9, Hct 41.2, MCV 95.4, MCH 32.2 H, MCHC 33.7, RDW Std Deviation 40.5, RDW Coeff of Gabriel 11.7, Plt Count 197, MPV 11.2, Immature Gran % (Auto) 0.200, Neut % (Auto) 38.0 L, Lymph % (Auto) 52.2 H, [place] % (Auto) 7.2, Eos % (Auto) 2.0, Baso % (Auto) 0.4, Absolute Neuts (auto) 2.1, Absolute Lymphs (auto) 2.91, Nucleated RBC % 0 08/27/19 22:24: PT 13.3, INR 1.0, APTT 26.4 08/27/19 22:24: Sodium 142, Potassium 4.2, Chloride 107, Carbon Dioxide 30.0, Anion Gap 5, BUN 12, Creatinine 0.86, Estim Creat Clear Calc 68.86, Est GFR (MDRD) Af Amer 89, Est GFR (MDRD) Non-Af 74, BUN/Creatinine Ratio 14.0, Glucose 94, Calcium 9.1, Troponin I < 0.015 08/27/19 22:32: POC Glucose 93 Assessment/Plan All Active Problems (Last Reviewed 08/17/19 @ 09:[address] Theo Laguerre MD) Arm paresthesia, right (Acute) History of tonsillectomy (Resolved) H/O: hysterectomy (Resolved) S/P left knee arthroscopy (Resolved) Paresthesia of left arm (Acute) Lt facial numbness (Acute) Cephalgia (Acute) Word finding difficulty (Acute) Chronic Problems (Last Reviewed 08/17/19 @ 09:[address] 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 Right arm paresthesia recent history for CVA?admit for observation to progressive care unit neurological evaluations per protocol, order MRI as requested in the morning. Continue statin medication and aspirin 2. DVT prophylaxis?low molecular weight heparin Code Visit OBSV E&M: [id number] Initial observation care L2
--- NOTE | 2019-08-28 07:38 | MRI_ITS ---
STUDY: MRI BRAIN WITHOUT CONTRAST REASON FOR EXAM: Female, 53 years old. CVA, RIGHT arm numbness, prior stroke July 2019 COMPARISON: Previous MRIs obtained on 07/06/2019 TECHNIQUE: An MRI was performed utilizing axial diffusion and ADC map images followed by axial T2 and FLAIR and gradient echo images followed by sagittal and axial T1 weighted images. Coronal T2-weighted imaging through the head was also obtained. FINDINGS: The diffusion weighted axial images and ADC map images of the head show some mild restricted diffusion seen in the inferior left frontal gyrus representing a subacute infarct. The sandra, medulla and midbrain and cerebellum appear to be normal. The ventricles and sulci are normal in size and shape. The cerebral hemispheres show a subacute cortical infarct involving the inferior left frontal gyrus with surrounding gliosis.The basal ganglia appear to be normal. The gradient echo axial images are normal. No evidence of a Chiari I malformation is identified. The V4 segments of the vertebral artery, the basilar artery, the posterior cerebral arteries, and cavernous and supraclinoid portions of the internal carotid arteries appear to be normal. The M1 segments of the middle cerebral arteries are all normal The orbits including the optic nerves and optic chiasm appear normal. The pituitary and pituitary infundibulum appear to be normal. The inner and outer tables of the skull are normal The frontal, ethmoid, maxillary, and sphenoid sinuses are normal. The mastoid air cells are normal. MRI/Brain without Contrast IMPRESSION: A subacute ischemic cortical infarct is noted involving the inferior left frontal gyrus. This represents a resolving infarct which was previously noted. Electronically Signed: Santi Caruso, at 10:23 EST Tel , Service support ,
--- NOTE | 2019-08-28 07:38 | MRI_ITS ---
STUDY: MRI CERVICAL SPINE WITHOUT CONTRAST REASON FOR EXAM: Female, 53 years old. CVA, RIGHT arm numbness, prior stroke July 2019 COMPARISON: Previous MRI of the cervical spine obtained on 07/06/2019, previous CT of the head and neck obtained on 07/06/2019 TECHNIQUE: An MRI of the cervical spine was performed utilizing T1, T2 and Stir weighted images followed by axial T2 and T1-weighted images. FINDINGS: C2-C3: The intervertebral disc and neural foramina are normal bilaterally. C3-C4: The intervertebral disc and neural foramina are normal bilaterally. C4-C5: A mild bulging disc with endplate spurring is noted at this location with no evidence of disc herniation or spinal stenosis and the neural foramina appear normal bilaterally. This is unchanged. C5-C6:: A mild bulging disc with endplate spurring is noted at this location with no evidence of disc herniation or spinal stenosis and the neural foramina appear normal bilaterally. This is unchanged. C6-C7:: A mild bulging disc with endplate spurring is noted at this location with no evidence of disc herniation or spinal stenosis and the neural foramina appear normal bilaterally. This is unchanged. C7-T1:The intervertebral disc and neural foramina are normal bilaterally. Cervical spinal cord: The cervical spinal cord appears to be normal. No evidence of a Chiari I malformation is seen. Cervical spine: The cervical vertebral bodies appear to be normal and are in good position and alignment. Mild facet arthropathy is noted to C4-5 and C5-6 levels bilaterally which is unchanged. The cervical soft tissues appear to be normal. MRI/Spine Cervical (Routine) IMPRESSION: Mild cervical spondylosis is noted in the mid cervical spine with mildly bulging disc spur complexes noted at the C4-5, C5-6 and C6-7 levels with no evidence of disc herniation or spinal stenosis. MRI of the cervical spine is unchanged from the previous study of 07/06/2019. Electronically Signed: Santi Caruso, at 11:52 EST Tel , Service support ,
[2019-08-28] MEDS: Enoxaparin 40 MG/0.4 ML Syringe SC (09:59)
[2019-08-28] MEDS: Clopidogrel Bisulfate 75 MG Tablet PO (09:59)
[2019-08-28] MEDS: Aspirin 81 MG TAB.CHEW PO (09:59)
--- NOTE | 2019-08-28 10:11 | NURSING ---
NIH and VS late d/t pt being at MRI
--- NOTE | 2019-08-28 10:25 | VDLE_ITS ---
Reason For Study: Pain RIGHT LEFT GSV is normal. GSV is normal. CFV is compressible, spontaneous, phasic, CFV is compressible, spontaneous, phasic, competent and demonstrates normal competent, and demonstrates normal augmentation. augmentation. FV is compressible, spontaneous, phasic, FV is compressible, spontaneous, phasic, competent and demonstrates normal competent and demonstrates normal augmentation. augmentation. POP V is compressible, spontaneous, phasic, POP V is compressible, spontaneous, phasic, competent and demonstrates normal competent and demonstrates normal augmentation. augmentation. T/P Trunk is compressible. T/P Trunk is compressible. PTV is compressible. PTV is compressible. RT PerV is compressible. LT PerV is compressible. Procedure Exam performed portable in patient room. A preliminary report was called and/or faxed to [employer] [employer]. Interpretation Summary No evidence for acute deep venous thrombosis bilateral lower extremities with patent and compressible bilateral great saphenous veins. Ordering Physician: Gómez Paulino Referring Physician: Kiara Justice M.D. Performed By: Estrella Mccall RVT
--- NOTE | 2019-08-28 11:50 | DCINST_ITS ---
- Discharge Diagnoses Current Active Problems: Current Active and Chronic Problems (Last Reviewed 08/17/19 @ 09:[address] Theo Laguerre MD) History of stroke (Chronic) Arm paresthesia, right (Acute) You will use the following diet at home:: Cardiac Your food should be the consistency of: Regular Your liquids should be the consistency of: Regular/Thin Discharge Activity: Return to Normal Activity Allergies/Adverse Reactions: Allergies latex Allergy (Verified 07/11/19 17:27) Hives meloxicam Allergy (Verified 07/11/19 17:27) Anaphylaxis nickel Allergy (Verified 07/11/19 17:27) Hives esomeprazole [From Nexium] Adverse Reaction (Verified 07/11/19 17:27) Upset Stomach thimerosal Adverse Reaction (Verified 07/11/19 17:27) Angioedema Medications to take at Discharge Valacyclovir HCl [Valtrex] 500 mg PO DAILY 05/09/18 Acetaminophen [Tylenol Arthritis] 650 mg PO Q4H PRN PRN 07/06/19 Cholecalciferol (Vitamin D3) [Vitamin D3] 2,000 unit PO DAILY 07/06/19 Fish Oil/Dha/Epa [Fish Oil 1,200 mg Fish Oil] 1 cap PO QHS 07/06/19 Iodine [Kelp] 1,200 mcg PO DAILY 07/06/19 L.acidoph,Paracasei, B.lactis [Probiotic] 1 cap PO DAILY 07/06/19 Multivitamins,Therapeutic [Multivitamin] 1 tab PO DAILY 07/06/19 Vitamin B Complex [B Complex] 1 tab PO DAILY 07/06/19 Aspirin [Aspirin, Baby] 81 mg PO DAILY@0800 #60 tab.chew 07/09/19 Atorvastatin Calcium [Lipitor] 80 mg PO QHS #60 tab 07/09/19 Calcium Carb/D3/Magnesium/Zinc [Yrfkzqw-Esl-Wyat-Vit D Tablet] 2 ea PO QHS 07/11/19 Vitamin E Mixed [Vitamin E] 400 unit PO QHS 07/11/19 metoprolol succinate 25 mg tablet,extended release 24 hr 25 mg PO DAILY #30 tab 08/02/19 clopidogrel 75 mg tablet 75 mg PO DAILY #60 tab 08/17/19 Budesonide [Rhinocort Allergy] 2 sprays NS DAILY 08/28/19 Clotrimazole [Mycelex] 10 mg MUCOUS MEM 5X/DAY 08/28/19 Primary Care Physician: Kiara Justice DO [Primary Care Provider] - Please follow up with your Primary Care Physician in: 1-2 weeks Test Results: Test results from this visit will be discussed in further detail at your follow- up appointment, if applicable. Please Follow Up With: Your neurologist When: 1-2 weeks Proposed Discharge Date: 08/28/19
--- NOTE | 2019-08-28 13:20 | PCM.DC.SUM ---
<Gómez Paulino - Last Filed: 08/28/19 13:20> Discharge Date and Diagnosis - Problem List Patient Problems: Active and Suspected Problems (Last Reviewed 08/17/19 @ 09:[address] Theo Laguerre MD) Arm paresthesia, right (Acute) Date of Admission: 08/28/19 Date of Discharge: 08/28/19 - Primary Discharge Diagnosis Active and Suspected Problems (Last Reviewed 08/17/19 @ 09:[address] 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 This represents a resolving infarct which was previously noted. MRI/Spine Cervical (Routine) IMPRESSION: Mild cervical spondylosis is noted in the mid cervical spine with mildly bulging disc spur complexes noted at the C4-5, C5-6 and C6-7 levels with no evidence of disc herniation or spinal stenosis. MRI of the cervical spine is unchanged from the previous study of 07/06/2019. CT/CTA Head AND Neck W/ Contrast IMPRESSION: Normal CTA Head and neck with contrast. There is a new area of low attenuation noted within the left frontal lobe this was not seen on prior CT scan, age-indeterminate. Patient does report history of CVA July 2019. If there is concern for an acute event correlate with MRI. There is no CT evidence for a large acute territorial infarct. No acute intracranial hemorrhage identified. Operations: None Procedures: None Summary of Care Provided: Hospital course: The patient is a 53 year old F with past medical history of recent stroke, frontotemporal, who presented the emergency room with complaints of new onset of right-sided paresthesias in her upper extremity. She woke up with these at about 6 AM and they persisted throughout the day. She came to the emergency room at the suggestion by her neurologist in [place]. In the emergency room she had a CTA of the head and neck which did not really reveal any significant stenosis, there is a new area of low attenuation noted in the left frontal lobe that was not seen before however was possibly related to her old stroke. She was admitted for stroke work-up. Her symptoms gradually improved however are still somewhat persistent tho I could not detect any sensation abnormalities on exam. She underwent an MRI of the brain which did not show any new stroke. MRI of the C-spine was obtained and did not show any new changes compared to prior. Blood work was unremarkable, troponin I is negative, she had no events on telemetry overnight. She had recently had an outpatient classroom monitor which showed some sinus arrhythmia however no atrial fibrillation. She had also recently had a transesophageal echocardiogram with cardiology who did show that she has a PFO. She has had some underlying intermittent left calf pain, a venous ultrasound was ordered, pending at this time. For stroke was ruled out she was advised to follow-up with her own neurologist in 1-2 weeks. She is already on dual antiplatelet therapy and high-dose statin which we have advised her to continue. She was discharged home in stable condition. She will also need to follow-up with her PCP in 1 to 2 weeks. This patient was seen by Gómez Paulino PA-C under the supervision of Doctor Berumen. [] Patient Problems: Active and Suspected Problems (Last Reviewed 08/17/19 @ 09:[address] Theo Laguerre MD) Arm paresthesia, right (Acute) - Physical Exam Vitals/I&O's: Vital Signs Temp Pulse Resp BP Pulse Ox 97.7 F L 62 16 103/67 97 08/28/19 09:54 08/28/19 09:54 08/28/19 09:54 08/28/19 09:54 08/28/19 09:54 Oxygen Delivery Method Room Air Weight: 167 lb 5.294 oz Body Mass Index (BMI) 27.8 Finger Stick Blood Glucose 93 Intake and Output for Last 24 Hours 08/26/19 08/27/19 08/28/19 23:59 23:59 23:59 Intake Total 300 / 300 Balance 300 / 300 General: Alert, Oriented x3, Cooperative HEENT: Atraumatic, PERRLA, EOMI, Normocephalic Neck: Supple, No JVD, Negative Carotid Bruits Lungs: Clear to auscultation, Normal air movement Cardiovascular: Regular rate, No murmurs Abdomen: Bowel Sounds Present, Soft, Non Tender Extremities: No edema, Capillary Refill Less than 3 Seconds Skin: No rashes, No breakdown Musculoskeletal: No Tenderness to Palpation of Joints or Extremities, - - negative spurling Neurological: Cranial nerves II-XII grossly intact, - - Sensation intact bilateral upper extremities, normal graphesthesia. Psych/Mental Status: Normal Affect, Appropriate, Alert and oriented to time, place, person, mood and affect Laboratory Results 08/27/19 22:24: WBC 5.6, RBC 4.32, Hgb 13.9, Hct 41.2, MCV 95.4, MCH 32.2 H, MCHC 33.7, RDW Std Deviation 40.5, RDW Coeff of Gabriel 11.7, Plt Count 197, MPV 11.2, Immature Gran % (Auto) 0.200, Neut % (Auto) 38.0 L, Lymph % (Auto) 52.2 H, Sedgwick % (Auto) 7.2, Eos % (Auto) 2.0, Baso % (Auto) 0.4, Absolute Neuts (auto) 2.1, Absolute Lymphs (auto) 2.91, Nucleated RBC % 0 08/27/19 22:24: PT 13.3, INR 1.0, APTT 26.4 08/27/19 22:24: Sodium 142, Potassium 4.2, Chloride 107, Carbon Dioxide 30.0, Anion Gap 5, BUN 12, Creatinine 0.86, Estim Creat Clear Calc 68.86, Est GFR (MDRD) Af Amer 89, Est GFR (MDRD) Non-Af 74, BUN/Creatinine Ratio 14.0, Glucose 94, Calcium 9.1, Troponin I < 0.015 08/27/19 22:32: POC Glucose 93 Current Medications Acetaminophen (Tylenol) 650 mg PO Q4H PRN PRN PRN Reason: Pain (1-04/12) or Fever Aspirin (Aspirin, Baby) 81 mg PO DAILY@0800 [facility] Last Admin: 08/28/19 09:59 Dose: 81 mg Documented by: Atorvastatin Calcium (Lipitor) 80 mg PO QHS [facility] Clopidogrel Bisulfate (Plavix) 75 mg PO DAILY [facility] Last Admin: 08/28/19 09:59 Dose: 75 mg Documented by: Enoxaparin Sodium (Lovenox) 40 mg SC DAILY [facility] Last Admin: 08/28/19 09:59 Dose: 40 mg Documented by: Sodium Chloride () 10 - 40 ml IV UD PRN PRN Reason: SALINE FLUSH Discharge Diet: Low fat/ Low Cholesterol Discharge Activity: Return to Normal Activity Home Medications: Medications to take at Discharge Valacyclovir HCl [Valtrex] 500 mg PO DAILY 05/09/18 Acetaminophen [Tylenol Arthritis] 650 mg PO Q4H PRN PRN 07/06/19 Cholecalciferol (Vitamin D3) [Vitamin D3] 2,000 unit PO DAILY 07/06/19 Fish Oil/Dha/Epa [Fish Oil 1,200 mg Fish Oil] 1 cap PO QHS 07/06/19 Iodine [Kelp] 1,200 mcg PO DAILY 07/06/19 L.acidoph,Paracasei, B.lactis [Probiotic] 1 cap PO DAILY 07/06/19 Multivitamins,Therapeutic [Multivitamin] 1 tab PO DAILY 07/06/19 Vitamin B Complex [B Complex] 1 tab PO DAILY 07/06/19 Aspirin [Aspirin, Baby] 81 mg PO DAILY@0800 #60 tab.chew 07/09/19 Atorvastatin Calcium [Lipitor] 80 mg PO QHS #60 tab 07/09/19 Calcium Carb/D3/Magnesium/Zinc [Kehbfxl-Dfa-Glhz-Vit D Tablet] 2 ea PO QHS 07/11/19 Vitamin E Mixed [Vitamin E] 400 unit PO QHS 07/11/19 metoprolol succinate 25 mg tablet,extended release 24 hr 25 mg PO DAILY #30 tab 08/02/19 clopidogrel 75 mg tablet 75 mg PO DAILY #60 tab 08/17/19 Budesonide [Rhinocort Allergy] 2 sprays NS DAILY 08/28/19 Clotrimazole [Mycelex] 10 mg MUCOUS MEM 5X/DAY 08/28/19 Primary Care Physician: Kiara Justice DO [Primary Care Provider] - Please follow up with your Primary Care Physician in: 1-2 weeks Please Follow Up With: Your neurologist When: 1-2 weeks Disposition: Home Minutes spent on discharge:: 40 Patient Condition:: Stable Medical Necessity - Tobacco Use Smoking Status: Never smoker Meaningful Use Info Meaningful Use Diagnoses (Choose all that apply): None applicable <Mando Berumen - Last Filed: 08/28/19 13:47> Discharge Date and Diagnosis - Primary Discharge Diagnosis Active and Suspected Problems (Last Reviewed 08/17/19 @ 09:[address] Theo Laguerre MD) Arm paresthesia, right (Acute) - Secondary Discharge Diagnosis Chronic Problems (Last Reviewed 08/17/19 @ 09:[address] 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 I have independently interviewed and examined the patient and reviewed pertinent historical, laboratory, and other data. Please refer to Gómez Paulino PA-C note for details of this patient's presentation, findings, and recommendations. I have reviewed Gómez Paulino PA-C note and concur with documented findings. In brief, patient is a 83-year-old lady with previous CVA who presented with right sided paresthesias mainly in her upper extremity. Patient was admitted to a monitored bed for subsequent management. MRI obtained demonstrated subacute CVA at the site of her previous CVA. MRI of the C-spine did not demonstrate any new changes. Patient paresthesias did improve during her hospital stay discharged home instructed to follow-up with PCP for subsequent care Hospital course: As documented above - Physical Exam Vitals/I&O's: Vital Signs Temp Pulse Resp BP Pulse Ox 97.7 F L 62 16 103/67 97 08/28/19 09:54 08/28/19 09:54 08/28/19 09:54 08/28/19 09:54 08/28/19 09:54 Oxygen Delivery Method Room Air Weight: 75.9 kg Body Mass Index (BMI) 27.8 Finger Stick Blood Glucose 93 Intake and Output for Last 24 Hours 08/26/19 08/27/19 08/28/19 23:59 23:59 23:59 Intake Total 300 / 300 Balance 300 / 300 Laboratory Results 08/27/19 22:24: WBC 5.6, RBC 4.32, Hgb 13.9, Hct 41.2, MCV 95.4, MCH 32.2 H, MCHC 33.7, RDW Std Deviation 40.5, RDW Coeff of Gabriel 11.7, Plt Count 197, MPV 11.2, Immature Gran % (Auto) 0.200, Neut % (Auto) 38.0 L, Lymph % (Auto) 52.2 H, Sedgwick % (Auto) 7.2, Eos % (Auto) 2.0, Baso % (Auto) 0.4, Absolute Neuts (auto) 2.1, Absolute Lymphs (auto) 2.91, Nucleated RBC % 0 08/27/19 22:24: PT 13.3, INR 1.0, APTT 26.4 08/27/19 22:24: Sodium 142, Potassium 4.2, Chloride 107, Carbon Dioxide 30.0, Anion Gap 5, BUN 12, Creatinine 0.86, Estim Creat Clear Calc 68.86, Est GFR (MDRD) Af Amer 89, Est GFR (MDRD) Non-Af 74, BUN/Creatinine Ratio 14.0, Glucose 94, Calcium 9.1, Troponin I < 0.015 08/27/19 22:32: POC Glucose 93 Current Medications Acetaminophen (Tylenol) 650 mg PO Q4H PRN PRN PRN Reason: Pain (-04/12) or Fever Aspirin (Aspirin, Baby) 81 mg PO DAILY@0800 [facility] Last Admin: 08/28/19 09:59 Dose: 81 mg Documented by: Atorvastatin Calcium (Lipitor) 80 mg PO QHS [facility] Clopidogrel Bisulfate (Plavix) 75 mg PO DAILY [facility] Last Admin: 08/28/19 09:59 Dose: 75 mg Documented by: Enoxaparin Sodium (Lovenox) 40 mg SC DAILY [facility] Last Admin: 08/28/19 09:59 Dose: 40 mg Documented by: Sodium Chloride () 10 - 40 ml IV UD PRN PRN Reason: SALINE FLUSH Code Visit OBSV E&M: 46776 Observation care discharge
--- NOTE | 2019-08-28 14:57 | PHA.DC.MR ---
Pharmacy Service has performed discharge medication reconciliation for this patient. No new medications issued at time of discharge medication review. Medications reviewed are from previously reported home medications. The patient's discharge medication list was reviewed for discrepancies and discrepancies were resolved. Home Medications Valacyclovir HCl [Valtrex] 500 mg PO DAILY 05/09/18 Acetaminophen [Tylenol Arthritis] 650 mg PO Q4H PRN PRN 07/06/19 Cholecalciferol (Vitamin D3) [Vitamin D3] 2,000 unit PO DAILY 07/06/19 Fish Oil/Dha/Epa [Fish Oil 1,200 mg Fish Oil] 1 cap PO QHS 07/06/19 Iodine [Kelp] 1,200 mcg PO DAILY 07/06/19 L.acidoph,Paracasei, B.lactis [Probiotic] 1 cap PO DAILY 07/06/19 Multivitamins,Therapeutic [Multivitamin] 1 tab PO DAILY 07/06/19 Vitamin B Complex [B Complex] 1 tab PO DAILY 07/06/19 Aspirin [Aspirin, Baby] 81 mg PO DAILY@0800 #60 tab.chew 07/09/19 Atorvastatin Calcium [Lipitor] 80 mg PO QHS #60 tab 07/09/19 Calcium Carb/D3/Magnesium/Zinc [Ufomxfz-Ckj-Nofw-Vit D Tablet] 2 ea PO QHS 07/11/19 Vitamin E Mixed [Vitamin E] 400 unit PO QHS 07/11/19 metoprolol succinate 25 mg tablet,extended release 24 hr 25 mg PO DAILY #30 tab 08/02/19 clopidogrel 75 mg tablet 75 mg PO DAILY #60 tab 08/17/19 Budesonide [Rhinocort Allergy] 2 sprays NS DAILY 08/28/19 Clotrimazole [Mycelex] 10 mg MUCOUS MEM 5X/DAY 08/28/19
== END 2019-08-28 11:50 | disposition home or self-care (01) ==
LOC: ED 22:20 → PCU 08-28 00:47
PROVIDERS: Admitting Provider Family Medicine; Emergency Provider Emergency Medicine; PCP Internal Medicine; Visit Provider Internal Medicine
DX: R20.2 Paresthesia of skin (principal); E78.00 Pure hypercholesterolemia, unspecified; Z79.899 Other long term (current) drug therapy; Z86.73 Personal history of transient ischemic attack (TIA), and cerebral infarction without residual deficits; Z79.02 Long term (current) use of antithrombotics/antiplatelets; Z79.82 Long term (current) use of aspirin; M50.30 Other cervical disc degeneration, unspecified cervical region; G89.29 Other chronic pain; M54.42 Lumbago with sciatica, left side; M79.662 Pain in left lower leg
CPT/HCPCS: 70496; 70498; 70551; 71045; 72141; 80048; 82962; 84484; 85025; 85610; 85730; 92610; 93005; 93970; 96372; 99218; 99283; Q9967; A4216; G0378

== ENCOUNTER → 2019-08-30 10:29 | Outpatient (CLI) | payer OTHER, SELFPAY ==
[2019-08-17 09:22] VITALS: BMI 27.9
[2019-08-28 00:36] VITALS: BMI 27.8
--- NOTE | 2019-08-30 10:33 | STEWCON_ITS ---
Reason For Study: Chest Pain Stress Results Protocol: Dobutamine Stress With Definity Maximum Predicted HR: 168 bpm Target HR: 143 bpm % Maximum Predicted HR: 89 % DurationHeart Rate Stage (mm:ss) (bpm) BP Comment Baseline 56 127/76No Chest Pain; 5 ML Diluted Definity DSE 10 MCG 3:00 72 118/76No Chest Pain DSE 20 MCG 3:00 111 111/74No Chest Pain DSE 30 MCG 3:00 129 109/45No Chest Pain DSE 40 MCG 2:14 150 142/70No Chest Pain Recovery 86 119/70No Chest Pain Stress Duration: 11:14 mm:ss Maximum Stress HR: 150 bpm METS: 1 Baseline Echocardiogram Findings Stress Echo Wall motion Data Resting WM Intermediate WM Stress WM Interpretation Summary Dobutamine stress echocardiogram. Stress EKG. Resting EKG demonstrates normal sinus rhythm with a rate of 67 bpm normal intervals are noted resting blood pressure is 127/76 mmHg. Dobutamine was infused starting at 10 mcg/kg/min increasing to a peak of 40 mcg/kg/min. The patient maintained sinus rhythm throughout the recording. At rest there were no ST or T wave changes noted suggest ischemia at peak infusion there were no ST or T wave changes noted to suggest ischemia. The maximum heart rate was 151 bpm which was 89% of maximum predicted heart rate the maximum workload was 1 metabolic equivalent. The resting blood pressure was 127/76 with a peak blood pressure 142/70 mmHg. Stress echocardiogram. Resting echocardiogram demonstrated preserved ejection fraction of 65%. This was obtained with contrast enhancement. At peak infusion there was thickening of all tobar reduction in left ventricular cavity size and peaking of ejection fraction of 75%. No wall motion abnormalities were noted. Conclusion: Normal dobutamine stress echo with no EKG changes for ischemia. No arrhythmias noted. Normal echocardiographic findings at rest and with peak infusion Ordering Physician: Theo Laguerre Referring Physician: Reshma, Kiara Performed By: Bonnie Brody, LOLACS, RVT
--- NOTE | 2019-08-30 10:35 | CT_ITS ---
STUDY: CARDIAC CALCIUM SCORING - CT CHEST- ADDENDUM REASON FOR EXAM: Assess pulmonary parenchyma and mediastinal structures. RADIATION DOSAGE (If Supplied By Facility): CTDIvol = ( 12.19 ) mGy, DLP = ( 195.04 ) mGycm Individualized dose optimization techniques were used for this CT. ? TECHNIQUE: Axial non-enhanced images were acquired through the heart for the sole purpose of measuring coronary artery calcium. A field of view limited from the base of the heart to the upper abdomen was reviewed to assess the lung parenchyma and soft tissues. COMPARISON: None. FINDINGS: The parenchymal windows with limited field of view show no signs of an acute infiltrate or pulmonary mass. Minimal dependent atelectasis is present in the lung bases. There are no effusions. The visualized segments of the primary bronchi are clear. The mediastinal windows with limited [id number]-[id number] show no signs of hilar or mediastinal adenopathy. There is no discrete chest wall mass. The visualized segments of the upper abdominal viscera are unremarkable. CT/Limited Chest CT w/CCTA IMPRESSION: No acute process or pulmonary mass. Electronically Signed: Reg ePdraza MD at 14:28 EST , Service support ,
[2019-08-30 11:57] VITALS: BP 111/55; PULSE 92; RESP 16; O2SAT 99; BMI 27.4
[2019-08-30 12:45] VITALS: BP 97/58; PULSE 68; RESP 14; O2SAT 97
--- NOTE | 2019-09-03 09:05 | CA.SCORE ---
Calcium Scoring Date of Study:: 08/30/18 Coronary Calcium Scoring: High-resolution Computed Tomographic imaging of the chest was performed on [08/30/2019], with particular attention paid to the coronary arteries. Images from the examination were analyzed for the presence and extent of coronary artery calcification , using coronary calcium quantification software. The patient tolerated the procedure well and there were no complications. The results of the coronary calcification analysis are provided below. - Findings Left Main (LM): 0 Left Anterior Descending (LAD): 0 Left Circumflex (LCX): 0 Right Coronary Artery (RCA): 0 Total Agatston Score: 0 Percentile Rankinth Calcium Scoring Interpretation: 0 No identifiable atherosclerotic plaque. Very low cardiovascular disease risk. <5% chance of presence coronary artery disease A Negative Examination 1-10 Minimal Plaque burden. Significant coronary artery disease very unlikely. 11-100 Mild plaque burden. Likely mild or minimal coronary atherosclerosis. 101-400 Moderate plaque burden Moderate non-obstructive coronary artery disease highly likely. Over 400 Extensive plaque burden. High likelihood of at least one significant coronary stenosis (>50% diameter) Calcium Score: 0 Negative Examination Conclusion: The above is suggestive of no coronary atherosclerotic plaquing. A full assessment of cardiac risk should include an assessment of all conventional risk factors. And the scores and percentile rankings noted herein should be evaluated in that context.
== END ==
PROVIDERS: PCP Internal Medicine; Referring Provider Internal Medicine Cardiovascular Disease; Visit Provider Internal Medicine Cardiovascular Disease
DX: R07.9 Chest pain, unspecified (principal)
CPT/HCPCS: 75571; 76380; 93017; 93350; J7040; Q9957; A4216; C8928

== ENCOUNTER 2019-12-17 16:29 | Emergency (ER) | payer OTHER, SELFPAY ==
[2019-08-30 11:57] VITALS: BMI 27.4
[2019-12-17 16:30] VITALS: BP 138/82; PULSE 91; RESP 17; TEMP 36.8; O2SAT 96; BMI 27.9
--- NOTE | 2019-12-17 16:59 | CT_ITS ---
STUDY: CT BRAIN WITHOUT CONTRAST REASON FOR EXAM: Female, 54 years old. HEADACHE, HX OF TIA IN JULY RADIATION DOSAGE (If Supplied By Facility): CTDIvol = ( 44.99 ) mGy, DLP = ( 745.49 ) mGycm TECHNIQUE: Transaxial CT imaging of the brain was performed without administration of intravenous contrast material. Individualized dose optimization techniques were used for this CT. COMPARISON: Numerous prior studies were reviewed including CT scan 08/27/2009 MRI 08/28/2019. FINDINGS: Normal soft tissue structures. Normal calvarium. Stable very small serpiginous linear area of encephalomalacia in the left frontal lobe where the patient had a recent previous infarct. No acute abnormalities. Normal size ventricles and extra-axial spaces for the patient''s age. Otherwise normal white matter tracts of the cerebral hemispheres. Normal basal ganglia and thalami. Normal brainstem. Normal cerebellum. There is no intracranial hemorrhage. There are no findings of an acute ischemic infarction. Normal visualized paranasal sinuses. CT/Brain/Head without Contrast IMPRESSION: No acute abnormality. Minimal area of encephalomalacia of the left frontal lobe from previous infarct. Electronically Signed: Lamin Parada MD at 18:04 EDT , Service support ,
--- NOTE | 2019-12-17 16:59 | EKG12_ITS ---
Test Reason : PALPS Blood Pressure : / mmHG Vent. Rate : 060 BPM Atrial Rate : 060 BPM P-R Int : 156 ms QRS Dur : 074 ms QT Int : 408 ms P-R-T Axes : 060 051 043 degrees QTc Int : 408 ms Normal sinus rhythm with sinus arrhythmia Normal ECG Confirmed by ELSA WATTS, LEXIE ([id number]), editor book SIDDHARTH COOK ([id number]) on 12/18/2019 11:20:22 AM Referred By: LENKA Confirmed By:LEXIE HUNTER MD
--- NOTE | 2019-12-17 17:24 | RAD_ITS ---
STUDY: X-RAY CHEST REASON FOR EXAM: Female, 54 years old. Chest pain TECHNIQUE: Single AP portable view of the chest. COMPARISON: 08/27/2019. FINDINGS: The lungs are clear and expanded. There is no demonstrated pleural abnormality. Normal size heart. Normal mediastinum and terry. Normal visualized pulmonary arteries. Normal visualized aortic arch and descending thoracic aorta. Normal visualized thoracic spine. Normal visualized ribs, clavicles, and shoulders. There is no demonstrated abnormality of the visualized soft tissue structures of the upper abdomen. RAD/Chest 1 View (Portable) IMPRESSION: Normal x-ray examination of the chest. Electronically Signed: Lamin Parada MD at 19:21 EDT , Service support ,
[2019-12-17 17:46] LABS: Absolute Lymphocyte Count 2.42 X10^3/uL (0.83-4.51); Absolute Neutrophil Count 3.7 X10^3/uL (2.0-7.7); Basophil# 0.02 X10^3/uL; Basophil% 0.3 % (0-1); Eosinophil# 0.07 X10^3/uL; Hematocrit 41.8 % (37-47); Hemoglobin 13.9 g/dL (12.0-15.0); Lymphocyte # 2.42 X10^3/ul (4.0); Lymphocyte % 35.9 % (19-41); Mean Corp Hgb Conc 33.3 g/dL (32-36); Mean Corpuscular Hgb 32.7 pg (27.0-32.0); Mean Corpuscular Volume 98.4 fL (81-99); Mean Platelet Vol. 11.5 fl (6.2-12.0); Monocyte# 0.52 X10^3/uL; Monocyte% 7.7 % (0-10); NRBC Flagged by Analyzer 0 % (0-5); Platelet Count 199 K/mm3 (150-450); RBC Distribution Width CV 11.6 % (11.6-14.6); RBC Distribution Width SD 42.1 fl (35.1-43.9); Red Blood Count 4.25 M/mm3 (4.2-5.4); White Blood Count 6.7 K/mm3 (4.4-11.0)
[2019-12-17 18:00] LABS: Anion Gap 5 (5-15); BUN 19 mg/dL (7-18); Chloride 106 mmol/L (98-107); Creatinine, Serum 0.79 mg/dL (0.55-1.02); EST Glomerular Filtration Rate 81 mL/min (>60); Est Glom Filt Rate - Afr Amer 97 mL/min (>60); Estimated Creatinine Clearance 74.11 ml/min; Glucose 105 mg/dL (74-106); Potassium 3.7 mmol/L (3.5-5.1); Sodium Level 142 mmol/L (136-145); Thyroid Stim Hormone (TSH) 1.09 uIU/mL (0.358-3.74)
[2019-12-17 18:04] LABS: D-Dimer Quantitative (DVT/PE) <= 0.27 FEU/ug/m (0.27-0.49)
--- NOTE | 2019-12-17 18:12 | ED.DCSUM_ITS ---
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 Patient reports that she had a stroke in July 2018 and has had problems with headaches and word recall ever since that time. She reports that her current headache began 2 days ago. It comes and goes and lasts minutes to 1 hour. She describes as a dull aching pain that is 7 out of 10 at worst and 2 out of 10 currently. It is increased with touching the top of her head or exertion. Is decreased with Tylenol. Patient reports that she has palpitations that she describes as an irregular fast heartbeat that lasted approximately an hour while she was laying down. States that these were increased by laying on her left side. She had a chest pain with it. He does report she was short of breath with this. She reports that she has had these intermittently since her stroke. She had a 30-day heart monitor without any abnormality found. She denies any history of atrial fibrillation. She is not anticoagulated. Patient reports that she woke up from a nap this afternoon and had swelling and mild tenderness to the medial side of her left arm. She denies any pain with movement. She denies any trauma. She states that the pain currently is 3 out of 10 in severity. She denies any numbness or weakness distally. Physical Examination: Vitals: Stable. Afebrile. General: Well-nourished and well-developed. Head: Normocephalic atraumatic. Neck: Supple, no lymphadenopathy. No JVD. Nontender. Cardiovascular: Regular rate and rhythm. No murmurs. Respiratory: No respiratory distress. Clear to auscultation bilaterally. Abdominal: Soft, nontender, nondistended, normal bowel sounds. No guarding, rebound, or peritoneal signs. Back: Nontender. Extremities: Mild tenderness palpation of the medial side of her left arm distally. There is no soft tissue swelling or contusion. There is no edema distal to this. She is a 2+ radial pulse., no edema. Skin: Normal color, no rash. Neurologic: Alert and oriented ?3. Cranial nerves II through XII are intact. Normal strength and sensation. Psych: Normal affect. Test Results: EKG is sinus at 60 and is unchanged from August of this year. Troponin is negative. D-dimer is negative. Chem-7 shows a BUN of 19. TSH is normal. CBC is normal. Clinical Impression(s) from Imaging Studies Brain CT 12/17/19 16:59 IMPRESSION: No acute abnormality. Minimal area of encephalomalacia of the left frontal lobe from previous infarct. Electronically Signed: Lamin Parada MD at 18:04 EDT , Service support , Chest X-Ray 12/17/19 17:24 IMPRESSION: Normal x-ray examination of the chest. Electronically Signed: Lamin Parada MD at 19:21 EDT , Service support , Laboratory Data 12/17/19 12/17/19 12/17/19 17:20 17:20 17:20 WBC 6.7 RBC 4.25 Hgb 13.9 Hct 41.8 MCV 98.4 MCH 32.7 H MCHC 33.3 RDW Std Deviation 42.1 RDW Coeff of Gabriel 11.6 Plt Count 199 MPV 11.5 Immature Gran % (Auto) 0.100 Neut % (Auto) 55.0 Lymph % (Auto) 35.9 [place] % (Auto) 7.7 Eos % (Auto) 1.0 Baso % (Auto) 0.3 Absolute Neuts (auto) 3.7 Absolute Lymphs (auto) 2.42 Nucleated RBC % 0 D-Dimer Quant (PE/DVT) <= 0.27 Sodium 142 Potassium 3.7 Chloride 106 Carbon Dioxide 31.0 Anion Gap 5 BUN 19 H Creatinine 0.79 Estim Creat Clear Calc 74.11 Est GFR (MDRD) Af Amer 97 Est GFR (MDRD) Non-Af 81 BUN/Creatinine Ratio 24.0 H Glucose 105 Calcium 9.0 Troponin I < 0.015 TSH 1.09 Clinical Impression(s) from Imaging Studies Brain CT 12/17/19 16:59 IMPRESSION: No acute abnormality. Minimal area of encephalomalacia of the left frontal lobe from previous infarct. Electronically Signed: Lamin Parada MD at 18:04 EDT , Service support , Chest X-Ray 12/17/19 17:24 IMPRESSION: Normal x-ray examination of the chest. Electronically Signed: Lamin Parada MD at 19:21 EDT , Service support , Emergency Department Course and Treatment: Patient was quite anxious upon arrival. I discussed with her that this time I do not feel that any x-rays are necessary of her left arm as she has no pain with movement and no injury. We did discuss the possibility of a blood clot. There is not anyone here that can do an ultrasound this time. With a negative d-dimer and the history as well as the exam I feel that a clot is very unlikely. I feel that she is a suitable candidate for further outpatient evaluation. Treatment Plan: Patient be discharged instructions follow-up her primary care physician within 2 days for another exam. Return to the emergency department for any worsening symptoms. Disposition: To home in improved and stable condition. Impression: 1. Palpitations. 2. Cephalgia. 3. Left arm pain, uncertain cause. This note was generated with [employer] dictation software. It may contain incorrect words, spelling, and punctuation that were not noted in review of the chart prior to signing ED Disposition - Plan for ED Patient: Disposition: Home or Assisted Living Instructions: ED Palpitations Referrals: Kiara Justice DO [Primary Care Provider] - 2 Days
== END 2019-12-17 18:21 | disposition home or self-care (01) ==
LOC: ED 17:55
PROVIDERS: Emergency Provider Emergency Medicine; PCP Internal Medicine
DX: R00.2 Palpitations (principal); R51 Headache; M79.602 Pain in left arm; R07.9 Chest pain, unspecified; R06.02 Shortness of breath; M79.89 Other specified soft tissue disorders; Z79.82 Long term (current) use of aspirin; Z79.899 Other long term (current) drug therapy; Z86.73 Personal history of transient ischemic attack (TIA), and cerebral infarction without residual deficits
CPT/HCPCS: 70450; 71045; 80048; 84443; 84484; 85025; 85379; 93005; 99285

== ENCOUNTER → 2020-01-07 08:28 | Outpatient (CLI) | payer OTHER, SELFPAY ==
[2019-12-17 16:30] VITALS: BMI 27.9
[2020-01-07 10:05] LABS: Vitamin D,25 Hydroxy 66.4 ng/mL
[2020-01-07 10:28] LABS: ALB/GLOB Ratio 1.2 RATIO (0.9-2.4); AST(SGOT) 18 U/L (15-37); Alanine Aminotransfer ALT/SGPT 32 U/L (13-56); Albumin, Serum 3.7 g/dL (3.2-5.0); Alkaline Phosphatase 101 U/L (45-117); Anion Gap 4 (5-15); BUN 12 mg/dL (7-18); BUN/Creat Ratio 15.7 RATIO (10-20); Calcium,Total 8.6 mg/dL (8.5-10.1); Chloride 108 mmol/L (98-107); Cholesterol 130 mg/dL (200); Creatinine, Serum 0.76 mg/dL (0.55-1.02); EST Glomerular Filtration Rate 84 mL/min (>60); Est Glom Filt Rate - Afr Amer 102 mL/min (>60); Globulin 3.1 g/dL (2.2-4.2); Glucose 88 mg/dL (74-106); High Density Lipoprotein 60 mg/dL; Potassium 4.1 mmol/L (3.5-5.1); Protein, Total 6.8 g/dL (6.4-8.2); Sodium Level 142 mmol/L (136-145); Thyroid Stim Hormone (TSH) 1.67 uIU/mL (0.358-3.74); Triglycerides 122 mg/dL; Very Low Density Lipoprotein 24 mg/dL (5-40)
== END ==
PROVIDERS: PCP Internal Medicine; Referring Provider Internal Medicine Endocrinology, Diabetes & Metabolism; Visit Provider Internal Medicine Endocrinology, Diabetes & Metabolism
DX: E04.2 Nontoxic multinodular goiter (principal); E78.2 Mixed hyperlipidemia; E55.9 Vitamin D deficiency, unspecified
CPT/HCPCS: 36415; 80053; 80061; 82306; 84443

== ENCOUNTER → 2020-02-05 09:07 | Outpatient (CLI) | payer OTHER, SELFPAY ==
[2020-09-18 12:37] LABS: Renin, Plasma < 0.167 ng/mL/hr (0.167-5.380)
== END ==
PROVIDERS: PCP Internal Medicine; Referring Provider Internal Medicine Nephrology; Visit Provider Internal Medicine Nephrology
DX: I10 Essential (primary) hypertension (principal)
CPT/HCPCS: 36415; 82088; 82533; 84244

== ENCOUNTER → 2020-03-05 14:25 | Outpatient (CLI) | payer OTHER, SELFPAY ==
--- NOTE | 2020-03-05 14:26 | BI_ITS ---
MAMMOGRAPHY - BILATERAL SCREENING REASON FOR EXAM: Female, 54 years old. Routine annual screening examination. PERTINENT HISTORY: Sister with breast cancer. TECHNIQUE: Digital bilateral breast rachel (3D mammographic acquisition) in the CC and MLO projections. 2-D mediolateral oblique (MLO) and craniocaudad (CC) views of both breasts were obtained. CAD: Full Field Digital Mammography with Computer Added Detection was performed. COMPARISON: Comparison is made with prior examination dated 03/01/2019 and 12/09/2016. FINDINGS: Breast Composition: The breasts are heterogeneously dense, which may obscure small masses. There are no dominant masses or suspicious calcifications. Stable benign appearing bilateral axillary lymph nodes. No other significant abnormalities are identified. There has been no significant change since the prior study. BI/SCREEN MAMM (CAD) W/RACHEL BILAT IMPRESSION: Stable bilateral screening mammogram. Yearly follow-up mammogram recommended. (A) ASSESSMENT CATEGORY: BIRADS Category 2: Benign. A letter regarding these results will be sent to the patient by the facility within 30 days. Approximately 10% of breast cancers are not detected by mammography. A normal mammogram should not delay biopsy of a clinically suspicious abnormality. [id number] Electronically Signed: Martir Guerrero, at 15:42 EDT , Service support ,
== END ==
PROVIDERS: PCP Internal Medicine; Referring Provider Obstetrics & Gynecology; Visit Provider Obstetrics & Gynecology
DX: Z12.31 Encounter for screening mammogram for malignant neoplasm of breast (principal)
CPT/HCPCS: 77063; 77067

== ENCOUNTER → 2020-04-01 08:37 | Outpatient (CLI) | payer OTHER, SELFPAY ==
[2020-09-18 12:38] LABS: Aldosterone, Serum 8.5 ng/dL (0.0-30.0); Renin, Plasma 0.247 ng/mL/hr (0.167-5.380)
== END ==
PROVIDERS: PCP Internal Medicine; Referring Provider Internal Medicine Nephrology; Visit Provider Internal Medicine Nephrology
DX: I10 Essential (primary) hypertension (principal)
CPT/HCPCS: 36415; 82088; 82533; 84244

== ENCOUNTER → 2020-05-01 13:30 | Outpatient (CLI) | payer OTHER, SELFPAY ==
[2020-05-01 16:00] LABS: T4 Free Direct 1.01 ng/dL (0.76-1.46); Thyroid Stim Hormone (TSH) 1.15 uIU/mL (0.358-3.74)
[2020-05-05 17:41] LABS: Thyroglobulin Antibody < 1.0 IU/mL (0.0-0.9); Thyroid Peroxidase AB < 9 IU/mL (0-34)
== END ==
PROVIDERS: PCP Internal Medicine; Referring Provider Internal Medicine Endocrinology, Diabetes & Metabolism; Visit Provider Internal Medicine Endocrinology, Diabetes & Metabolism
DX: E04.2 Nontoxic multinodular goiter (principal)
CPT/HCPCS: 36415; 84439; 84443; 86376; 86800

== ENCOUNTER → 2020-10-15 09:27 | Outpatient (CLI) | payer OTHER, SELFPAY ==
[2020-10-15 10:47] LABS: PTHIN 46.1 pg/mL (18.4-80.1)
[2020-10-15 10:50] LABS: Vitamin D,25 Hydroxy 70.9 ng/mL
[2020-10-15 11:09] LABS: ALB/GLOB Ratio 1.2 RATIO (0.9-2.4); AST(SGOT) 22 U/L (15-37); Alanine Aminotransfer ALT/SGPT 36 U/L (13-56); Albumin, Serum 3.8 g/dL (3.2-5.0); Alkaline Phosphatase 104 U/L (45-117); Anion Gap 4 (5-15); BUN 12 mg/dL (7-18); BUN/Creat Ratio 16.2 RATIO (10-20); Bilirubin, Direct 0.22 mg/dL (0.00-0.30); Calcium,Total 9.3 mg/dL (8.5-10.1); Chloride 106 mmol/L (98-107); Creatinine, Serum 0.74 mg/dL (0.55-1.02); EST Glomerular Filtration Rate 87 mL/min (>60); Est Glom Filt Rate - Afr Amer 105 mL/min (>60); Globulin 3.1 g/dL (2.2-4.2); Glucose 87 mg/dL (74-106); Protein, Total 6.9 g/dL (6.4-8.2); Sodium Level 139 mmol/L (136-145); Thyroid Stim Hormone (TSH) 2.41 uIU/mL (0.358-3.74)
[2020-10-17 20:08] LABS: CHOLESTEROL TOTAL 142 mg/dL (100-199); HDL-C 73 mg/dL (>39); HDL-P TOTAL 40.9 umol/L (>=30.5); SMALL LDL-P 375 nmol/L (<=527); TRIGLYCERIDES 59 mg/dL (0-149)
[2020-10-17 20:37] LABS: INSULIN RESISTANCE SCORE 30 (<=45); LDL SIZE 20.4 nm (>20.5); LDL-C (NIH CALC) 57 mg/dL (0-99); LDL-P 652 nmol/L (<1000)
== END ==
PROVIDERS: PCP Internal Medicine; Referring Provider Internal Medicine; Visit Provider Internal Medicine
DX: E04.2 Nontoxic multinodular goiter (principal); M85.89 Other specified disorders of bone density and structure, multiple sites; E55.9 Vitamin D deficiency, unspecified; Z13.220 Encounter for screening for lipoid disorders
CPT/HCPCS: 36415; 80053; 80061; 82248; 82306; 83704; 83970; 84443

== ENCOUNTER 2021-08-12 08:57 | Outpatient (CLI) | payer OTHER, SELFPAY ==
[2021-08-12 11:00] LABS: Vitamin D,25 Hydroxy 85.5 ng/mL
[2021-08-12 11:12] LABS: ALB/GLOB Ratio 1.3 RATIO (0.9-2.4); AST(SGOT) 16 U/L (15-37); Alanine Aminotransfer ALT/SGPT 42 U/L (13-56); Albumin, Serum 3.7 g/dL (3.2-5.0); Alkaline Phosphatase 90 U/L (45-117); Anion Gap 3 (5-15); BUN 12 mg/dL (7-18); BUN/Creat Ratio 16.7 RATIO (10-20); Calcium,Total 8.9 mg/dL (8.5-10.1); Chloride 108 mmol/L (98-107); Creatinine, Serum 0.72 mg/dL (0.55-1.02); EST Glomerular Filtration Rate 89 mL/min (>60); Est Glom Filt Rate - Afr Amer 108 mL/min (>60); Globulin 2.8 g/dL (2.2-4.2); Glucose 86 mg/dL (74-106); Potassium 4.3 mmol/L (3.5-5.1); Protein, Total 6.5 g/dL (6.4-8.2); Sodium Level 140 mmol/L (136-145)
== END 2021-08-12 23:59 | disposition home or self-care (01) ==
LOC: MTLAB 08:59
PROVIDERS: PCP Internal Medicine; Referring Provider Internal Medicine Endocrinology, Diabetes & Metabolism; Visit Provider Internal Medicine Endocrinology, Diabetes & Metabolism
DX: E04.2 Nontoxic multinodular goiter (principal); E55.9 Vitamin D deficiency, unspecified
CPT/HCPCS: 36415; 80053; 82306; 84443

== ENCOUNTER 2021-08-28 06:44 | Outpatient (CLI) | payer OTHER, SELFPAY ==
[2021-08-28 08:22] LABS: Anion Gap 4 (5-15); BUN 11 mg/dL (7-18); Calcium,Total 9.3 mg/dL (8.5-10.1); Chloride 105 mmol/L (98-107); Cholesterol 159 mg/dL (200); Creatinine, Serum 0.84 mg/dL (0.55-1.02); EST Glomerular Filtration Rate 74 mL/min (>60); Est Glom Filt Rate - Afr Amer 90 mL/min (>60); Glucose 89 mg/dL (74-106); High Density Lipoprotein 73 mg/dL; Magnesium 2.4 mg/dL (1.6-2.6); PTHIN 52.8 pg/mL (18.4-80.1); Sodium Level 139 mmol/L (136-145); Triglycerides 60 mg/dL; Very Low Density Lipoprotein 12 mg/dL (5-40)
== END 2021-08-28 23:59 | disposition home or self-care (01) ==
PROVIDERS: PCP Internal Medicine; Referring Provider Nurse Practitioner Adult Health; Visit Provider Nurse Practitioner Adult Health
DX: E78.5 Hyperlipidemia, unspecified (principal); E21.5 Disorder of parathyroid gland, unspecified; E27.9 Disorder of adrenal gland, unspecified; E61.2 Magnesium deficiency; M81.0 Age-related osteoporosis without current pathological fracture
CPT/HCPCS: 36415; 80048; 80061; 81050; 82627; 83735; 83970; 82626

== ENCOUNTER 2021-09-18 15:56 | Outpatient (CLI) | payer OTHER, SELFPAY | END 2021-09-18 23:59 | disposition home or self-care (01) | LOC: LAB 15:57 | PROVIDERS: PCP Internal Medicine; Visit Provider Internal Medicine | DX: R50.9 Fever, unspecified (principal) | CPT/HCPCS: 36415; 87040 ==

== ENCOUNTER 2021-09-28 12:36 | Outpatient (CLI) | payer OTHER, SELFPAY ==
--- NOTE | 2021-09-28 12:38 | BI_ITS ---
MAMMOGRAPHY - BILATERAL SCREENING REASON FOR EXAM: Female, 55 years old. Routine annual screening examination. PERTINENT HISTORY: Sister with breast cancer. TECHNIQUE: Digital bilateral breast rachel (3D mammographic acquisition) in the CC and MLO projections. 2-D mediolateral oblique (MLO) and craniocaudad (CC) views of both breasts were obtained. CAD: Full Field Digital Mammography with Computer Added Detection was performed. COMPARISON: Comparison is made with prior study dated 03/05/2020 and 03/01/2019. FINDINGS: Breast Composition: The breasts are heterogeneously dense, which may obscure small masses. There are no dominant masses or suspicious calcifications. Stable small benign-appearing bilateral axillary lymph nodes. No other significant abnormalities are identified. There has been no significant change since the prior study. BI/SCRN MAMM (CAD)W/RACHEL BILAT IMPRESSION: Stable bilateral screening mammogram. Yearly follow-up mammogram recommended. (A) ASSESSMENT CATEGORY: BIRADS Category 2: Benign. A letter regarding these results will be sent to the patient by the facility within 30 days. Approximately 10% of breast cancers are not detected by mammography. A normal mammogram should not delay biopsy of a clinically suspicious abnormality. [id number] Electronically Signed: Martir Guerrero MD at 13:39 EDT ,
== END 2021-09-28 23:59 | disposition home or self-care (01) ==
LOC: OPBI 12:37
PROVIDERS: PCP Internal Medicine; Visit Provider Internal Medicine
DX: Z12.31 Encounter for screening mammogram for malignant neoplasm of breast (principal); Z80.3 Family history of malignant neoplasm of breast
CPT/HCPCS: 77063; 77067

== ENCOUNTER → 2022-04-19 | Outpatient (CLI) | payer OTHER, SELFPAY ==
[2022-04-19 12:43] LABS: Vitamin D,25 Hydroxy 84.5 ng/mL
[2022-04-19 13:18] LABS: ALB/GLOB Ratio 1.2 RATIO (0.9-2.4); AST(SGOT) 13 U/L (15-37); Alanine Aminotransfer ALT/SGPT 24 U/L (13-56); Albumin, Serum 3.5 g/dL (3.2-5.0); Alkaline Phosphatase 87 U/L (45-117); Anion Gap 6 (5-15); BUN 11 mg/dL (7-18); BUN/Creat Ratio 13.9 RATIO (10-20); Calcium,Total 9.1 mg/dL (8.5-10.1); Chloride 106 mmol/L (98-107); Creatinine, Serum 0.79 mg/dL (0.55-1.02); EST Glomerular Filtration Rate 80 mL/min (>60); Est Glom Filt Rate - Afr Amer 97 mL/min (>60); Glucose 90 mg/dL (74-106); Potassium 4.2 mmol/L (3.5-5.1); Protein, Total 6.5 g/dL (6.4-8.2); Sodium Level 141 mmol/L (136-145); Thyroid Stim Hormone (TSH) 1.85 uIU/mL (0.358-3.74)
== END | disposition home or self-care (01) ==
LOC: MTLAB 09:52
PROVIDERS: PCP Internal Medicine; Referring Provider Internal Medicine Endocrinology, Diabetes & Metabolism; Visit Provider Internal Medicine Endocrinology, Diabetes & Metabolism
DX: E04.2 Nontoxic multinodular goiter (principal); M81.0 Age-related osteoporosis without current pathological fracture; E55.9 Vitamin D deficiency, unspecified
CPT/HCPCS: 36415; 80053; 82306; 84443

== ENCOUNTER → 2022-08-04 | Outpatient (CLI) | payer OTHER, SELFPAY ==
[2022-08-04 12:39] LABS: Vitamin D,25 Hydroxy 82.2 ng/mL
[2022-08-04 12:58] LABS: ALB/GLOB Ratio 1.2 RATIO (0.9-2.4); AST(SGOT) 16 U/L (15-37); Alanine Aminotransfer ALT/SGPT 24 U/L (13-56); Albumin, Serum 3.8 g/dL (3.2-5.0); Alkaline Phosphatase 86 U/L (45-117); Anion Gap 8 (5-15); BUN 9 mg/dL (7-18); BUN/Creat Ratio 10.9 RATIO (10-20); Calcium,Total 9.1 mg/dL (8.5-10.1); Chloride 104 mmol/L (98-107); Creatinine, Serum 0.82 mg/dL (0.55-1.02); EST Glomerular Filtration Rate 76 mL/min (>60); Est Glom Filt Rate - Afr Amer 92 mL/min (>60); Globulin 3.1 g/dL (2.2-4.2); Glucose 87 mg/dL (74-106); Potassium 4.1 mmol/L (3.5-5.1); Protein, Total 6.9 g/dL (6.4-8.2); Sodium Level 141 mmol/L (136-145); Thyroid Stim Hormone (TSH) 1.62 uIU/mL (0.358-3.74)
== END | disposition home or self-care (01) ==
LOC: MTLAB 09:40
PROVIDERS: PCP Internal Medicine; Referring Provider Internal Medicine Endocrinology, Diabetes & Metabolism; Visit Provider Internal Medicine Endocrinology, Diabetes & Metabolism
DX: M81.0 Age-related osteoporosis without current pathological fracture (principal); E04.2 Nontoxic multinodular goiter; E55.9 Vitamin D deficiency, unspecified
CPT/HCPCS: 36415; 80053; 82306; 82627; 84443; 82626

== ENCOUNTER 2022-09-12 03:36 | Emergency (ER) | payer OTHER, SELFPAY ==
[2022-09-12 03:37] VITALS: BP 161/83; PULSE 74; RESP 18; TEMP 36.2; O2SAT 98; BMI 27.5
[2022-09-12 04:07] VITALS: PULSE 68; RESP 18; O2SAT 96
[2022-09-12] MEDS: DiphenhydrAMINE 25 MG Capsule PO (04:07)
--- NOTE | 2022-09-12 04:07 | EDS_ITS ---
HPI History of Present Illness Chief Complaint: Allergic Reaction Narrative Narrative: Patient is a 56-year-old female with past medical history of CVA as well as recurrent sphenoid sinusitis. She states secondary to the recurrent sinusitis she gets placed on Omnicef 3 or 4 times a year. She states she went and saw her ENT just recently and was placed on another round of antibiotics secondary to her recurrent sinus infection. She states that on Tuesday morning around 9 AM she took her first pill and as she swallowed it felt like it was difficult to swallow. She states throughout the day she did not have any further issues but then around 8 or 9:00 at night took her second pill and once again folic it was difficult to swallow. She states a few hours after this she became concerned that she might have some throat swelling and took a Benadryl. She states she was able to swallow this but it was difficult to do. She does report a previous history of anaphylaxis to shellfish and as she has concerned this could be happening once again comes in for evaluation [facility] Medical History Arm paresthesia, right (08/28/19) Cephalgia Chronic sinusitis Chronic sinusitis History of CVA (cerebrovascular accident) (07/2019) Ischemic stroke Low back pain with left-sided sciatica Lt facial numbness Paresthesia of left arm Word finding difficulty Home Medications valacyclovir 500 mg tablet 500 mg PO DAILY virus 05/09/18 [History Last Taken 08/27/19] L.acidoph, paracasei,B. lactis 10 billion cell capsule 1 cap PO DAILY supplement 07/06/19 [History Last Taken 08/27/19] acetaminophen 650 mg tablet,extended release 650 mg PO Q4H PRN PRN Pain Or Fever 07/06/19 [History Last Taken 07/05/19] cholecalciferol (vitamin D3) 50 mcg (2,000 unit) capsule 2,000 unit PO DAILY vitamin 07/06/19 [History Last Taken 08/27/19] fish oil-dha-epa 1,200 mg-144 mg-216 mg capsule 1 cap PO QHS supplement 07/06/19 [History Last Taken 07/05/19] iodine 150 mcg tablet 1,200 mcg PO DAILY supplement 07/06/19 [History Last Taken 08/27/19] multivitamin with folic acid 400 mcg tablet 1 tab PO DAILY vitamin 07/06/19 [History Last Taken 08/27/19] vitamin B complex 1 tab PO DAILY vitamin 07/06/19 [History Last Taken 08/27/19] aspirin 81 mg chewable tablet 81 mg PO DAILY@0800 ##60 07/09/19 [Rx Last Taken 08/27/19] atorvastatin 80 mg tablet 80 mg PO QHS #60 tabs 07/09/19 [Rx Last Taken 08/26/19] calcium carb-vit E3-vzodtrdwh-ecbx 333 mg-200 unit-133 mg-5 mg tablet 2 ea PO QHS supplement 07/11/19 [History Last Taken 08/27/19] vitamin E mixed 400 unit capsule 400 unit PO QHS supplement 07/11/19 [History Last Taken 08/26/19] budesonide 32 mcg/actuation nasal spray 2 sprays NS DAILY allergies 08/28/19 [History Last Taken 08/27/19] clotrimazole 10 mg stacy 10 mg MUCOUS MEM 5X/DAY thrush 08/28/19 [History Last Taken 08/27/19] metoprolol succinate 25 mg tablet,extended release 24 hr 12.5 mg PO DAILY 12/17/19 [History Last Taken Unknown] Allergy/AdvReac Type Severity Reaction Status Date / Time latex Allergy Hives Verified 12/17/19 16:30 meloxicam Allergy Anaphylaxis Verified 12/17/19 16:30 nickel Allergy Hives Verified 12/17/19 16:30 esomeprazole [From Nexium] AdvReac Upset Verified 12/17/19 16:30 Stomach thimerosal AdvReac Angioedema Verified 12/17/19 16:30 Family History Father Myocardial infarction Surgical History H/O: hysterectomy History of tonsillectomy S/P left knee arthroscopy Social History (Updated 08/17/19 @ 10:[address] Theo Laguerre MD) Smoking Status: Never smoker alcohol intake: never what type of physical activity do you participate in: none ROS ROS ED Constitutional Constitutional ED: Denies chills or fever(s) ENT ENT ED: Reports other Details: Positive dysphagia ; Denies sore throat Cardiovascular Cardiovascular: Denies chest pain Respiratory/Chest Respiratory/Chest: Denies cough or dyspnea Gastrointestinal Gastrointestinal: Denies abdominal pain, diarrhea, nausea or vomiting Genitourinary Genitourinary ED: Denies dysuria Musculoskeletal Musculoskeletal: Denies myalgias Integumentary Denies rash Neurologic Neurologic: Denies headache(s) Psychiatric Psychiatric: Denies anxiety Hematologic/Lymphatic Hematologic/Lymphatic: Denies easy bleeding or easy bruising EXAM Physical Exam Const Vital Signs: 09/12/22 03:37 09/12/22 04:07 09/12/22 04:31 Temperature 97.1 F L Temperature Source Temporal Pulse Rate 74 68 70 Respiratory Rate 18 18 Blood Pressure 161/83 H Blood Pressure Mean 109 Pulse Ox 98 96 978 Oxygen Delivery Method Room Air Room Air Positive well nourished and well developed General Appearance ED: well developed HEENT Reports moist mucous membranes HEENT Narrative: No tongue or lip swelling no oral lesions no airway edema or compromise. There is no trismus change in voice or difficulty with secretions. Patient can move her neck in all directions without difficulty or pain Eyes PERRL and EOMs intact bilaterally Neck supple Neck Narrative: No crepitance palpated Resp normal respiratory effort and clear to auscultation bilaterally Resp Narrative: No nasal flaring retractions tachypnea or accessory muscle use. No stridor noted Cardio regular rate and regular rhythm Extremity normal to inspection Neuro oriented x3 and CN's II-XII intact bilaterally Sensorium / Orientation: alert Psych mental status grossly normal Skin no rashes or lesions noted MDM MDM MDM Narrative Medical decision making narrative: Patient presented to the ER mildly hypertensive but was otherwise afebrile and in no acute respiratory distress. She did not have a change in voice there is no nostril flaring or retractions she was tolerating her secretions without difficulty as well. She did not have a rash present. And she also reported that with the first pill she swallowed of the antibiotic she felt like it was difficult to swallow. Based on this history I do not feel this is an acute allergic reaction or angioedema as she does not have tongue or lip swelling or rash present. I do feel this is most likely a combination of the fact she has a known thyroid goiter causing some compression mixed with persistent postnasal drip which creates inflammation further narrowing down the posterior pharynx making it feel difficult to swallow. She has not have a fever and there is no pain with extension and flexion at the neck going against epiglottitis and by physical exam there is no signs of a peritonsillar abscess or retropharyngeal abscess. We discussed basic blood work providing Solu-Medrol Benadryl and Pepcid and even performing a CT scan with IV contrast of the neck to look for signs of infection or airway compromise. However my clinical suspicion for this is low and patient states that she does not want to have the blood work or imaging study performed at this time. She was given oral Benadryl in the ER and was able to swallow without difficulty as well as swallow down ice water. On reevaluation she is resting comfortably she remains in no acute distress there is no nostril flaring retractions tachypnea or accessory muscle use. She does not have any change in voice or trismus or difficulty with her secretions. Therefore at this time I do not feel there is need for further work-up and patient states she will see her ENT to discuss a fiberoptic scope on Tuesday. As this does not appear to be an acute allergic reaction she was advised to continue her antibiotic. The plan of care was discussed with the patient and and both are agreeable to it History & Record Review Discussion w/independent historian: Patient and Family Discharge Plan Triage Chief Complaint: Allergic Reaction ED Provider: John Lopez Dx/Rx/DC Orders Clinical Impression: Dysphagia, History of CVA (cerebrovascular accident), Recurrent sphenoidal sinusitis Instructions: ED Dysphagia (Adult) Prescriptions: No Action valacyclovir 500 MG tablet 500 mg PO DAILY fish oil-dha-epa 1 EACH capsule 1 cap PO QHS cholecalciferol (vitamin D3) 2,000 UNIT capsule 2,000 unit PO DAILY multivitamin with folic acid 1 TABLET tablet 1 tab PO DAILY L.acidoph, paracasei,B. lactis 1 EACH capsule 1 cap PO DAILY acetaminophen 650 MG tablet extended release 650 mg PO Q4H PRN PRN (Reason: Pain Or Fever) vitamin B complex 1 EACH tablet 1 tab PO DAILY iodine 150 MCG tablet 1,200 mcg PO DAILY atorvastatin 80 MG tablet 80 mg PO QHS Qty: 60 0RF aspirin 81 MG tablet,chewable 81 mg PO DAILY@0800 Qty: 60 0RF calcium carb-D3-mag [id number] 1 EACH tablet 2 ea PO QHS vitamin E mixed 400 UNIT capsule 400 unit PO QHS budesonide 8.43 ML spray,non-aerosol 2 sprays NS DAILY clotrimazole 10 MG stacy 10 mg MUCOUS MEM 5X/DAY Rx Instructions: pt states she has three days left on the prescription metoprolol succinate 25 MG tablet extended release 24 hr 12.5 mg PO DAILY Primary Care Provider: Kiara Justice Referrals: Kiara Justice, [Primary Care Provider] - Activity Restrictions/Additional Instructions: If you have worsening of symptoms or any further concerns please return to the ER for repeat evaluation Disposition Disposition: Home, Self Care
[2022-09-12 04:31] VITALS: PULSE 70; O2SAT 978
== END 2022-09-12 04:50 | disposition home or self-care (01) ==
LOC: ED 04:37
PROVIDERS: Emergency Provider Emergency Medicine; PCP Internal Medicine; Visit Provider Emergency Medicine
DX: R13.10 Dysphagia, unspecified (principal); J32.3 Chronic sphenoidal sinusitis; E04.9 Nontoxic goiter, unspecified; Z79.82 Long term (current) use of aspirin; Z79.899 Other long term (current) drug therapy; Z86.73 Personal history of transient ischemic attack (TIA), and cerebral infarction without residual deficits
CPT/HCPCS: 99283

== ENCOUNTER → 2022-10-26 | Outpatient (CLI) | payer OTHER, SELFPAY ==
[2022-10-26 09:54] LABS: Absolute Lymphocyte Count 2.98 X10^3/uL (0.83-4.51); Absolute Neutrophil Count 1.5 X10^3/uL (2.0-7.7); Basophil# 0.02 X10^3/uL; Basophil% 0.4 % (0-1); Eosinophil# 0.12 X10^3/uL; Eosinophils% 2.4 % (0-5); Hematocrit 41.5 % (37-47); Hemoglobin 13.7 g/dL (12.0-15.0); Lymphocyte # 2.98 X10^3/ul (0.83-4.51); Lymphocyte % 59.5 % (19-41); Mean Corpuscular Hgb 33.1 pg (27.0-32.0); Mean Corpuscular Volume 100.2 fL (81-99); Mean Platelet Vol. 11.2 fl (6.2-12.0); Monocyte# 0.42 X10^3/uL; Monocyte% 8.4 % (0-10); NRBC Flagged by Analyzer 0 % (0-5); Neutrophil # 1.46 X10^3/uL (2.7-7.7); Neutrophil % 29.1 % (47-70); Platelet Count 212 K/mm3 (150-450); RBC Distribution Width CV 11.7 % (11.6-14.6); RBC Distribution Width SD 42.8 fl (35.1-43.9); Red Blood Count 4.14 M/mm3 (4.2-5.4)
[2022-10-26 10:17] LABS: Cholesterol 221 mg/dL (200); High Density Lipoprotein 73 mg/dL; Triglycerides 53 mg/dL; Very Low Density Lipoprotein 11 mg/dL (5-40)
--- NOTE | 2022-10-26 13:52 | BI_ITS ---
MAMMOGRAPHY - BILATERAL SCREENING REASON FOR EXAM: Female, 57 years old. Routine annual screening examination. PERTINENT HISTORY: Sister with breast cancer. TECHNIQUE: Digital bilateral breast rachel (3D mammographic acquisition) in the CC and MLO projections. 2-D mediolateral oblique (MLO) and craniocaudad (CC) views of both breasts were obtained. CAD: Full Field Digital Mammography with Computer Added Detection was performed. COMPARISON: Comparison is made with prior study September 28, 2021 and March 05, 2020. FINDINGS: Breast Composition: The breasts are heterogeneously dense, which may obscure small masses. There are no dominant masses or suspicious calcifications. Stable small benign appearing bilateral axillary lymph nodes. No other significant abnormalities are identified. There has been no significant change since the prior study. BI/SCRN MAMM (CAD)W/RACHEL BILAT IMPRESSION: Stable bilateral screening mammogram. Yearly follow-up mammogram recommended. (A) ASSESSMENT CATEGORY: BIRADS Category 2: Benign. A letter regarding these results will be sent to the patient by the facility within 30 days. Approximately 10% of breast cancers are not detected by mammography. A normal mammogram should not delay biopsy of a clinically suspicious abnormality. [id number] Electronically Signed: Martir Guerrero MD at 14:26 EDT ,
== END | disposition home or self-care (01) ==
LOC: OPBI 08:38
PROVIDERS: PCP Internal Medicine; Referring Provider Internal Medicine; Visit Provider Internal Medicine
DX: Z12.31 Encounter for screening mammogram for malignant neoplasm of breast (principal); E78.5 Hyperlipidemia, unspecified; Z80.3 Family history of malignant neoplasm of breast
CPT/HCPCS: 36415; 77063; 77067; 80061; 85025

== ENCOUNTER → 2023-02-04 | Outpatient (CLI) | payer OTHER, SELFPAY ==
[2023-02-04 12:36] LABS: Erythrocyte Sedimentation Rate < 1 mm/hr (0-30)
[2023-02-04 12:40] LABS: Absolute Lymphocyte Count 2.38 X10^3/uL (0.83-4.51); Absolute Neutrophil Count 2.2 X10^3/uL (2.0-7.7); Basophil# 0.02 X10^3/uL; Basophil% 0.4 % (0-1); Eosinophil# 0.12 X10^3/uL; Eosinophils% 2.3 % (0-5); Hematocrit 43.6 % (37-47); Hemoglobin 14.3 g/dL (12.0-15.0); Lymphocyte # 2.38 X10^3/ul (0.83-4.51); Mean Corp Hgb Conc 32.8 g/dL (32-36); Mean Corpuscular Hgb 32.3 pg (27.0-32.0); Mean Corpuscular Volume 98.4 fL (81-99); Mean Platelet Vol. 11.5 fl (6.2-12.0); Monocyte# 0.42 X10^3/uL; Monocyte% 8.1 % (0-10); NRBC Flagged by Analyzer 0 % (0-5); Neutrophil # 2.22 X10^3/uL (2.7-7.7); Platelet Count 220 K/mm3 (150-450); RBC Distribution Width CV 11.9 % (11.6-14.6); RBC Distribution Width SD 43.1 fl (35.1-43.9); Red Blood Count 4.43 M/mm3 (4.2-5.4); White Blood Count 5.2 K/mm3 (4.4-11.0)
[2023-02-04 12:45] LABS: D-Dimer Quantitative (DVT/PE) < 0.27 FEU/ug/m (0.27-0.49)
[2023-02-04 12:51] LABS: ALB/GLOB Ratio 1.1 RATIO (0.9-2.4); AST(SGOT) 15 U/L (15-37); Alanine Aminotransfer ALT/SGPT 25 U/L (13-56); Albumin, Serum 3.9 g/dL (3.2-5.0); Alkaline Phosphatase 86 U/L (45-117); Anion Gap 2 (5-15); BUN 10 mg/dL (7-18); BUN/Creat Ratio 12.9 RATIO (10-20); CPK Total, Creatine Kinase 85 U/L (26-192); CRP < 2.90 mg/L (0.0-3.0); Calcium,Total 9.3 mg/dL (8.5-10.1); Chloride 105 mmol/L (98-107); Creatinine, Serum 0.78 mg/dL (0.55-1.02); EST Glomerular Filtration Rate 82 mL/min (>60); Est Glom Filt Rate - Afr Amer 99 mL/min (>60); Globulin 3.4 g/dL (2.2-4.2); Glucose 90 mg/dL (74-106); Protein, Total 7.3 g/dL (6.4-8.2); Sodium Level 139 mmol/L (136-145); Troponin-I HS 3 pg/mL (3.0-54.0)
== END | disposition home or self-care (01) ==
PROVIDERS: PCP Internal Medicine; Referring Provider Nurse Practitioner Family; Visit Provider Nurse Practitioner Family
DX: R07.9 Chest pain, unspecified (principal)
CPT/HCPCS: 80053; 82550; 83880; 84484; 85025; 85379; 85652; 86140

== ENCOUNTER → 2023-04-06 | Outpatient (CLI) | payer OTHER, SELFPAY ==
[2023-04-06 10:39] LABS: Vitamin D,25 Hydroxy 75.2 ng/mL
[2023-04-06 10:41] LABS: ALB/GLOB Ratio 1.2 RATIO (0.9-2.4); AST(SGOT) 17 U/L (15-37); Alanine Aminotransfer ALT/SGPT 33 U/L (13-56); Albumin, Serum 3.7 g/dL (3.2-5.0); Alkaline Phosphatase 81 U/L (45-117); Anion Gap 3 (5-15); BUN 13 mg/dL (7-18); BUN/Creat Ratio 16.5 RATIO (10-20); Chloride 107 mmol/L (98-107); Creatinine, Serum 0.79 mg/dL (0.55-1.02); EST Glomerular Filtration Rate 80 mL/min (>60); Est Glom Filt Rate - Afr Amer 97 mL/min (>60); Glucose 85 mg/dL (74-106); Potassium 4.1 mmol/L (3.5-5.1); Protein, Total 6.7 g/dL (6.4-8.2); Sodium Level 141 mmol/L (136-145); T4 Free Direct 0.86 ng/dL (0.76-1.46); Thyroid Stim Hormone (TSH) 1.68 uIU/mL (0.358-3.74)
== END | disposition home or self-care (01) ==
PROVIDERS: PCP Internal Medicine; Referring Provider Internal Medicine Endocrinology, Diabetes & Metabolism; Visit Provider Internal Medicine Endocrinology, Diabetes & Metabolism
DX: M81.0 Age-related osteoporosis without current pathological fracture (principal); E27.9 Disorder of adrenal gland, unspecified; E04.2 Nontoxic multinodular goiter; E55.9 Vitamin D deficiency, unspecified
CPT/HCPCS: 36415; 80053; 82306; 82627; 84439; 84443; 82626

== ENCOUNTER → 2023-12-09 | Outpatient (CLI) | payer OTHER, SELFPAY ==
[2023-12-09 10:51] LABS: ALB/GLOB Ratio 1.3 RATIO (0.9-2.4); AST(SGOT) 19 U/L (15-37); Alanine Aminotransfer ALT/SGPT 27 U/L (13-56); Albumin, Serum 3.7 g/dL (3.2-5.0); Alkaline Phosphatase 77 U/L (45-117); Anion Gap 5 (5-15); BUN 12 mg/dL (7-18); BUN/Creat Ratio 15.7 RATIO (10-20); Calcium,Total 8.7 mg/dL (8.5-10.1); Chloride 105 mmol/L (98-107); Cholesterol 151 mg/dL (200); Creatinine, Serum 0.76 mg/dL (0.55-1.02); EST Glomerular Filtration Rate 83 mL/min (>60); Est Glom Filt Rate - Afr Amer 101 mL/min (>60); Globulin 2.8 g/dL (2.2-4.2); Glucose 90 mg/dL (74-106); High Density Lipoprotein 72 mg/dL; Potassium 3.8 mmol/L (3.5-5.1); Protein, Total 6.5 g/dL (6.4-8.2); Sodium Level 138 mmol/L (136-145); Thyroid Stim Hormone (TSH) 1.63 uIU/mL (0.358-3.74); Triglycerides 48 mg/dL; Very Low Density Lipoprotein 10 mg/dL (5-40)
[2023-12-09 11:36] LABS: Vitamin B12 562 pg/mL (211-911); Vitamin D,25 Hydroxy 68.2 ng/mL
== END | disposition home or self-care (01) ==
LOC: MTLAB 08:41
PROVIDERS: PCP Internal Medicine; Referring Provider Internal Medicine; Visit Provider Internal Medicine
DX: M81.0 Age-related osteoporosis without current pathological fracture (principal); E53.8 Deficiency of other specified B group vitamins; E04.2 Nontoxic multinodular goiter; E55.9 Vitamin D deficiency, unspecified; E78.5 Hyperlipidemia, unspecified
CPT/HCPCS: 36415; 80053; 80061; 82306; 82607; 84443

== ENCOUNTER → 2024-02-09 | Outpatient (CLI) | payer OTHER, SELFPAY ==
--- NOTE | 2024-02-09 12:21 | BI_ITS ---
MAMMOGRAPHY - BILATERAL SCREENING 3-D TOMOSYNTHESIS REASON FOR EXAM: Female, 58 years old. Screening Mammo PERTINENT HISTORY: No significant family history. TECHNIQUE: 2-D mammograms and 3-D Tomosynthesis of the breast (s) were performed. CAD was performed. COMPARISON: 10/26/2022 FINDINGS: The breast composition is heterogeneously dense that can obscure small breast masses. Scattered benign calcifications are seen. No dense spiculated masses or suspicious microcalcifications are identified. No architectural distortion is identified. There is no skin thickening or retraction. There has been no significant change since the prior study. BI/SCRN MAMM (CAD)W/RACHEL BILAT IMPRESSION: No mammographic signs of malignancy. Routine yearly mammograms recommended. ASSESSMENT CATEGORY: BIRADS Category 1: Negative. A letter regarding these results will be sent to the patient by the facility within 30 days. FOLLOW UP RECOMMENDATION: Yearly follow up mammogram recommended. (A) Approximately 10% of breast cancers are not detected by mammography. A normal mammogram should not delay biopsy of a clinically suspicious abnormality. Electronically Signed: Michael Swan MD at 13:08 EDT ,
== END | disposition home or self-care (01) ==
LOC: OPBI 12:21
PROVIDERS: PCP Internal Medicine; Referring Provider Internal Medicine; Visit Provider Internal Medicine
DX: Z12.31 Encounter for screening mammogram for malignant neoplasm of breast (principal)
CPT/HCPCS: 77063; 77067

== ENCOUNTER → 2024-09-04 | Outpatient (CLI) | payer OTHER, SELFPAY ==
[2024-09-04 13:01] LABS: ALB/GLOB Ratio 1.9 RATIO (0.9-2.4); AST(SGOT) 24 U/L (<=31); Alanine Aminotransfer ALT/SGPT 26 U/L (<=34); Albumin, Serum 4.2 g/dL (3.5-5.0); Alkaline Phosphatase 84 U/L (35-104); Anion Gap 9 (5-15); BUN 10 mg/dL (4-19); BUN/Creat Ratio 12.8 RATIO (10-20); Calcium,Total 9.5 mg/dL (7.6-11.0); Carbon Dioxide 27.9 mmol/L (21.0-32.0); Chloride 104 mmol/L (98-108); Creatinine, Serum 0.82 mg/dL (0.70-1.20); EST Glomerular Filtration Rate 84 (>60); Globulin 2.3 g/dL (2.2-4.2); Glucose 88 mg/dL (70-99); Potassium 4.3 mmol/L (3.3-5.1); Protein, Total 6.5 g/dL (5.9-8.4); Sodium Level 141 mmol/L (133-145); Total Bilirubin 0.41 mg/dL (0.00-1.30)
[2024-09-04 14:19] LABS: Cholesterol 171 mg/dL (<=200); High Density Lipoprotein 65 mg/dL; Low Density Lipoprotein Calc. 90 mg/dL; Triglycerides 79 mg/dL; Very Low Density Lipoprotein 16 mg/dL (5-40); cholesterol:hdl ratio screen 2.62
== END | disposition home or self-care (01) ==
LOC: MTLAB 09:49
PROVIDERS: PCP Internal Medicine; Referring Provider Internal Medicine Endocrinology, Diabetes & Metabolism; Visit Provider Internal Medicine Endocrinology, Diabetes & Metabolism
DX: E78.2 Mixed hyperlipidemia (principal); E04.2 Nontoxic multinodular goiter; E27.9 Disorder of adrenal gland, unspecified; R68.82 Decreased libido
CPT/HCPCS: 36415; 80053; 80061; 82627; 84443; 82626

== ENCOUNTER → 2025-03-07 | Outpatient (CLI) | payer OTHER, SELFPAY | END | disposition home or self-care (01) | LOC: LABSPEC 16:50 | PROVIDERS: PCP Internal Medicine | DX: J01.90 Acute sinusitis, unspecified (principal) | CPT/HCPCS: 87070; 87205 ==

== ENCOUNTER → 2025-05-08 | Outpatient (CLI) | payer OTHER, SELFPAY ==
[2025-05-08 18:52] LABS: Hepatitis C Antibody Nonreactive (Nonreactive)
[2025-05-10 14:09] LABS: EBV Acute VCA IgM < 36.0 U/mL (0.0-35.9); EBV-VCA IgG 322.0 U/mL (0.0-17.9)
== END | disposition home or self-care (01) ==
LOC: MTLAB 15:22
PROVIDERS: PCP Internal Medicine
DX: R53.83 Other fatigue (principal)
CPT/HCPCS: 36415; 86664; 86665; 86705; 86706; 86709; 86803

== ENCOUNTER → 2025-05-20 | Outpatient (CLI) | payer OTHER, SELFPAY ==
--- NOTE | 2025-05-20 15:15 | BI_ITS ---
EXAM: SCRN MAMM (CAD)W/RACHEL BILAT DATE: 05/20/2025 CLINICAL HISTORY: F, Age 59 y/o , SCREENING TECHNIQUE: Procedure Code: [id number] Modality: MG Procedure: SCRN MAMM (CAD)W/RACHEL BILAT COMPARISON: Prior exam(s) dated 02/09/2024 and 10/26/2022. FINDINGS: TISSUE DENSITY: The breasts are heterogeneously dense, which may obscure small masses. Bilateral Breast Mammographic Findings: No significant masses, calcifications or other abnormalities are identified. Benign-appearing round microcalcifications are seen in both breasts. A stable cluster of benign-appearing round and punctate calcifications are seen in the superior slightly outer, far anterior aspect of the left breast covering an area measuring approximately 3 mm. BI/SCRN MAMM (CAD)W/RACHEL BILAT IMPRESSION: Benign screening mammogram OVERALL FINAL ASSESSMENT BI-RADS 2: BENIGN RECOMMENDATION: Routine annual follow-up in 1 Year Additional Recommendation none A letter with findings and recommendations will be mailed to the patient. Reading Location: [id number]
== END | disposition home or self-care (01) ==
LOC: OPBI 14:57
PROVIDERS: PCP Internal Medicine; Referring Provider Internal Medicine; Visit Provider Internal Medicine
DX: Z12.31 Encounter for screening mammogram for malignant neoplasm of breast (principal)
CPT/HCPCS: 77063; 77067

== ENCOUNTER → 2025-06-07 | Outpatient (CLI) | payer OTHER, SELFPAY ==
--- NOTE | 2025-06-07 16:26 | CT_ITS ---
PROCEDURE: CHEST WITH CONTRAST 06/07/2025 REASON FOR EXAM: ABNORMAL CHEST X-RAY TECHNIQUE: Procedure Code: CTCHW Modality: CT Procedure: CHEST WITH CONTRAST Coronal and Sagittal reconstruction series were provided. CONTRAST: Isovue 370 VOLUME: 87 mL One or more dose reduction techniques were used (e.g., Automated exposure control, adjustment of the mA and/or kV according to patient size, use of iterative reconstruction technique). RADIATION DOSE SUMMARY: CTDlvol: 9.97 mGy DLP: 217.25 mGycm COMPARISON: No available prior images FINDINGS: Left upper and lower solid and sub-solid pulmonary nodules are seen, the largest is seen at its segment of the left lower lobe measures 3.8 mm in diameter. There is no focal infiltrate or consolidation. A few streaky opacities are present in the lower lobes bilaterally as well as the middle lobe and lingula, which may reflect subsegmental atelectasis and/or parenchymal scarring. There are no pleural effusions. No pneumothorax is seen. No mediastinal or hilar adenopathy is identified. The thyroid is unremarkable. The central airways are patent. The chest wall appears unremarkable. No axillary adenopathy is identified. The thoracic aorta is patent. The heart and pulmonary arteries are of normal size and configuration. There are no appreciable coronary artery calcifications. No pericardial effusion is identified. No aggressive-appearing osseous lesions are identified. Mild degenerative changes are present in the spine. The included abdominal cuts show no gross abnormality. CT/Chest WITH Contrast IMPRESSION: No acute chest abnormalities detected. Bilateral pulmonary scattered atelectatic and/or fibrotic bands. Few left small pulmonary nodules, no routine follow-up is required as per Fleis chner guidelines if the patient is categorized as low risk. Reading Location: [place] [id number]
== END | disposition home or self-care (01) ==
LOC: CT 16:22
PROVIDERS: PCP Internal Medicine; Referring Provider Internal Medicine; Visit Provider Internal Medicine
DX: R93.89 Abnormal findings on diagnostic imaging of other specified body structures (principal)
CPT/HCPCS: 71260; Q9967